=== PATIENT | male | born 1955 | race Caucasian/White ===

== ENCOUNTER → 2024-01-19 10:10 | Outpatient (REF) | payer MEDICARE, OTHER, SELFPAY | LOC: DHVS 10:10 | PROVIDERS: ATTENDING PHYSICIAN Surgery Vascular Surgery; FAMILY PHYSICIAN Nurse Practitioner Family | DX: I65.23 Occlusion and stenosis of bilateral carotid arteries (principal); I77.9 Disorder of arteries and arterioles, unspecified | CPT/HCPCS: 93880; 93922; 93925 ==

== ENCOUNTER 2024-03-08 10:15 | Inpatient (IN) | payer MEDICARE, OTHER, SELFPAY ==
[2024-03-08] VITALS (16 sets, daily range): BP systolic 86–161; BP diastolic 52–91; PULSE 57–66; BMI 23.1
[2024-03-08] MEDS: NSS 189 ML IV (06:44)
--- NOTE | 2024-03-08 08:42 | W.PN.CARDCBS ---
Addendum entered and electronically signed by Hemanth Parikh MD 03/08/24 11:49:
I saw and examined the patient.
The TURRET PUNCH OPERATOR's note was reviewed and I agree with the note.
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
EF of 20% after presenting for acute hypoxic respiratory failure and pulmonary edema at [facility] on 03/01. He was sent to [place] for cardiac catheterization. Cardiac catheterization today confirms multivessel disease, LVEDP was
normal at 12. He is being admitted for CT surgery evaluation. We are asked to follow along. Overall he is feeling well without any complaints of orthopnea, shortness of breath or chest pain. On exam he has a regular rate and rhythm with normal
S1-S2 no murmur rubs gallops were appreciated lungs clear to auscultation bilateral without any wheezes or rhonchi extremities are warm well-perfused including cyanosis or edema. No evidence of jugular venous distention. Alert and oriented x 3.
Overall, he has multivessel coronary disease in the setting of severe cardiomyopathy and recently admitted for heart failure. CT surgery to evaluate. He has multiple medical comorbidities that are quite serious. This would increase the
complications of his surgery. We await CT surgery opinion as to when and where the best option is for this procedure. LVEDP is normal so would not recommend ongoing diuresis at this time. Currently, chest pain-free, will continue hydralazine,
Imdur and carvedilol for his CAD and acute HFrEF that is now compensated. Additional GDMT as able.Given history of chronic type B dissection will need aggressive medical management of his blood pressure. Continue current medications for now with
titration as needed.
Will follow.
Original Note:
Today's Communication / Plan
-
C
asa/plavix today
gentle hydration post for CKD4
check creat post dye load
consult nephrology, CT surgery
Impression / Plan
-
This is the Cardiology Consult summary.
Full consult scanned into report.
PCP: Veronica Sánchez NP
CDY: Micha Shelton MD
68 y/o, admitted to [facility] 03/01 in with hypertensive crisis, acute hypoxemic respiratory failure with acute pulmonary edema. Known history medically managed multivessel CAD, with ANDREW, DORY, CKD3b with worsening Creat/GFR. Echo revealed new severely
reduced LVSF w/EF 28%, mod-severe CLVH, severely dilated LA, mod dil RA, no sig valvular abn. Nephrology consulted to help manage HTN and acute HF as LONNY/ARB, entresto, diuretics and spironolactone all contraindicated with worsening kidney status.
Currently tolerating combo of carvedilol, hydralazine, isosorbide, and minoxidil. Nuclear med perfusion scan completed which revealed multi-vessel CAD. Cath delayed due to renal function. Today, Creatinine is 2.51 (ranging 2.2-3.0) and GFR 25
(ranging 22-31).
He is stabilized with BPs originally 200/100s, now down to 130s/70s, off supplemental oxygen.
Transferred for [facility] today. Ventriculogram will not be performed.
PROBLEM LIST:
Acute hypoxemic respiratory failure
Acute pulmonary edema (without known history of CHF)
Leukocytosis
CKD3b/CKD4
Three-vessel coronary artery stenosis (seen on cardiac cath dated 10/05/2020)
Hypertension (documented as systemic and with hypertensive heart disease)
Carotid artery stenosis (status post carotid thromboendarterectomy 11/13/2020, right), left common carotid artery is completely occluded per duplex 08/22/2022
Infrarenal abdominal aortic aneurysm (3.0cm on MRI 03/04)
Renal artery stenosis with angioplasty
Mixed hyperlipidemia
Retinal vein thrombosis
Family history of CAD
IMPRESSION:
acute on chronic systolic HFrEF 28%
Ischemic cardiomyopathy
uncontrolled hypertension possibly renovascular-improved on Minoxidil
disseminated vascular disease
stress test consistent with multi-vessel disease
significant orthostatic BP fluxes without symptoms
Patent RRA- Left RA not well visualized on Abd MRI
PLAN:
CAD/Cardiomyopathy/Acute on chronic systolic HFrEF 28%
LHC today
Daily plavix 75mg started 03/05- continue with aspirin 81mg/d (got doses of both today)
continue isosorbide 120/d, carvedilol 25/BID, hydralazine 100 TID
will hold off on diuretics for now- had been on torsemide but on hold since 03/06
check BNP in AM, monitor lytes
plan pending cath results
CKD4-
Will give gentle hydration post cath
monitor renal function post dye load
consult nephrology re: CKD4
HTN- Continue BP management with current meds
BP low 90-100s- will hold off on minoxidil for now and monitor
PREADMIT DATA:
Patient noted yesterday that he started to feel poorly with increasing shortness of breath and noted that his blood pressures were elevated. He claims he took his normal morning medications and had no issues however his blood pressure remained
elevated and his breathing got to the point that he was uncomfortable and felt that he was gasping for air. At that point he went to the ED and was noted to have hypertensive urgency.
Patient was admitted with hypertensive crisis associated with worsening creatinine and congestive heart failure. His congestion seemed to improve and he is symptomatically much better today. An echocardiogram however demonstrated left ventricular
enlargement with severe left ventricular dysfunction.
Given his chronic kidney disease will need help from nephrology with adding GDMT.
Will discontinue labetalol and start carvedilol.
Unfortunately spironolactone is contraindicated with his CKD and potassium level of 4.9 in spite of being on diuretics
He is not on an LONNY or an ARB and question would be whether this could be added to his medical regimen or better yet Entresto
He is not on an SGLT2 inhibitor as well and these are all medications that we would want and for treatment of his LV dysfunction and congestive heart failure.
Will reach out to nephrology to help with medication adjustments.
2D ECHO 02/29/24:
Severely reduced LVSF, EF 28.9%, mod-severe CLVH
indeterminate LV diastolic dysfunction
Severely dilated LA, mod dilated RA
no hemodynamically sig valvular abnormalities
mild MR
Left heart catheterization 10/05/2020:
Assessment:
ANGIOGRAPHIC FINDINGS:
Normal LV size, normal wall motion,
Calculated EF: 65%
Coronary Angiography:
Dominance: Co-dominant
Left Main: Normal size, no disease.
Left Anterior Descending: moderate size with 50% proximal and 99% mid with distal vessel filing via left to left collaterals.
Ramus Branch: Large vessel giving off a good size tiffanie-lateral branch with 75% proximal stenosis and a large lateral branch with 65% proximal stenosis after the bifurcation.
Left Circumflex: Normal size co-dominant vessel. OM1 good size with 70% proximal stenosis. The mid and distal circumflex are good size and free of disease supplying 3 small to moderate LPL branches and collaterals to distal RCA.
Right Coronary: Moderate size co-dominant vessel with 60% ostial and 100% mid stenosis after RV marginal branch. The mid RCA gives off a small RV branch and the distal RCA is supplied by collaterals.
Progress Note - Government Program Manager
Subjective
Date of Service: March 08, 2024
Denies cp/palps/dyspnea
feels much better than last week
Objective
Vital Signs and I&O:
Vital Signs
Temp Pulse Resp Pulse Ox
97.0 F 52 20 98
03/08/24 06:26 03/08/24 06:26 03/08/24 06:26 03/08/24 06:26
Vital Signs
Temp Pulse Resp Pulse Ox
97.0 F 52 20 98
03/08/24 06:26 03/08/24 06:26 03/08/24 06:26 03/08/24 06:26
Physical Exam
Physical Exam
AAOx3, MAEE 5/
RRR S1 S2 no murmurs
CTA but decreased bibasilar, non labored
soft abd, + bs
bilat extremities w/palpable distal pulses, no edema
--- NOTE | 2024-03-08 08:55 | ITS.CL.CATH ---
Casting Machine Set Up Operator - Catheterization
Cardiac Catheterization
Procedure Report:
LEFT HEART CATHETERIZATION
Date of Procedure: [03/08/2024]
Procedures performed:
1: Coronary angiography
2: Conscious sedation
Primary Care Physician: [Unknown]
Primary Tube Handler: Donell Shelton
INDICATION: Cardiomyopathy
ACCESS: Risks and benefits of the procedure were explained to the patient. After listening to risks and benefits, the patient agreed to proceed. Right radial artery was prepped and draped in usual sterile fashion. A 6 Kittitian sheath was placed in
the right right radial artery using the Seldinger over the wire technique.
HEMODYNAMIC FINDINGS (mmHg):
LV(s/d,EDP): [97/61 LVEDP of 12]
Ao(s/d,m): [105/52 with a mean of 68]
ANGIOGRAPHIC FINDINGS:
Using a JL 3.5 catheter, the aortic valve was crossed and left ventricle. Pressures were recorded and pullback was performed. Left ventriculography was not performed to conserve IV dye used.
Coronary Angiography: Using a 5 Kittitian JR4 catheter, right coronary artery was engaged. Right coronary artery was imaged in multiple projections.
Dominance: [Likely left dominant system, but difficult to tell because of the occluded right.]
Left Main: Severely stenosed. Short left main coronary artery. Severely calcified. At least 50% ostial stenosis. There is severe pressure dampening upon engagement with a 6 Kittitian diagnostic catheter 5 Kittitian diagnostic catheter and 4 Kittitian
diagnostic catheter. I had difficulty filling the coronary arteries because of the left main stenosis.
Left Anterior Descending: [Large vessel. Severely calcified. 99% stenosis long diffuse disease in the midsegment with diminished resting flow. Very large septal employment clerk branches giving collaterals to the distal right coronary artery. 1 large
diagonal branch with severe ostial stenosis.
Left Circumflex: [Large vessel. Probably dominant. 60 to 70% ostial left circumflex artery stenosis. Large OM1 vessel. 80% proximal OM1 stenosis.
Right Coronary: [Right coronary artery is 100% chronically totally occluded. There is a marginal branch that is patent with severe disease in the proximal and mid segments. ]
Fluoroscopy Time (min): [11.8 minutes]
Radiation Dose (mGy): 650.83 mGy
DAP (Gy.cm2): 56.374.
Closure device: None. A TR band was applied for hemostasis at the right wrist.
Complications: None.
ASSESSMENT:
1: Severe triple-vessel coronary artery disease
2: Normal left ventricular end-diastolic pressure
CONCLUSIONS and RECOMMENDATIONS:
1: [Based on the patient's presentation, severe coronary artery disease, CT surgery consultation was recommended.]
I was present with the patient for the duration of the moderate sedation and supervised staff who monitored the patient for the entire procedure. Details of sedation are entered by the nurse administering the sedation and details of the patient's
monitoring status are entered by a sign monitor role staff member into the [facility] electronic record system. Please see the nursing flow sheets for documentation of the name of the independent trained observer, and intra-service start and
end times.
I administered moderate sedation throughout this [40] minute procedure. An independent trained observer administered medications at my direction, and monitored, along with the monitor role staff member, the patient's level of consciousness and
physiological status throughout
[2024-03-08] MEDS: NSS 1000 IV (10:35)
--- NOTE | 2024-03-08 10:48 | HPS.HSE ---
Family Physician
-
Family Physician: CANDI Davies
Chief Complaint
-
CHF
History of Present Illness
68-year-old male admitted to [facility] February 28 for flash pulmonary edema, shortness of breath. Found to be in hypertensive emergency with acute heart failure and acute kidney injury.
Treated for heart failure and improved. Referred to [facility] today as a transfer for cardiac catheterization and consideration of CABG.
Currently patient feels well, is asymptomatic.
Medical History
Past Medical History
Past Medical History: Reports Other
Additional Past Medical History:
CAD, three-vessel
CKD 3b
Essential hypertension
Orthostatic hypotension
Infrarenal abdominal aortic aneurysm
Renal artery stenosis, treated with angioplasty
Mixed hyperlipidemia
Retinal vein thrombosis
Carotid artery stenosis
Past Surgical History: Reports Other
Additional Past Surgical History:
Right CEA
Tonsillectomy
Social History
Tobacco: Non-smoker
Alcohol: Former
Drug: None
Family History
Family History: CAD
Allergies / Home Medications
Allergies reflects when Allergies were last updated in [employer].
Home Medications with original date entered in [employer]
Allergy/Medication List:
Allergies
Allergy/AdvReac Type Severity Reaction Status Date / Time
atorvastatin [From Lipitor] Allergy MYALGIA Verified 03/08/24 06:41
Home Medications
labetalol 100 mg tablet 100 mg PO BID Blood pressure 11/01/20
ezetimibe 10 mg tablet (Zetia) 10 mg PO DAILY 03/07/24
hydralazine 100 mg tablet 100 mg PO BID 03/07/24
hydralazine 50 mg tablet 50 mg PO DAILY 03/07/24
minoxidil 2.5 mg tablet 5 mg PO DAILY 03/07/24
Review of Systems
-
History Source: Patient
A 12 point ROS was completed and negative except as noted: Yes
Physical Exam
Vital Signs
Vital Signs
Temp Pulse Resp BP Pulse Ox
97.6 F 51 18 86/56 94
03/08/24 09:03 03/08/24 09:18 03/08/24 09:03 03/08/24 09:18 03/08/24 09:03
Physical Exam
General: Well Developed, Well Nourished, No Apparent Distress and Comfortable
HEENT: NormoCephalic, Anicteric and Moist mucous membranes
Respiratory: Clear
Cardiac: S1/S2 and Regular Rhythm
GI: Soft, Non Tender and Non Distended
Genito-urinary: Deferred by me
Musculoskeletal: No Clubbing, No Cyanosis and No Edema
Skin: Warm and Dry
Neuro: AO x 3
Hematologic/Lymphatic: No Lymphadenopathy
Psych: Calm
Impression/Plan
-
Recent acute hypoxic respiratory failure - admitted to [facility] February 28. Diagnosed with hypertensive emergency on admission. Required BiPAP therapy and treatment of CHF.
Three-vessel coronary artery disease -admit to IVU. Cardiac catheterization results noted. CT surgery consulted.
Essential hypertension -relatively hypotensive currently. Patient believes he received all his antihypertensives this morning and [facility] prior to transfer. IV fluids ordered. Hold further antihypertensives until blood pressure
improves. Check orthostatic vital signs.
HUEY on CKD 3B -admitted to [facility] last week with HUEY. Check labs in the morning. Monitor for any contrast-induced nephropathy. IV fluids ordered.
Renal artery stenosis -treated with angioplasty in the past.
Infrarenal abdominal aortic aneurysm
Carotid stenosis -underwent right CEA in the past.
Hyperlipidemia
Full code
--- NOTE | 2024-03-08 11:22 | W.CON.NEPH ---
Consultation
-
Date/Time Consultation Requested: 03/08/24 0841
Date/Time Consultation Performed: 03/08/24 1245
Requesting Provider: Fay Pyle
Performing Provider: Mignon Alexis
Reason for Consultation: HUEY with CKD
Medical History
-
Chief Complaint: SOB
History of Present Illness:
68 y/o, admitted to [facility] 03/01 in with hypertensive crisis, acute hypoxemic respiratory failure with flash pulmonary edema. Known history medically managed multivessel CAD, with ANDREW, DORY, CKD3b with baseline cr 1.7-2 (follows Dr [place]), known ?renal
art stenosis s/p stent noted in HUEY and Echo revealed new severely reduced LVSF w/EF 28%, mod-severe CLVH, severely dilated LA, mod dil RA. He also has resitant HTN for which managed with carvedilol, hydralazine, isosorbide, and minoxidil. GDMT was
limited due to HUEY. He underwent Nuclear med perfusion scan at [facility] which revealed multi-vessel CAD hence Transferred for [facility] today. Cath shows MVD and CT surg consulted. Nephrology consulted to manage HUEY with CKD. Today, Creatinine is 2.51 (ranging
2.2-3.0 at [facility] per records), no nephro records to review. Pt reports undergoing MRA of renal art and there was concern of poor visualization of left renal art- I do not have reports. he offers no CP or sob, abd pain. No n/v. no dysuria.
Past Medical History
CAD, three-vessel
CKD 3b baseline cr 1.7-2-follows Dr washintgon
Essential hypertension
Orthostatic hypotension
Infrarenal abdominal aortic aneurysm
Renal artery stenosis, treated with angioplasty
Mixed hyperlipidemia
Retinal vein thrombosis
Carotid artery stenosis
Past Surgical History: Other (Right CEA Tonsillectomy)
Social History
Tobacco: Non-Smoker
Alcohol: Former
Drug: None
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
Family History
no CKD
Family History: Not Pertinent
Allergies / Home Medications
Allergy/AdvReac Type Severity Reaction Status Date / Time
atorvastatin [From Lipitor] Allergy MYALGIA Verified 03/08/24 06:41
�Medication �Instructions �Recorded �Confirmed �Type
labetalol 100 mg tablet 100 mg PO BID Blood pressure 11/01/20 03/07/24 History
ezetimibe 10 mg tablet (Zetia) 10 mg PO DAILY 03/07/24 03/07/24 History
hydralazine 100 mg tablet 100 mg PO BID 03/07/24 03/08/24 History
hydralazine 50 mg tablet 50 mg PO DAILY 03/07/24 03/07/24 History
minoxidil 2.5 mg tablet 5 mg PO DAILY 03/07/24 03/07/24 History
Review of Systems
-
All complete 12 point ROS have been inquired and found negative other than state din HPI
Physical Exam
Vital Signs
Vital Signs
Temp Pulse Resp BP Pulse Ox
97.6 F 56 18 102/53 94
03/08/24 09:03 03/08/24 11:00 03/08/24 09:03 03/08/24 11:00 03/08/24 09:03
Lab Results
reportedly cr was at 22.5 today at [facility]
Cath:
ASSESSMENT:
1: Severe triple-vessel coronary artery disease
2: Normal left ventricular end-diastolic pressure
Physical Exam
General: Awake, Alert, Oriented, AOx3 and No Distress
HEENT: EOMI, Anicteric, Facial Symmetry, Neck Supple and No JVD
Respiratory: Clear, Normal Excursion and Nonlabored Respirations
Cardiac: S1/S2 and Regular Rate/Rhythm
Breast: Deferred by me
Abdomen: Soft, Nontender and Nondistended
Musculoskeletal: No Cyanosis and No Edema
Skin: No Rash
Neuro: Nonfocal/Grossly Intact
Psych: Mood/afflect pleasant, Insight/judgement good and Appropriate
Data Reviewed
-
Labs: Labs Reviewed by me, Discussed with Nurse and Discussed with Patient
Assessment/Plan
-
IMP:
acute on chronic systolic HFrEF 28%
MVD on cath 03/08
Ischemic cardiomyopathy
uncontrolled hypertension possibly renovascular-improved on Minoxidil
disseminated vascular disease
Recent acute hypoxic respiratory failure
HUEY on CKD 3B -cr 1.7-2, Dr Washington
Renal artery stenosis -treated with angioplasty in the past.
Infrarenal abdominal aortic aneurysm
Carotid stenosis s/p right CEA in the past.
Hyperlipidemia
significant orthostatic BP fluxes without symptoms
Patent RRA- Left RA not well visualized on Abd MRI
PLan:
A/to [facility] flash with pulm edema, low EF, HTN and acute reps failure on 03/05 here for [facility] today
noted MVD on cath 03/08, CT surg consulted
HUEY with CKD-cr reportedly at 2.5 today, baseline cr likely at 1.7-2
monitor labs with preventive IVF
BP are low currently-BP meds with holding parameters
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
vol status seem stable clinically, LVEDP of 12
he also noted to have MRA yesterday-but left RA not visualized well-will need records to review
follow labs daily
d/w pt , he is aware of RODOLFO risk post cath
d/w nursing
--- NOTE | 2024-03-08 13:37 | CONSULT.CT ---
Consultation
-
Performing Provider: Alexis Jain PA-C
Reason for Consultation: Multivessel CAD, CABG Consideration
Patient History
Physicians
Family Physician: Veronica Sánchez NP
Outpatient Final Expense Agent: Donell Shelton MD
Inpatient Final Expense Agent: Ammon Sánchez MD (), Roma Parikh MD
History of Present Illness
The patient is a 68 year old white male with a PMHx significant for CAD, bilateral carotid artery stenosis with prior R CEA by Dr. Alanis and occluded L ICA, DORY with prior angioplasty to right renal artery, HTN, HLD, chronic type B aortic
dissection, infrarenal AAA, orthostatic hypotension, CKD IIIb-IV who presented initially to [facility] with complaints of progressively worsening dyspnea, fatigue, lightheadedness. He states he never had chest pain. He was found to have significant
pulmonary edema and new EF of 20-30%. Also notable was a new HUEY. He was treated medically and recovered from the acute heart failure and renal failure and was subsequently transferred here for [facility]. This revealed multivessel coronary artery disease
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 Given these findings, he was referred for CABG as the definitive revascularization strategy.
Currently, he is resting comfortably and without complaints. He denies a history of CVA/TIA, bleeding/clotting disorders, dysphagia, liver disease, issues with prior anesthesia, chest radiation/procedures, prior arrythmias. He is a lifelong
nonsmoker, social ETOH. 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 He does have prior exposures to asbestos.
Past Medical History
Multivessel CAD
ICMP, LVEF 20-30%
CKD IIIb-IV
Carotid Artery Stenosis, prior R CEA, known occluded L ICA
HTN
HLD
DORY with prior R RA Angioplasty
Chronic Type B Aortic Dissection
Infrarenal AAA
Past Surgical History
R CEA
Tonsillectomy
Social History
Alcohol: Occasional
Drug: None
Tobacco: Non-Smoker
Allergies
Allergy/AdvReac Type Severity Reaction Status Date / Time
atorvastatin [From Lipitor] Allergy MYALGIA Verified 03/08/24 06:41
Home Medications
�Medication �Instructions �Recorded �Confirmed �Type
labetalol 100 mg tablet 100 mg PO BID Blood pressure 11/01/20 03/07/24 History
ezetimibe 10 mg tablet (Zetia) 10 mg PO DAILY 03/07/24 03/07/24 History
hydralazine 100 mg tablet 100 mg PO BID 03/07/24 03/08/24 History
hydralazine 50 mg tablet 50 mg PO DAILY 03/07/24 03/07/24 History
minoxidil 2.5 mg tablet 5 mg PO DAILY 03/07/24 03/07/24 History
Review of Systems
-
History Source: Patient
General: Reports No Symptoms
HEENT: Reports No Symptoms
Respiratory: Reports SOB
Cardiac: Reports Known Vascular Disease
Abdomen/GI: Reports No Symptoms
: Reports No Symptoms
Musculoskeletal: Reports No Symptoms
Skin: Reports No Symptoms
Neurological: Reports No Symptoms
Vascular: Reports No Symptoms
Physical Exam
Vital Signs
Temp 97.6 F 03/08/24 09:03
Temp route: Oral 03/08/24 09:03
Pulse 56 03/08/24 11:00
Rhythm: Sinus bradycardia 03/08/24 11:05
Resp Rate 18 03/08/24 09:03
Blood pressure 102/53 03/08/24 11:00
Blood pressure extremity used: Left upper arm 03/08/24 09:03
Position: Lying 03/08/24 09:03
MAP (cuff-Mio Monitor) 68 03/08/24 11:00
SaO2 94 03/08/24 09:03
Oxygen Mode of Delivery Room air 03/08/24 11:05
Can the patient verbally communicate their pain? Yes 03/08/24 11:05
Actual Weight 63.049 kg 03/08/24 06:25
Body Mass Index (BMI) 23.1 03/08/24 06:25
Diagnostic Studies
[facility] 03/08/2024
Left Main: Severely stenosed. Short left main coronary artery. Severely calcified. At least 50% ostial stenosis. There is severe pressure dampening upon engagement with a 6 British diagnostic catheter 5 British diagnostic catheter and 4 British
diagnostic catheter. I had difficulty filling the coronary arteries because of the left main stenosis.
Left Anterior Descending: [Large vessel. Severely calcified. 99% stenosis long diffuse disease in the midsegment with diminished resting flow. Very large septal food storeroom clerk branches giving collaterals to the distal right coronary artery. 1 large
diagonal branch with severe ostial stenosis.
Left Circumflex: [Large vessel. Probably dominant. 60 to 70% ostial left circumflex artery stenosis. Large OM1 vessel. 80% proximal OM1 stenosis.
Right Coronary: [Right coronary artery is 100% chronically totally occluded. There is a marginal branch that is patent with severe disease in the proximal and mid segments. ]
Exam
General: Well Developed, Well Nourished and No Apparent Distress
HEENT: Normocephalic and Anicteric
Neck: Trachea Midline
Respiratory: Clear
Cardiac: S1/S2 and Regular Rhythm
GI: Soft, Non Tender and Non Distended
Rectal: Deferred by Provider
Skin: Warm and Dry
Neuro: Awake and AO x 3
Psych: Calm
Assessment / Plan
-
1. Multivessel CAD: Given the patient's age and multivessel CAD with with left main component, we will consider CABG as the definitive revascularization strategy. I had a long discussion with the patient about the perioperative expectations
including indications, risks, benefits, post op course and expected restrictions. He is adamant that due to his work, he would be unable to have major surgery & be restricted from work for the next couple of months as he already has some jobs lined
up for Mar/Apr. I explained to him in detail that he has significant coronary artery disease and that CABG is often the most durable solution to this problem. He states that he would only consider it if there were no alternatives. Given this, will
need to have Dr. Turk review the case with IC and come to a consensus on what would be best for him. Hold plavix for now as this requires a 5 day washout in the event that surgery is pursued. Preop risk stratification will be put on hold for
now.
2. HFrEF, LVEF 20-30%: GDMT per cardiology. Will be at increased risk for post op shock & associated complications.
3. Severe carotid artery stenosis, s/p R CEA: known occluded L ICA. There is antegrade vertebral flow bilaterally on recent duplex. Follows with Dr. Alanis.
4. CKD IIIb-IV: at risk for RODOLFO. Nephrology consulted. Follow closely. HF GDMT limited by renal function.
5. Chronic Type B Aortic Dissection: Strict BP control, SBP <130
6. Infrarenal AAA
7. Hx of Renal Artery Stenosis s/p R RA Angioplasty
8. HTN
9. HLD
The case will be discussed in detail with the attending surgeon Dr. Turk. He will provide definitive recommendations regarding surgical candidacy/timing in the form of an addendum.
Data Reviewed
-
EKG: Tracing Personally Visualized and interpreted
Speech/Language Therapist: Image Personally Visualized and interpreted
Labs: Labs Reviewed by me
Old Records: Reviewed
Total Time Spent with Patient (in minutes): 60
[2024-03-08] MEDS: APRESOLINE 100 MG PO ×2 (17:19→22:22)
--- NOTE | 2024-03-08 18:41 | CM ---
spoke to pt in room, he is prev indep, lives with his in a 3 story home with 4 steps to enter. he denies any dme's. plan is for CABG this admission , possibly thursday. cm following and will do preop teaching this week.
[2024-03-08] MEDS: COREG 25 MG PO (19:40)
--- NOTE | 2024-03-08 23:16 | PTCARENOTE ---
AOX3 and pleasant. Tele- SR w/ PVCs. HR 60-70s. Pt has no c/o pain/discomfort at this time. Currently in bed; call soila w/in reach.
[2024-03-09] VITALS (10 sets, daily range): BP systolic 111–157; BP diastolic 67–89; PULSE 56–64; BMI 23.7
[2024-03-09 03:33] LABS: Hematocrit 39.1 % (39.0-52.0); Hemoglobin 13.5 g/dL (13.0-18.0); Mean Corp Hgb Conc. 34.5 g/dL (33.0-37.0); Mean Corpuscular Hgb 28.7 pg (27.0-31.0); Mean Corpuscular Volume 83.2 fL (80.0-94.0); Mean Platelet Volume 11.5 fL (7.4-10.4); Platelet Count 211 10^3/uL (130-400); Red Cell Dist. Width 13.2 % (11.5-14.5); White Blood Cell Count 11.4 10^3/uL (4.8-10.8)
[2024-03-09 03:52] LABS: NT-proBNP 2000 pg/ml
[2024-03-09 03:58] LABS: ALT (SGPT) 24 U/L (0-50); AST (SGOT) 27 U/L (17-59); Albumin 3.8 g/dl (3.5-5.0); Alkaline Phosphatase 98 U/L (38-126); Blood Urea Nitrogen 51 mg/dl (9-20); Calcium 9.3 mg/dl (8.4-10.2); Carbon Dioxide 23 mmol/L (22-30); Chloride 103 mmol/L (98-107); Estimated Creatinine Clearance 28 ml/min; Glucose 93 mg/dl (70-99); HDL Cholesterol 49 mg/dl; LDL Cholesterol, Calculated 89 mg/dl; Potassium 4.7 mmol/L (3.5-5.1); Sodium 140 mmol/L (135-145); Total Bilirubin 0.5 mg/dl (0.2-1.3); Total Cholesterol 169 mg/dl (50-199); Total Protein 6.6 g/dl (6.3-8.2); Triglyceride 158 mg/dl (10-149); Very Low Density Lipoprotein 31 mg/dl (0-30); eGFR 31.83
--- NOTE | 2024-03-09 08:11 | W.PN.HOSP.TC ---
Today's Communication/Plan
-
Await CT surgery consult
Assessment / Plan
Assessment / Plan
Gen-AAOx3, NAD
HEENT-NC, AT, anicteric, clear oral mm
Neck-supple
CV-reg, no M, +S1/S2
Lungs-clear B/L
Abd-soft, NT, ND
Ext-no edema
Musculoskeletal-no cyanosis, clubbing
Skin-warm and dry
Neuro-grossly non-focal
Psych-calm, cooperative
Recent acute hypoxic respiratory failure - admitted to [facility] February 28. Diagnosed with hypertensive emergency on admission. Required BiPAP therapy and treatment of CHF. Oxygenation currently normal on room air, 98%.
Three-vessel coronary artery disease -admit to IVU. Cardiac catheterization results noted. CT surgery consulted. Continue aspirin, beta-blockade.
Essential hypertension -hypotension resolved. Antihypertensives ordered with hold parameters. Not orthostatic.
HUEY on CKD 3B -admitted to [facility] last week with HUEY. Monitor for any contrast-induced nephropathy. IV fluids ordered. Creatinine 2.2, appears to be at baseline. Nephrology following.
Renal artery stenosis -treated with angioplasty in the past.
Infrarenal abdominal aortic aneurysm
Carotid stenosis -underwent right CEA in the past.
Hyperlipidemia
Full code
Anticipated Discharge: > 48 hours
Subjective/Interval History
-
Date of Service: March 09, 2024
Patient seen and examined. No complaints.
Objective Data
-
Labs:
Laboratory Results
03/09/24
03:01
WBC 11.4 H
Hgb 13.5
Hct 39.1
Plt Count 211
Sodium 140
Potassium 4.7
Chloride 103
Carbon Dioxide 23
BUN 51 H
Creatinine 2.2 H
Glucose 93
Calcium 9.3
Total Bilirubin 0.5
AST 27
ALT 24
Alkaline Phosphatase 98
Vital Signs:
Vital Signs
Temp Pulse Resp BP Pulse Ox
98.1 F 66 16 124/81 98
03/09/24 02:53 03/09/24 02:40 03/09/24 02:53 03/09/24 02:40 03/09/24 02:53
I&O
03/08/24 03/09/24 03/10/24
06:59 06:59 06:59
Intake Total 630 / 630
Balance 630 / 630
Review of Systems
-
History Source: Patient
All other systems: Reviewed and negative
[2024-03-09] MEDS: APRESOLINE 100 MG PO (09:50)
[2024-03-09] MEDS: COREG 25 MG PO ×2 (09:50→20:55)
[2024-03-09] MEDS: IMDUR (EXTENDED RELEASE) 120 MG PO (09:51)
[2024-03-09] MEDS: ZETIA 10 MG PO (09:51)
[2024-03-09] MEDS: LOW STRENGTH ASPIRIN 81 MG PO (09:51)
--- NOTE | 2024-03-09 10:43 | PTCARENOTE ---
Received patient this morning oob in the chair. Slept well, denies any chest pain or sob. Waiting to speak with CT surgery. Very concerned about need for surgery, agreeable to the surgery but due to financial considerations would like to wait until
May or feels that he would not be able to afford his bills etc. Encouraged to discuss this with his physician.
--- NOTE | 2024-03-09 10:57 | W.PN.NEPH.PH ---
Today's Communication / Plan
-
observe
follow bmp
Assessment/Plan
-
IMP:
acute on chronic systolic HFrEF 28%
MVD on cath 03/08
Ischemic cardiomyopathy
uncontrolled hypertension possibly renovascular-improved on Minoxidil
disseminated vascular disease
Recent acute hypoxic respiratory failure
HUEY on CKD 3B -cr 1.7-2, Dr Donald
Renal artery stenosis -treated with angioplasty in the past.
Infrarenal abdominal aortic aneurysm
Carotid stenosis s/p right CEA in the past.
Hyperlipidemia
significant orthostatic BP fluxes without symptoms
Patent RRA- Left RA not well visualized on Abd MRI
PLan:
A/to [facility] flash with pulm edema, low EF, HTN and acute reps failure on 03/05 here for [facility] today
noted MVD on cath 03/08, CT surgery consulted : decision pending
HUEY with CKD-cr reportedly at 2.2 today, baseline cr likely at 1.7-2 , urine output not recorded, weights up
Hemodynamically stable on hydralazine and carvedilol
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
volume status seem stable clinically, LVEDP of 12,currently off diuretics
he also noted to have MRA 03/07-but left RA not visualized well-will need records to review
follow labs daily
d/w pt , he is aware of RODOLFO risk post cath
d/w nursing
-
-
Date of Service: March 09, 2024
CC / HPI / ROS
-
Chief Complaint:
HUEY
History of Present Illness:
Creatinine improved to 2.2
Hemodynamically stable
Review of Systems:
No chest pain or shortness of breath
Subjectively nonoliguric
Labs
-
Labs:
WBC 11.4 10^3/uL (4.8-10.8) H 10/02/24 03:01
RBC 4.70 10^6/uL (4.70-6.10) 03/09/24 03:01
Hgb 13.5 g/dL (13.0-18.0) 03/09/24 03:01
Hct 39.1 % (39.0-52.0) 03/09/24 03:01
Plt Count 211 10^3/uL (130-400) 03/09/24 03:01
Sodium 140 mmol/L (135-145) 03/09/24 03:01
Potassium 4.7 mmol/L (3.5-5.1) 03/09/24 03:01
Chloride 103 mmol/L (98-107) 03/09/24 03:01
Carbon Dioxide 23 mmol/L (22-30) 03/09/24 03:01
BUN 51 mg/dl (9-20) H 03/09/24 03:01
Creatinine 2.2 mg/dL (0.7-1.3) H 03/09/24 03:01
eGFR 31.83 03/09/24 03:01
Glucose 93 mg/dl (70-99) 03/09/24 03:01
Calcium 9.3 mg/dl (8.4-10.2) 03/09/24 03:01
Zbd-T-Puitgvnnzfi Pept 2000 pg/ml 03/09/24 03:01
Albumin 3.8 g/dl (3.5-5.0) 03/09/24 03:01
Physical Exam
-
Vital Signs:
Vital Signs
Temp Pulse Resp BP Pulse Ox
97.9 F 62 20 157/87 96
03/09/24 08:25 03/09/24 09:50 03/09/24 08:25 03/09/24 09:50 03/09/24 08:25
Cardiovascular:: Regular rate and rhythm
Respiratory:: Bilateral: CTA
Lung Excursion:: Normal
Abdomen:: Nontender
Bowel Sounds:: Normal
Extremity Edema:: None: Bilateral:
Alanis Catheter: No
--- NOTE | 2024-03-09 12:17 | W.PN.CD ---
Addendum entered and electronically signed by Balta Montes DO 03/09/24 15:57:
I have reviewed the patient's films and discussed the issues with the patient.
There are no percutaneous options for LAD revascularization.
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
He is willing if not eager to undergo CABG, but would like to wait until after Thanksgi so he can finish two larger projects and have enough income to pay rent/utilities until his work picks up again.
We discussed risks and benefits to this strategy, including the fact that we cannot confidently say he will not return with similar symptoms.
He understands all of these factors.
His symptoms are more related to heart failure, likely due to hypertensive emergency/crisis, not acute coronary syndrome.
Based on the patient's understanding of the risks/benefits and his presentation, it is reasonable to make sure that his blood pressure is controlled to avoid recurrent flash pulmonary edema, that he is taking maximally tolerated GDMT, and that he
has plans to return for elective CABG after Thanks. We will monitor response to doxazosin after removal of hydralazine.
Original Note:
Today's Communication / Plan
-
CABG evaluation.
D/C hydralazine.
Start doxazosin 1 mg daily and monitor.
Impression / Plan
-
Impression/Plan: 68 y/o male with known HTN, CKD, ANDREW s/p RCEA (HEAD OF GLOBAL STRATEGIC PARTNERSHIPS of LCA), known CAD being medically managed and [place] type B dissection involving the renal arteries admitted to [facility] 03/01 in with hypertensive crisis, acute hypoxemic respiratory
failure with acute pulmonary edema and a new diagnosis of ischemic cardiomyopathy, transferred for repeat catheterization and subsequent CABG evaluation.
#CAD
-Acute on chronic.
-Coronary angiography re-confirms severe, multivessel disease.
-CABG evaluation.
-Continue aspirin, ezetimibe.
#ICMO
-New diagnosis.
-Not currently in decompensated heart failure.
-GDMT is limited by renal function. He is currently on carvedilol, hydralazine and isosorbide mononitrate.
-He is currently beta blocked, but hydralazine is contraindicated in aortic dissection.
#Hypertension/Hypertensive crisis
-Acute on chronic, now controlled.
-Continue carvedilol.
-Discontinue hydralazine.
-Consider doxazosin or terazosin for BP control, given inability to use ACEI/ARB/ARNi/MRA for renal function and CCB for LVEF 25-30%.
#[place] Type B dissection/AAA
-Chronic.
-Involving the left renal artery.
-AAA = 3.0 cm on MRI from 03/04/2024.
-Imaging/reports currently unavailable.
#CKD3b/DORY
-Stable. GFR = 31.
-Remote renal artery stenosis s/p renal artery stent placement.
-Monitor with medication adjustments.
#HLD
-Chronic, stable.
-Total cholesterol = 169, LDL = 89, HDL = 49, Triglycerides = 158.
-Intolerance of atorvastatin.
-Continue ezetimibe 10 mg daily.
-Rechallenge with statin vs. PCSK9i.
-Goal LDL < 55, triglycerides < 150.
PCP: Veronica Sánchez NP
CDY: Micha Shelton MD
Subjective/Interval History:
No acute events.
Renal function is stable.
DATA:
2D ECHO 02/29/24:
Severely reduced LVSF, EF 28.9%, mod-severe CLVH
indeterminate LV diastolic dysfunction
Severely dilated LA, mod dilated RA
no hemodynamically sig valvular abnormalities
mild MR
Left heart catheterization 10/05/2020:
Assessment:
ANGIOGRAPHIC FINDINGS:
Normal LV size, normal wall motion,
Calculated EF: 65%
Coronary Angiography:
Dominance: Co-dominant
Left Main: Normal size, no disease.
Left Anterior Descending: moderate size with 50% proximal and 99% mid with distal vessel filing via left to left collaterals.
[place] Branch: Large vessel giving off a good size tiffanie-lateral branch with 75% proximal stenosis and a large lateral branch with 65% proximal stenosis after the bifurcation.
Left Circumflex: Normal size co-dominant vessel. OM1 good size with 70% proximal stenosis. The mid and distal circumflex are good size and free of disease supplying 3 small to moderate LPL branches and collaterals to distal RCA.
Right Coronary: Moderate size co-dominant vessel with 60% ostial and 100% mid stenosis after RV marginal branch. The mid RCA gives off a small RV branch and the distal RCA is supplied by collaterals.
Physical Exam
Vital Signs/Labs
Vital Signs
Temp Pulse Resp BP Pulse Ox
37.2 C 62 20 118/67 94
03/09/24 11:19 03/09/24 12:00 03/09/24 11:19 03/09/24 11:21 03/09/24 11:19
03/08/24 03/09/24 03/10/24
11:59 11:59 11:59
Actual Weight 63.049 kg 64.5 kg
03/09/24 03:01
03/09/24 03:01
Triglycerides 158 mg/dl (10-149) H 03/09/24 03:01
LDL Cholesterol, Calc 89 mg/dl 03/09/24 03:01
VLDL Cholesterol, Calc 31 mg/dl (0-30) H 03/09/24 03:01
HDL Cholesterol 49 mg/dl 03/09/24 03:01
03/09/24
03:01
Jjo-I-Gobyfltbsmo Pept 2000
Physical Exam
Constitutional: No acute distress and Comfortable
EENT: Anicteric and Moist mucous membranes
Cardiovascular: Rhythm & rate is regular, Pedal edema is absent, JVD pressure is normal, S1S2 is normal and Murmur/rub/gallop absent
Respiratory: Respiratory effort normal, Lungs clear to auscul., Wheeze Absent, Crackles Absent and Rhonchi Absent
GI: Soft, Distention absent, Flat, Non tender and Normal bowel sounds
Neuro/Psych: AO x 3
Data Reviewed
-
Date of Service: March 09, 2024
Medical Decision Making: Reviewed Test Results, Independent Historian Assessment and Test Interpretation
EKG: Tracing Personally Visualized and interpreted and Report Reviewed by me
Medical Tests (PFT, Pathology etc): Image Personally Visualized and interpreted and Report Reviewed by me
Labs: Labs Reviewed by me
Old Records: Requested and Reviewed
--- NOTE | 2024-03-09 15:26 | CM ---
CM following for DC planning needs.
Awaiting CT Surgery plan. Reviewed initial assessment. Pt. from mobile home alone. He is functionally indep. w/ ADLs, mobility at baseline.
Will follow for DC planning needs.
--- NOTE | 2024-03-09 22:03 | PTCARENOTE ---
Received pt at handoff. AOX3 and pleasant. Tele- SR. HR 50-60s. Pt has no c/o pain/discomfort at this time. Plan of care discussed w/ pt. Verbalizes understanding. Currently in bed; call soila w/in reach.
[2024-03-10] VITALS (26 sets, daily range): BP systolic 105–208; BP diastolic 68–106; PULSE 47–57
[2024-03-10 03:24] LABS: Blood Urea Nitrogen 49 mg/dl (9-20); Calcium 9.5 mg/dl (8.4-10.2); Carbon Dioxide 23 mmol/L (22-30); Chloride 104 mmol/L (98-107); Estimated Creatinine Clearance 29 ml/min; Glucose 88 mg/dl (70-99); Potassium 4.6 mmol/L (3.5-5.1); Sodium 139 mmol/L (135-145); eGFR 33.66
--- NOTE | 2024-03-10 08:30 | W.PN.HOSP.TC ---
Today's Communication/Plan
-
Await CT surgery input
Assessment / Plan
Assessment / Plan
Gen-AAOx3, NAD
HEENT-NC, AT, anicteric, clear oral mm
Neck-supple
CV-reg, no M, +S1/S2
Lungs-clear B/L
Abd-soft, NT, ND
Ext-no edema
Musculoskeletal-no cyanosis, clubbing
Skin-warm and dry
Neuro-grossly non-focal
Psych-calm, cooperative
Recent acute hypoxic respiratory failure - admitted to [facility] February 28. Diagnosed with hypertensive emergency on admission. Required BiPAP therapy and treatment of CHF. Oxygenation currently normal on room air, 98%.
Three-vessel coronary artery disease -admit to IVU. Cardiac catheterization results noted. CT surgery consulted. Continue aspirin, beta-blockade.
Essential hypertension -hypotension resolved. Antihypertensives ordered with hold parameters. Not orthostatic.
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 Unclear if he had angioplasty of the right renal artery, patient does not know anything about this.
HUEY on CKD 3B -admitted to [facility] last week with HUEY. Monitor for any contrast-induced nephropathy. IV fluids ordered. Creatinine 2.1, appears to be at baseline. Nephrology following.
Renal artery stenosis -treated with angioplasty in the past.
Infrarenal abdominal aortic aneurysm
Carotid stenosis -underwent right CEA in the past.
Hyperlipidemia
Full code
Anticipated Discharge: > 48 hours
Subjective/Interval History
-
Date of Service: March 10, 2024
Patient seen and examined. No complaints.
Objective Data
-
Labs:
Laboratory Results
03/10/24
02:24
Sodium 139
Potassium 4.6
Chloride 104
Carbon Dioxide 23
BUN 49 H
Creatinine 2.1 H
Glucose 88
Calcium 9.5
Vital Signs:
Vital Signs
Temp Pulse Resp BP Pulse Ox
97.9 F 55 20 145/87 97
03/10/24 08:11 03/10/24 02:17 03/10/24 08:11 03/10/24 02:17 03/10/24 08:11
I&O
03/09/24 03/10/24 03/11/24
06:59 06:59 06:59
Intake Total 630 / 630 960 / 960
Output Total 450 / 450
Balance 630 / 630 510 / 510
Review of Systems
-
History Source: Patient
All other systems: Reviewed and negative
[2024-03-10] MEDS: CARDURA 1 MG PO (08:52)
[2024-03-10] MEDS: IMDUR (EXTENDED RELEASE) 120 MG PO (08:53)
[2024-03-10] MEDS: LOW STRENGTH ASPIRIN 81 MG PO (08:53)
[2024-03-10] MEDS: ZETIA 10 MG PO (08:53)
[2024-03-10] MEDS: COREG PO (08:53)
--- NOTE | 2024-03-10 09:14 | PTCARENOTE ---
Received patient at shift change. Pt SB on the monitor, HR in the 40s-50s. 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 Knee high SCDs in place. No complaints from pt at this time, call cm within reach.
--- NOTE | 2024-03-10 09:33 | W.PN.UPDATE ---
Update Note
Progress Note Update
Patient seen with Dr. Turk this morning. He continues to be apprehensive about surgery but is now agreeable. He is tentatively scheduled for ThursdayMarch [address] Turk[address] Pre-Operative testing will be initiated. STS score will then be
calculated. Continue to trend BMP daily.
--- NOTE | 2024-03-10 10:26 | W.PN.UPDATE ---
Update Note
Progress Note Update
Pt seen and exmained
Cath and imaging reviewed
Very complicated 68 y/o male recently admitted with CHF symptoms while in hypertensive crisis (sbp >200), without evidence of cp
Has a hx/o known mvcad treated medically (per pts choice)
Cath on this admission reveals ostial left main (by pressure damping) as well as mvcad
Knew finding at this time is severe LV dysfunction with EF <30 (previously normal?)
His comorbidites include CKD (creat 2.1), hx/o cva with RCEA and left carotid totally occluded
By records, pt also has a hx/o of Type B aortic dissection
Intially pt was not interested in surgery - at this time- however he is willing to stay.
Currently he is stable, not hypertensive and not in chf.
I agree cabg to lad/diag/om, and ?pda would be indicated to help in the mangement of his CHF, however his risk is significant given Renal, Cerebral risks.
I have reviewed everything with the patient in detail
All questions were answered
I believe he understands the issues and he wishes to proceed with surgery at this time
Plavix washout
Plan high risk cabg on Thursday03.15.24
--- NOTE | 2024-03-10 10:27 | W.PN.NEPH.PH ---
Today's Communication / Plan
-
Patient has stable
Creatinine at baseline and blood pressure
Assessment/Plan
-
IMP:
acute on chronic systolic HFrEF 28%
MVD on cath 03/08
Ischemic cardiomyopathy
uncontrolled hypertension possibly renovascular-improved on Minoxidil
disseminated vascular disease
Recent acute hypoxic respiratory failure
HUEY on CKD 3B -cr 1.7-2, Dr Donald
Renal artery stenosis -treated with angioplasty in the past.
Infrarenal abdominal aortic aneurysm
Carotid stenosis s/p right CEA in the past.
Hyperlipidemia
significant orthostatic BP fluxes without symptoms
Patent RRA- Left RA not well visualized on Abd MRI
PLan:
A/to [facility] flash with pulm edema, low EF, HTN and acute reps failure on 03/05 here for [facility] today
noted MVD on cath 03/08, CT surgery consulted : decision pending
HUEY with CKD-cr reportedly at 2.1 today, baseline cr likely at 1.7-2 , urine output not recorded, weights up
Hemodynamically stable on hydralazine and carvedilol
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
volume status seem stable clinically, LVEDP of 12,currently off diuretics
he also noted to have MRA 03/07-but left RA not visualized well-will need records to review
follow labs daily
Reviewed CT surgery note he states that he will be taken for bypass surgery on March 15
d/w nursing
-
-
Date of Service: March 10, 2024
CC / HPI / ROS
-
Chief Complaint:
HUEY
History of Present Illness:
Creatinine improved to 2.1
Hemodynamically stable
Review of Systems:
No chest pain or shortness of breath
Subjectively nonoliguric
Labs
-
Labs:
WBC 11.4 10^3/uL (4.8-10.8) H 03/09/24 03:01
RBC 4.70 10^6/uL (4.70-6.10) 03/09/24 03:01
Hgb 13.5 g/dL (13.0-18.0) 03/09/24 03:01
Hct 39.1 % (39.0-52.0) 03/09/24 03:01
Plt Count 211 10^3/uL (130-400) 03/09/24 03:01
Sodium 139 mmol/L (135-145) 03/10/24 02:24
Potassium 4.6 mmol/L (3.5-5.1) 03/10/24 02:24
Chloride 104 mmol/L (98-107) 03/10/24 02:24
Carbon Dioxide 23 mmol/L (22-30) 03/10/24 02:24
BUN 49 mg/dl (9-20) H 03/10/24 02:24
Creatinine 2.1 mg/dL (0.7-1.3) H 03/10/24 02:24
eGFR 33.66 03/10/24 02:24
Glucose 88 mg/dl (70-99) 03/10/24 02:24
Calcium 9.5 mg/dl (8.4-10.2) 03/10/24 02:24
Trz-Y-Cgkmjrtfoqo Pept 2000 pg/ml 03/09/24 03:01
Albumin 3.8 g/dl (3.5-5.0) 03/09/24 03:01
Physical Exam
-
Vital Signs:
Vital Signs
Temp Pulse Resp BP Pulse Ox
97.9 F 50 20 127/78 97
03/10/24 08:11 03/10/24 08:52 03/10/24 08:11 03/10/24 08:52 03/10/24 08:11
Cardiovascular:: Regular rate and rhythm
Respiratory:: Bilateral: CTA
Lung Excursion:: Normal
Abdomen:: Nontender
Bowel Sounds:: Normal
Extremity Edema:: None: Bilateral:
Alanis Catheter: No
--- NOTE | 2024-03-10 14:14 | CM ---
Reviewed chart. Met with Mr. Ware to review discharge plans. He states prior to admission he resides alone in a mobile home with four steps to enter. He states prior to admission he was independent with ambulation and adls. He states he does
not have any DME in the home. He states he has a Roseline will do the shopping and will transport him when needed. He states his neighbor Nahid would be available if he needs anything. He also states Igor could also assist if needed. He states he does
not have a prescription plan and pays out of pocket for his medications. Medical work-up in progress. The discharge plan is to return home with [facility] when medically stable.
--- NOTE | 2024-03-10 14:14 | W.PN.CD ---
Today's Communication / Plan
-
Monitor BP with discontinuation of hydralazine and addition of doxazosin.
BP control is the walden to keeping him out of heart failure and pulmonary edema.
CABG evaluation continues.
Impression / Plan
-
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
failure with acute pulmonary edema and a new diagnosis of ischemic cardiomyopathy, transferred for repeat catheterization and subsequent CABG evaluation.
#CAD
-Acute on chronic.
-Coronary angiography re-confirms severe, multivessel disease.
-Continue aspirin, ezetimibe.
-Tentative plan for CABG on 03/15/2024 (clopidogrel washout).
#ICMO
-New diagnosis.
-Not currently in decompensated heart failure.
-GDMT is limited by renal function. He is currently on carvedilol, hydralazine and isosorbide mononitrate.
-He is currently beta blocked, but hydralazine is contraindicated in aortic dissection.
#Hypertension/Hypertensive crisis
-Acute on chronic, now controlled.
-Continue carvedilol, doxazosin and isosorbide mononitrate.
#Wolfgang Type B dissection/AAA
-Chronic.
-Involving the left renal artery.
-AAA = 3.0 cm on MRI from 03/04/2024.
-Try to get records from [facility].
#CKD3b/DORY
-Stable. GFR = 31.
-Remote renal artery stenosis s/p renal artery stent placement.
-Monitor with medication adjustments.
#HLD
-Chronic, stable.
-Total cholesterol = 169, LDL = 89, HDL = 49, Triglycerides = 158.
-Intolerance of atorvastatin.
-Continue ezetimibe 10 mg daily.
-Rechallenge with statin vs. PCSK9i.
-Goal LDL < 55, triglycerides < 150.
PCP: Veronica Sánchez NP
CDY: Micha Shelton MD
Subjective/Interval History:
Carvedilol held this morning (presumably for bradycardia).
Some hypertension this morning (160's).
Patient was hesitance about surgery yesterday (due to financial constraints), but he is much more interested now.
DATA:
2D ECHO 02/29/24:
Severely reduced LVSF, EF 28.9%, mod-severe CLVH
indeterminate LV diastolic dysfunction
Severely dilated LA, mod dilated RA
no hemodynamically sig valvular abnormalities
mild MR
Left heart catheterization 10/05/2020:
Assessment:
ANGIOGRAPHIC FINDINGS:
Normal LV size, normal wall motion,
Calculated EF: 65%
Coronary Angiography:
Dominance: Co-dominant
Left Main: Normal size, no disease.
Left Anterior Descending: moderate size with 50% proximal and 99% mid with distal vessel filing via left to left collaterals.
Ramus Branch: Large vessel giving off a good size tiffanie-lateral branch with 75% proximal stenosis and a large lateral branch with 65% proximal stenosis after the bifurcation.
Left Circumflex: Normal size co-dominant vessel. OM1 good size with 70% proximal stenosis. The mid and distal circumflex are good size and free of disease supplying 3 small to moderate LPL branches and collaterals to distal RCA.
Right Coronary: Moderate size co-dominant vessel with 60% ostial and 100% mid stenosis after RV marginal branch. The mid RCA gives off a small RV branch and the distal RCA is supplied by collaterals.
Physical Exam
Vital Signs/Labs
Vital Signs
Temp Pulse Resp BP Pulse Ox
37.1 C 52 20 148/89 98
03/10/24 11:20 03/10/24 12:45 03/10/24 11:20 03/10/24 12:45 03/10/24 11:20
03/09/24 03/10/24 03/11/24
11:59 11:59 11:59
Actual Weight 64.5 kg
03/09/24 03:01
03/10/24 02:24
Triglycerides 158 mg/dl (10-149) H 03/09/24 03:01
LDL Cholesterol, Calc 89 mg/dl 03/09/24 03:01
VLDL Cholesterol, Calc 31 mg/dl (0-30) H 03/09/24 03:01
HDL Cholesterol 49 mg/dl 03/09/24 03:01
03/09/24
03:
Yzg-O-Mcyylftswoo Pept 2000
Physical Exam
Constitutional: No acute distress and Comfortable
EENT: Anicteric and Moist mucous membranes
Cardiovascular: Rhythm & rate is regular, Pedal edema is absent, JVD pressure is normal, S1S2 is normal and Murmur/rub/gallop absent
Respiratory: Respiratory effort normal, Lungs clear to auscul., Wheeze Absent, Crackles Absent and Rhonchi Absent
GI: Soft, Distention absent, Flat, Non tender and Normal bowel sounds
Neuro/Psych: AO x 3
Data Reviewed
-
Date of Service: March 10, 2024
Medical Decision Making: Reviewed Test Results, Independent Historian Assessment and Test Interpretation
EKG: Tracing Personally Visualized and interpreted and Report Reviewed by me
Echo: Report Reviewed by me
X-Ray/CT/US/MRI/NUC/PET: Image Personally Visualized and interpreted and Report Reviewed by me
Medical Tests (PFT, Pathology etc): Image Personally Visualized and interpreted and Report Reviewed by me
Labs: Labs Reviewed by me
Old Records: Reviewed
--- NOTE | 2024-03-10 16:14 | W.PN.UPDATE ---
Update Note
Progress Note Update
Procedure Type:�Isolated CABG
PERIOPERATIVE OUTCOME ESTIMATE %
Operative Mortality 8.92%
Morbidity & Mortality 29.7%
Stroke 7.36%
Renal Failure 11.7%
Reoperation 6.33%
Prolonged Ventilation 15.5%
Deep Sternal Wound Infection 0.16%
Long Hospital Stay (>14 days) 17.5%
Short Hospital Stay (<6 days)* 20.7%
*higher values reflect a better outcome
Clinical Summary
Planned Surgery: Isolated CABG, Urgent, First cardiovascular surgery
Demographics: 68 year old, White, male, 64kg, 165cm, BMI: 23.5 kg/m�
Insurance/Payor: Medicare
Lab Values: Creatinine: 2.1 mg/dL, Hematocrit: 39.1%, WBC Count: 11.4 10�/�L, Platelet Count: 367673 cells/�L
Substance Abuse: Never smoker, Alcohol use: 2-7 drinks/week
Risk Factors / Comorbidities: Hypertension, Family Hx of CAD
Vascular RF: Cerebrovascular Disease: Other CVD, Peripheral Artery Disease, Prior Carotid Surgery, LT Carotid Sten. >=80%
Cardiac Status: Acute and chronic heart failure, Ejection Fraction = 20%
Coronary Artery Disease: 3 vessels diseased, Left Main Stenosis >=50%, Proximal LAD Stenosis >=70%, Other
[2024-03-10] MEDS: COREG 25 MG PO (18:49)
--- NOTE | 2024-03-10 19:22 | PTCARENOTE ---
Patients BP 197/99, notified Dr. Montes. Administered 8pm dose of Coreg as instructed. Report given to craft center director.
[2024-03-10] MEDS: APRESOLINE 10 MG IV (21:21)
--- NOTE | 2024-03-10 21:41 | PTCARENOTE ---
Pt BP continues to be elevated. 195/85. HR 55. Asymptomatic. Ephraim JACOME and Luis JOHNSON made aware and orders placed. 10mg IV Hydralazine ordered and administered. On re-evaluation BP 139/82.
[2024-03-11] VITALS (19 sets, daily range): BP systolic 86–208; BP diastolic 63–107; PULSE 50–56
[2024-03-11 03:22] LABS: Hematocrit 38.8 % (39.0-52.0); Hemoglobin 13.3 g/dL (13.0-18.0); Mean Corp Hgb Conc. 34.3 g/dL (33.0-37.0); Mean Corpuscular Hgb 27.8 pg (27.0-31.0); Mean Corpuscular Volume 81.2 fL (80.0-94.0); Mean Platelet Volume 11.5 fL (7.4-10.4); Platelet Count 239 10^3/uL (130-400); Red Blood Cell Count 4.78 10^6/uL (4.70-6.10); White Blood Cell Count 10.3 10^3/uL (4.8-10.8)
[2024-03-11 03:30] LABS: INR 1.06; PT 13.9 Sec (11.4-14.6)
[2024-03-11 03:31] LABS: APTT 31.5 Sec (23.4-35.0)
[2024-03-11 04:21] LABS: ALT (SGPT) 29 U/L (0-50); AST (SGOT) 35 U/L (17-59); Albumin 3.9 g/dl (3.5-5.0); Alkaline Phosphatase 90 U/L (38-126); Blood Urea Nitrogen 45 mg/dl (9-20); Calcium 9.5 mg/dl (8.4-10.2); Carbon Dioxide 21 mmol/L (22-30); Chloride 104 mmol/L (98-107); Direct Bilirubin 0.2 mg/dl (0.0-0.4); Estimated Creatinine Clearance 31 ml/min; Glucose 97 mg/dl (70-99); Potassium 4.7 mmol/L (3.5-5.1); Sodium 139 mmol/L (135-145); Total Bilirubin 0.6 mg/dl (0.2-1.3); Total Protein 6.6 g/dl (6.3-8.2); eGFR 35.68
[2024-03-11] MEDS: APRESOLINE 10 MG IV ×2 (06:36→19:10)
--- NOTE | 2024-03-11 08:26 | PTCARENOTE ---
Received patient at change of shift. SB on the monitor, VSS. 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 Discussed plan of care with pt, pt verbalizes understanding. No complaints from pt at this time, call cm within reach.
[2024-03-11 08:50] LABS: Glycohemoglobin (HgbA1c) 5.7 % (4.0-5.6)
[2024-03-11] MEDS: CARDURA 1 MG PO (09:13)
[2024-03-11] MEDS: ZETIA 10 MG PO (09:14)
[2024-03-11] MEDS: COREG 25 MG PO ×2 (09:14→19:46)
[2024-03-11] MEDS: LOW STRENGTH ASPIRIN 81 MG PO (09:14)
[2024-03-11] MEDS: IMDUR (EXTENDED RELEASE) 120 MG PO (09:14)
--- NOTE | 2024-03-11 12:31 | CM ---
Reviewed chart. Met with Mr. Alas to review discharge plans. Prior to admission he resides alone in a one story mobile home with four steps to enter. Prior to admission he was independent with ambulation and adls. He does not have any DME in
the home. He states he has several friends who he can call to assist him if needed. He does not have a prescription plan and pays out of pocket for his medications. Medical work-up in progress. The discharge plan is to return home with support
from friends and a home visit by the Cardiothoracic Transitional Care Nurse when medically stable.
We reviewed pre-op and post-op routines. Briefly reviewed the shower instructions. Gave him the Cardiothoracic Surgery Educational Booklet. We also reviewed restrictions including sternal precautions and driving restrictions. We discussed a home
visit by the Cardiothoracic Transitional Care Nurse. He is agreeable to a home visit. The plan is for CABG on March
--- NOTE | 2024-03-11 13:23 | W.PN.HOSP.TC ---
Today's Communication/Plan
-
Continue current care
Assessment / Plan
Assessment / Plan
Gen-AAOx3, NAD
HEENT-NC, AT, anicteric, clear oral mm
Neck-supple
CV-reg, no M, +S1/S2
Lungs-clear B/L
Abd-soft, NT, ND
Ext-no edema
Musculoskeletal-no cyanosis, clubbing
Skin-warm and dry
Neuro-grossly non-focal
Psych-calm, cooperative
Recent acute hypoxic respiratory failure - admitted to [facility] February 28. Diagnosed with hypertensive emergency on admission. Required BiPAP therapy and treatment of CHF. Oxygenation currently normal on room air, 98%.
Three-vessel coronary artery disease -admit to IVU. Cardiac catheterization results noted. CT surgery plans on revascularization on Thursday.
Essential hypertension -hypotension resolved. Antihypertensives ordered with hold parameters. Not orthostatic.
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 Unclear if he had angioplasty of the right renal artery, patient does not know anything about this.
Cardiology managing the high blood pressure. Started on doxazosin 1 mg daily. Continue carvedilol and isosorbide mononitrate. Oral hydralazine and minoxidil discontinued.
I favor avoiding intravenous antihypertensives given erratic blood pressure fluctuations associated with them.
HUEY on CKD 3B -admitted to [facility] last week with HUEY. Monitor for any contrast-induced nephropathy. IV fluids ordered. Creatinine 2.0, appears to be at baseline. Nephrology following.
Renal artery stenosis -treated with angioplasty in the past.
Infrarenal abdominal aortic aneurysm
Carotid stenosis -underwent right CEA in the past.
Hyperlipidemia
Full code
Anticipated Discharge: > 48 hours
Subjective/Interval History
-
Date of Service: March 11, 2024
Patient seen and examined. No complaints.
Objective Data
-
Labs:
Laboratory Results
03/11/24
03:11
WBC 10.3
Hgb 13.3
Hct 38.8 L
Plt Count 239
PT 13.9
INR 1.06
APTT 31.5
Sodium 139
Potassium 4.7
Chloride 104
Carbon Dioxide 21 L
BUN 45 H
Creatinine 2.0 H
Glucose 97
Calcium 9.5
Total Bilirubin 0.6
AST 35
ALT 29
Alkaline Phosphatase 90
Vital Signs:
Vital Signs
Temp Pulse Resp BP Pulse Ox
97.8 F 55 18 138/79 97
03/11/24 11:39 03/11/24 09:13 03/11/24 11:39 03/11/24 09:13 03/11/24 11:39
I&O
03/10/24 03/11/24 03/12/24
06:59 06:59 06:59
Intake Total 960 / 960 400 / 400
Output Total 450 / 450 850 / 850
Balance 510 / 510 -450 / -450
Review of Systems
-
History Source: Patient
All other systems: Reviewed and negative
--- NOTE | 2024-03-11 15:20 | W.PN.CD ---
Today's Communication / Plan
-
Continue hydralazine for GDMT and BP control.
CABG evaluation/clopidogrel washout continues.
Impression / Plan
-
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
failure with acute pulmonary edema and a new diagnosis of ischemic cardiomyopathy, transferred for repeat catheterization and subsequent CABG evaluation.
#CAD
-Acute on chronic.
-Coronary angiography re-confirms severe, multivessel disease.
-Continue aspirin, ezetimibe.
-Tentative plan for CABG on 03/15/2024 (clopidogrel washout).
#ICMO
-New diagnosis.
-Not currently in decompensated heart failure.
-GDMT is limited by renal function. He is currently on carvedilol, doxazosin and isosorbide mononitrate.
-In light of clarification of vascular disease, it is reasonable to restart hydralazine for GDMT and for BP control.
#Hypertension/Hypertensive crisis
-Acute on chronic, now controlled.
-Continue carvedilol, doxazosin and isosorbide mononitrate.
-Hydralazine restarted.
#AAA/Focal dissection
-Chronic.
-Records from [facility] reviewed.
-Involving the left renal artery.
-AAA = 3.0 cm on MRI from 03/04/2024 with focal dissection, medically managed.
-Try to get records from [facility].
#CKD3b/DORY
-Stable. GFR = 31.
-Remote renal artery stenosis s/p renal artery stent placement.
-Monitor with medication adjustments.
#HLD
-Chronic, stable.
-Total cholesterol = 169, LDL = 89, HDL = 49, Triglycerides = 158.
-Intolerance of atorvastatin.
-Continue ezetimibe 10 mg daily.
-Rechallenge with statin vs. PCSK9i.
-Goal LDL < 55, triglycerides < 150.
PCP: Veronica Sánchez NP
CDY: Micha Shelton MD
Subjective/Interval History:
We were able to obtain the patient's records from [facility].
Abdominal MRI/MRA shows 3 cm AAA with focal dissection, not a large type B dissection as had previously been believed.
The patient was hypertensive overnight.
Carvedilol hold parameters were adjusted (ok to give for HR > 40) and hydralazine was restarted with good effect.
The patient feels well.
DATA:
2D ECHO 02/29/24:
Severely reduced LVSF, EF 28.9%, mod-severe CLVH
indeterminate LV diastolic dysfunction
Severely dilated LA, mod dilated RA
no hemodynamically sig valvular abnormalities
mild MR
Left heart catheterization 10/05/2020:
Assessment:
ANGIOGRAPHIC FINDINGS:
Normal LV size, normal wall motion,
Calculated EF: 65%
Coronary Angiography:
Dominance: Co-dominant
Left Main: Normal size, no disease.
Left Anterior Descending: moderate size with 50% proximal and 99% mid with distal vessel filing via left to left collaterals.
Ramus Branch: Large vessel giving off a good size tiffanie-lateral branch with 75% proximal stenosis and a large lateral branch with 65% proximal stenosis after the bifurcation.
Left Circumflex: Normal size co-dominant vessel. OM1 good size with 70% proximal stenosis. The mid and distal circumflex are good size and free of disease supplying 3 small to moderate LPL branches and collaterals to distal RCA.
Right Coronary: Moderate size co-dominant vessel with 60% ostial and 100% mid stenosis after RV marginal branch. The mid RCA gives off a small RV branch and the distal RCA is supplied by collaterals.
Physical Exam
Vital Signs/Labs
Vital Signs
Temp Pulse Resp BP Pulse Ox
36.6 C 55 18 138/79 97
03/11/24 11:39 03/11/24 09:13 03/11/24 11:39 03/11/24 09:13 03/11/24 11:39
03/11/24 03:11
03/11/24 03:11
PT 13.9 Sec (11.4-14.6) 03/11/24 03:11
INR 1.06 03/11/24 03:11
APTT 31.5 Sec (23.4-35.0) 03/11/24 03:11
Triglycerides 158 mg/dl (10-149) H 03/09/24 03:01
LDL Cholesterol, Calc 89 mg/dl 03/09/24 03:01
VLDL Cholesterol, Calc 31 mg/dl (0-30) H 03/09/24 03:01
HDL Cholesterol 49 mg/dl 03/09/24 03:01
03/09/24
03:01
Xjc-B-Nbfnuobwcjc Pept 2000
Physical Exam
Constitutional: No acute distress and Comfortable
EENT: Anicteric and Moist mucous membranes
Cardiovascular: Rhythm & rate is regular, Pedal edema is absent, JVD pressure is normal, S1S2 is normal and Murmur/rub/gallop absent
Respiratory: Respiratory effort normal, Lungs clear to auscul., Wheeze Absent, Crackles Absent and Rhonchi Absent
GI: Soft, Distention absent, Flat, Non tender and Normal bowel sounds
Neuro/Psych: AO x 3
Data Reviewed
-
Date of Service: March 11, 2024
Medical Decision Making: Reviewed Test Results, Independent Historian Assessment and Test Interpretation
EKG: Tracing Personally Visualized and interpreted and Report Reviewed by me
Echo: Tracing Personally Visualized and interpreted and Report Reviewed by me
X-Ray/CT/US/MRI/NUC/PET: Image Personally Visualized and interpreted and Report Reviewed by me
Medical Tests (PFT, Pathology etc): Image Personally Visualized and interpreted and Report Reviewed by me
Labs: Labs Reviewed by me
Old Records: Reviewed
--- NOTE | 2024-03-11 17:48 | W.PN.NEPH.PH ---
Today's Communication / Plan
-
follow labs
Assessment/Plan
-
IMP:
acute on chronic systolic HFrEF 28%
MVD on cath 03/08
Ischemic cardiomyopathy
uncontrolled hypertension possibly renovascular-improved on Minoxidil
disseminated vascular disease
Recent acute hypoxic respiratory failure
HUEY on CKD 3B -cr 1.7-2, Dr Donald
Renal artery stenosis -treated with angioplasty in the past.
Infrarenal abdominal aortic aneurysm
Carotid stenosis s/p right CEA in the past.
Hyperlipidemia
significant orthostatic BP fluxes without symptoms
Patent RRA- Left RA not well visualized on Abd MRI
PLan:
A/to [facility] flash with pulm edema, low EF, HTN and acute reps failure on 03/05 here for [facility]
noted MVD on cath 03/08, CT surgery consulted : CABG next week 03/15
HUEY with CKD-cr reportedly at 2.1 today, baseline cr likely at 1.7-2
Hemodynamically stable on hydralazine and carvedilol
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
volume status seem stable clinically, LVEDP of 12,currently off diuretics
he also noted to have MRA 03/07-but left RA not visualized well-will need records to review
follow labs daily
d/w pt
-
-
Date of Service: March 11, 2024
CC / HPI / ROS
-
Chief Complaint:
HUEY
History of Present Illness:
Creatinine improved to 2.
Hemodynamically stable
bicarb 21
Review of Systems:
No chest pain or shortness of breath
Subjectively nonoliguric
Labs
-
Labs:
WBC 10.3 10^3/uL (4.8-10.8) 03/11/24 03:11
RBC 4.78 10^6/uL (4.70-6.10) 03/11/24 03:11
Hgb 13.3 g/dL (13.0-18.0) 03/11/24 03:11
Hct 38.8 % (39.0-52.0) L 03/11/24 03:11
Plt Count 239 10^3/uL (130-400) 03/11/24 03:11
Sodium 139 mmol/L (135-145) 03/11/24 03:11
Potassium 4.7 mmol/L (3.5-5.1) 03/11/24 03:11
Chloride 104 mmol/L (98-107) 03/11/24 03:11
Carbon Dioxide 21 mmol/L (22-30) L 03/11/24 03:11
BUN 45 mg/dl (9-20) H 03/11/24 03:11
Creatinine 2.0 mg/dL (0.7-1.3) H 03/11/24 03:11
eGFR 35.68 03/11/24 03:11
Glucose 97 mg/dl (70-99) 03/11/24 03:11
Calcium 9.5 mg/dl (8.4-10.2) 03/11/24 03:11
Zmt-W-Sqrjqbrprdd Pept 2000 pg/ml 03/09/24 03:01
Albumin 3.9 g/dl (3.5-5.0) 03/11/24 03:11
Physical Exam
-
Vital Signs:
Vital Signs
Temp Pulse Resp BP Pulse Ox
98.2 F 56 16 134/80 97
03/11/24 15:26 03/11/24 15:26 03/11/24 15:26 03/11/24 15:26 03/11/24 15:26
Cardiovascular:: Regular rate and rhythm
Respiratory:: Bilateral: CTA
Lung Excursion:: Normal
Abdomen:: Nontender and Soft
Extremity Edema:: None: Bilateral:
Alanis Catheter: No
--- NOTE | 2024-03-11 20:42 | PTCARENOTE ---
Pt. received at change of shift. Pt. seen and assessed in room. Pt. AOx3 and very pleasant. BP originally taken on right arm SBP 200, retaken on left arm SBP 196. 10mg hydralazine administered via IV. Repeat BP 30 minutes later reading BP 174/95,
coreg 25mg administered. BP to be retaken with 11pm VS. Pt. has no complaints at this time stating he feels 'normal'. Tele reading sinus maggy/NSR in the 50s-60s. Plan of care explained to pt.. Pt. verbalizes understanding. Call cm within reach.
Continuing to monitor at this time.
--- NOTE | 2024-03-11 23:34 | PTCARENOTE ---
Repeat BP after PRN hydralazine and scheduled coreg was 131/72. Pt. has no complaints at this time. Continuing to monitor the pt.
[2024-03-12] VITALS (11 sets, daily range): BP systolic 104–195; BP diastolic 70–112; PULSE 55–59
[2024-03-12] MEDS: ZETIA 10 MG PO (07:35)
[2024-03-12] MEDS: IMDUR (EXTENDED RELEASE) 120 MG PO (07:35)
[2024-03-12] MEDS: LOW STRENGTH ASPIRIN 81 MG PO (07:35)
[2024-03-12] MEDS: COREG 25 MG PO ×2 (07:35→19:54)
[2024-03-12] MEDS: CARDURA 1 MG PO (07:35)
--- NOTE | 2024-03-12 09:24 | W.PN.HOSP.TC ---
Today's Communication/Plan
-
Continue current care
Assessment / Plan
Assessment / Plan
Gen-AAOx3, NAD
HEENT-NC, AT, anicteric, clear oral mm
Neck-supple
CV-reg, no M, +S1/S2
Lungs-clear B/L
Abd-soft, NT, ND
Ext-no edema
Musculoskeletal-no cyanosis, clubbing
Skin-warm and dry
Neuro-grossly non-focal
Psych-calm, cooperative
Recent acute hypoxic respiratory failure - admitted to [facility] February 28. Diagnosed with hypertensive emergency on admission. Required BiPAP therapy and treatment of CHF. Oxygenation currently normal on room air, 98%.
Three-vessel coronary artery disease -admit to IVU. Cardiac catheterization results noted. CT surgery plans on revascularization on Thursday.
Essential hypertension -hypotension resolved. Antihypertensives ordered with hold parameters. Not orthostatic. Pressures now running high. 172/96 this morning.
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 Unclear if he had angioplasty of the right renal artery, patient does not know anything about this.
Cardiology managing the high blood pressure. Started on doxazosin 1 mg daily. Continue carvedilol and isosorbide mononitrate. Oral hydralazine and minoxidil discontinued.
I favor avoiding intravenous antihypertensives given erratic blood pressure fluctuations associated with them. Recommend increasing dose of doxazosin if okay with cardiology. Alternatively can resume oral hydralazine.
HUEY on CKD 3B -admitted to [facility] last week with HUEY. Monitor for any contrast-induced nephropathy. IV fluids ordered. Creatinine 2.0, appears to be at baseline. Nephrology following.
Renal artery stenosis -treated with angioplasty in the past.
Infrarenal abdominal aortic aneurysm
Carotid stenosis -underwent right CEA in the past.
Hyperlipidemia
Full code
Anticipated Discharge: > 48 hours
Subjective/Interval History
-
Date of Service: March 12, 2024
Patient seen and examined. No complaints.
Objective Data
-
Vital Signs:
Vital Signs
Temp Pulse Resp BP Pulse Ox
98.1 F 54 18 172/96 96
03/12/24 07:34 03/12/24 07:35 03/12/24 07:34 03/12/24 07:35 03/12/24 07:34
I&O
03/11/24 03/12/24 03/13/24
06:59 06:59 06:59
Intake Total 400 / 400
Output Total 850 / 850
Balance -450 / -450
Review of Systems
-
History Source: Patient
All other systems: Reviewed and negative
--- NOTE | 2024-03-12 11:23 | W.PN.CD ---
Today's Communication / Plan
-
add hydralazine
CABG planning for next week
Impression / Plan
-
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
failure with acute pulmonary edema and a new diagnosis of ischemic cardiomyopathy, transferred for repeat catheterization and subsequent CABG evaluation.
#CAD
-Coronary angiography re-confirms severe, multivessel disease.
-Continue aspirin, ezetimibe.
-Tentative plan for CABG on 03/15/2024 (clopidogrel washout).
#ICMO, EF 25-30%
-New diagnosis.
-Not currently in decompensated heart failure.
-GDMT is limited by renal function. He is currently on carvedilol, isosorbide mononitrate, hydralazine
#Hypertension/Hypertensive crisis
-Acute on chronic, now controlled.
-Continue carvedilol, doxazosin and isosorbide mononitrate.
-Hydralazine restarted.
#AAA/Focal dissection
-Chronic.
-Records from [facility] reviewed.
-Involving the left renal artery.
-AAA = 3.0 cm on MRI from 03/04/2024 with focal dissection, medically managed.
#CKD3b/DORY
-Stable. GFR = 30-35.
-Remote renal artery stenosis s/p renal artery stent placement.
-Monitor with medication adjustments.
#HLD
-Chronic, stable.
-Total cholesterol = 169, LDL = 89, HDL = 49, Triglycerides = 158.
-Intolerance of atorvastatin.
-Continue ezetimibe 10 mg daily.
-Rechallenge with statin vs. PCSK9i as outpatient
-Goal LDL < 55, triglycerides < 150.
PCP: Veronica Sánchez NP
CDY: Micha Shelton MD
Subjective/Interval History:
no chest pain
DATA:
2D ECHO 02/29/24:
Severely reduced LVSF, EF 28.9%, mod-severe CLVH
indeterminate LV diastolic dysfunction
Severely dilated LA, mod dilated RA
no hemodynamically sig valvular abnormalities
mild MR
Left heart catheterization 10/05/2020:
Assessment:
ANGIOGRAPHIC FINDINGS:
Normal LV size, normal wall motion,
Calculated EF: 65%
Coronary Angiography:
Dominance: Co-dominant
Left Main: Normal size, no disease.
Left Anterior Descending: moderate size with 50% proximal and 99% mid with distal vessel filing via left to left collaterals.
Ramus Branch: Large vessel giving off a good size tiffanie-lateral branch with 75% proximal stenosis and a large lateral branch with 65% proximal stenosis after the bifurcation.
Left Circumflex: Normal size co-dominant vessel. OM1 good size with 70% proximal stenosis. The mid and distal circumflex are good size and free of disease supplying 3 small to moderate LPL branches and collaterals to distal RCA.
Right Coronary: Moderate size co-dominant vessel with 60% ostial and 100% mid stenosis after RV marginal branch. The mid RCA gives off a small RV branch and the distal RCA is supplied by collaterals.
Physical Exam
Vital Signs/Labs
Vital Signs
Temp Pulse Resp BP Pulse Ox
98.2 F 53 18 114/70 96
03/12/24 10:50 03/12/24 10:47 03/12/24 10:50 03/12/24 10:47 03/12/24 10:50
03/11/24 03:11
03/11/24 03:11
PT 13.9 Sec (11.4-14.6) 03/11/24 03:11
INR 1.06 03/11/24 03:11
APTT 31.5 Sec (23.4-35.0) 03/11/24 03:11
Triglycerides 158 mg/dl (10-149) H 03/09/24 03:01
LDL Cholesterol, Calc 89 mg/dl 03/09/24 03:01
VLDL Cholesterol, Calc 31 mg/dl (0-30) H 03/09/24 03:01
HDL Cholesterol 49 mg/dl 03/09/24 03:01
03/09/24
03:01
Beg-Y-Nresnljdtag Pept 1999
Physical Exam
Constitutional: No acute distress and Comfortable
EENT: Moist mucous membranes
Cardiovascular: Rhythm & rate is regular, Pedal edema is absent, JVD pressure is normal and Systolic murmur absent
Respiratory: Respiratory effort normal and Lungs clear to auscul.
Neuro/Psych: AO x 3
Data Reviewed
-
Date of Service: March 12, 2024
EKG: Other (Tele: SR/SB 50s-60s)
--- NOTE | 2024-03-12 12:55 | W.PN.NEPH.PH ---
Today's Communication / Plan
-
follow labs
Assessment/Plan
-
IMP:
acute on chronic systolic HFrEF 28%
MVD on cath 03/08
Ischemic cardiomyopathy
uncontrolled hypertension possibly renovascular-improved on Minoxidil
disseminated vascular disease
Recent acute hypoxic respiratory failure
HUEY on CKD 3B -cr 1.7-2, Dr Donald
Renal artery stenosis -treated with angioplasty in the past.
Infrarenal abdominal aortic aneurysm
Carotid stenosis s/p right CEA in the past.
Hyperlipidemia
significant orthostatic BP fluxes without symptoms
Patent RRA- Left RA not well visualized on Abd MRI
PLan:
A/to [facility] flash with pulm edema, low EF, HTN and acute reps failure on 03/05 here for [facility]
noted MVD on cath 03/08, CT surgery consulted : CABG next week 03/15
HUEY with CKD-cr reportedly at 2.1 on 03/11, baseline cr likely at 1.7-2
Hemodynamically stable on hydralazine, cardura, carvedilol and large dose of Imdur per cards
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
volume status seem stable clinically, LVEDP of 12,remain off diuretics
he also noted to have MRA 03/07-but left RA not visualized well-will need records to review
follow labs daily
d/w pt
-
-
Date of Service: March 12, 2024
CC / HPI / ROS
-
Chief Complaint:
HUEY
History of Present Illness:
Creatinine improved to 2., no labs today
Hemodynamically stable
no fever
Review of Systems:
No chest pain or shortness of breath
Subjectively nonoliguric
mild dizziness late this am after breakfast but resolve dnow
Labs
-
Labs:
WBC 10.3 10^3/uL (4.8-10.8) 03/11/24 03:11
RBC 4.78 10^6/uL (4.70-6.10) 03/11/24 03:11
Hgb 13.3 g/dL (13.0-18.0) 03/11/24 03:11
Hct 38.8 % (39.0-52.0) L 03/11/24 03:11
Plt Count 239 10^3/uL (130-400) 03/11/24 03:11
Sodium 139 mmol/L (135-145) 03/11/24 03:11
Potassium 4.7 mmol/L (3.5-5.1) 03/11/24 03:11
Chloride 104 mmol/L (98-107) 03/11/24 03:11
Carbon Dioxide 21 mmol/L (22-30) L 03/11/24 03:11
BUN 45 mg/dl (9-20) H 03/11/24 03:11
Creatinine 2.0 mg/dL (0.7-1.3) H 03/11/24 03:11
eGFR 35.68 03/11/24 03:11
Glucose 97 mg/dl (70-99) 03/11/24 03:11
Calcium 9.5 mg/dl (8.4-10.2) 03/11/24 03:11
Mtk-D-Gdlmmosvamk Pept 2000 pg/ml 03/09/24 03:01
Albumin 3.9 g/dl (3.5-5.0) 03/11/24 03:11
Physical Exam
-
Vital Signs:
Vital Signs
Temp Pulse Resp BP Pulse Ox
98.2 F 53 18 114/70 96
03/12/24 10:50 03/12/24 10:47 03/12/24 10:50 03/12/24 10:47 03/12/24 10:50
Cardiovascular:: Regular rate and rhythm
Respiratory:: Bilateral: CTA
Lung Excursion:: Normal
Abdomen:: Nontender and Soft
Extremity Edema:: None: Bilateral:
Alanis Catheter: No
--- NOTE | 2024-03-12 14:22 | PTCARENOTE ---
Received patient at shift change. SB on the monitor. Pt ambulating in the hallway with no complaints at this time. Pt educated on plan of care, pt verbalizes understanding. Call cm within reach.
[2024-03-12] MEDS: APRESOLINE 10 MG PO ×2 (17:04→22:32)
--- NOTE | 2024-03-12 19:03 | PTCARENOTE ---
pt continues to be sr on the monitor, hr in the 60s, vss. pt offers no complaints at this time. pt educated on plan of care and pt verbalized understanding. call cm within reach.
[2024-03-13] VITALS (13 sets, daily range): BP systolic 89–192; BP diastolic 55–102; PULSE 51–58
--- NOTE | 2024-03-13 00:35 | PTCARENOTE ---
Pt.'s BP continues to run high, 195/112 at 1946 then 171/101 post 1999 Coreg. Hydralazine PO given at 2232, BP re-checked at 0006 resulting 180/91. Pt. is asymptomatic, sleeping. Hospitalist CANDI Ma notified, advised to wait until 0130,
recheck, and administer PRN hydralazine if SBP 160. Otherwise pt. has no complaints of any CP or SOB, independent and ambulatory in room. Sinus maggy in the 50's.
[2024-03-13] MEDS: APRESOLINE 10 MG IV (01:36)
[2024-03-13 03:06] LABS: Blood Urea Nitrogen 47 mg/dl (9-20); Calcium 9.6 mg/dl (8.4-10.2); Carbon Dioxide 26 mmol/L (22-30); Chloride 104 mmol/L (98-107); Estimated Creatinine Clearance 29 ml/min; Glucose 92 mg/dl (70-99); Potassium 4.6 mmol/L (3.5-5.1); Sodium 141 mmol/L (135-145); eGFR 33.66
[2024-03-13] MEDS: ZETIA 10 MG PO (07:24)
[2024-03-13] MEDS: CARDURA 1 MG PO (07:25)
[2024-03-13] MEDS: COREG 25 MG PO ×2 (07:25→19:20)
[2024-03-13] MEDS: IMDUR (EXTENDED RELEASE) 120 MG PO (07:25)
[2024-03-13] MEDS: APRESOLINE 10 MG PO ×3 (07:25→22:34)
[2024-03-13] MEDS: LOW STRENGTH ASPIRIN 81 MG PO (07:26)
--- NOTE | 2024-03-13 08:45 | W.PN.HOSP.TC ---
Today's Communication/Plan
-
Compression stockings
Assessment / Plan
Assessment / Plan
Gen-AAOx3, NAD
HEENT-NC, AT, anicteric, clear oral mm
Neck-supple
CV-reg, no M, +S1/S2
Lungs-clear B/L
Abd-soft, NT, ND
Ext-no edema
Musculoskeletal-no cyanosis, clubbing
Skin-warm and dry
Neuro-grossly non-focal
Psych-calm, cooperative
Orthostatic hypotension -somewhat symptomatic. Suspect addition of hydralazine as a contributing factor. Coreg and doxazosin can also contribute. Supine blood pressure 127/70, pulse 51 this morning, standing blood pressure 89/58, pulse 58. Will
order compression stockings. Discussed findings with cardiology, Dr. Lo. He will address today.
Recent acute hypoxic respiratory failure - admitted to [facility] February 28. Diagnosed with hypertensive emergency on admission. Required BiPAP therapy and treatment of CHF. Oxygenation currently normal on room air, 98%.
Three-vessel coronary artery disease -admit to IVU. Cardiac catheterization results noted. CT surgery plans on revascularization on Thursday.
Essential hypertension -hypotension resolved. Antihypertensives ordered with hold parameters.
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 Unclear if he had angioplasty of the right renal artery, patient does not know anything about this.
Cardiology managing the high blood pressure.
HUEY on CKD 3B -admitted to [facility] last week with HUEY. Monitor for any contrast-induced nephropathy. IV fluids ordered. Creatinine stable.
Renal artery stenosis -treated with angioplasty in the past.
Infrarenal abdominal aortic aneurysm
Carotid stenosis -underwent right CEA in the past.
Hyperlipidemia
Full code
Anticipated Discharge: > 48 hours
Subjective/Interval History
-
Date of Service: March 13, 2024
Patient seen and examined. Denies lightheadedness or dizziness with standing. Does feel transient visual fuzziness.
Objective Data
-
Labs:
Laboratory Results
03/13/24
02:44
Sodium 141
Potassium 4.6
Chloride 104
Carbon Dioxide 26
BUN 47 H
Creatinine 2.1 H
Glucose 92
Calcium 9.6
Vital Signs:
Vital Signs
Temp Pulse Resp BP Pulse Ox
98.4 F 51 20 145/91 97
03/13/24 08:26 03/13/24 07:25 03/13/24 08:26 03/13/24 07:25 03/13/24 08:26
Review of Systems
-
History Source: Patient
All other systems: Reviewed and negative
--- NOTE | 2024-03-13 11:51 | W.PN.NEPH.PH ---
Addendum entered and electronically signed by Mignon Pabon MD 03/13/24 14:31:
Reviewed MRI reports done on 03/08 t [facility] show no DORY, note; left renal art poorly visualized though with patent proximal art
Original Note:
Today's Communication / Plan
-
follow labs
meds adjustment per cards for orthostatic BPs
Assessment/Plan
-
IMP:
acute on chronic systolic HFrEF 28%
MVD on cath 03/08
Ischemic cardiomyopathy
uncontrolled hypertension possibly renovascular-improved on Minoxidil
disseminated vascular disease
Recent acute hypoxic respiratory failure
HUEY on CKD 3B -cr 1.7-2, Dr Donald
Renal artery stenosis -treated with angioplasty in the past.
Infrarenal abdominal aortic aneurysm
Carotid stenosis s/p right CEA in the past.
Hyperlipidemia
significant orthostatic BP fluxes without symptoms
Patent RRA- Left RA not well visualized on Abd MRI
PLan:
A/to [facility] flash with pulm edema, low EF, HTN and acute reps failure on 03/05 here for [facility]
noted MVD on cath 03/08, CT surgery consulted : CABG next week 03/15
HUEY with CKD-cr stable at 2.1 , baseline cr likely at 1.7-2
Hemodynamically stable on hydralazine, cardura, carvedilol and large dose of Imdur per cards
seem to have positive orthostatic vitals, may need hold on cardura
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
volume status seem stable clinically, LVEDP of 12,remain off diuretics
he also noted to have MRA 03/07-but left RA not visualized well-will need records to review
follow labs daily
d/w pt
-
-
Date of Service: March 13, 2024
CC / HPI / ROS
-
Chief Complaint:
HUEY
History of Present Illness:
Creatinine improved to 2.1
Hemodynamically stable
no fever
orthostatic vitals +ve this am
Review of Systems:
No chest pain or shortness of breath
Subjectively nonoliguric
Labs
-
Labs:
WBC 10.3 10^3/uL (4.8-10.8) 03/11/24 03:11
RBC 4.78 10^6/uL (4.70-6.10) 03/11/24 03:11
Hgb 13.3 g/dL (13.0-18.0) 03/11/24 03:11
Hct 38.8 % (39.0-52.0) L 03/11/24 03:11
Plt Count 239 10^3/uL (130-400) 03/11/24 03:11
Sodium 141 mmol/L (135-145) 03/13/24 02:44
Potassium 4.6 mmol/L (3.5-5.1) 03/13/24 02:44
Chloride 104 mmol/L (98-107) 03/13/24 02:44
Carbon Dioxide 26 mmol/L (22-30) 03/13/24 02:44
BUN 47 mg/dl (9-20) H 03/13/24 02:44
Creatinine 2.1 mg/dL (0.7-1.3) H 03/13/24 02:44
eGFR 33.66 03/13/24 02:44
Glucose 92 mg/dl (70-99) 03/13/24 02:44
Calcium 9.6 mg/dl (8.4-10.2) 03/13/24 02:44
Otz-V-Tvonflhujyt Pept 2000 pg/ml 03/09/24 03:01
Albumin 3.9 g/dl (3.5-5.0) 03/11/24 03:11
Physical Exam
-
Vital Signs:
Vital Signs
Temp Pulse Resp BP Pulse Ox
98.4 F 51 20 145/91 97
03/13/24 08:26 03/13/24 07:25 03/13/24 08:26 03/13/24 07:25 03/13/24 08:26
Cardiovascular:: Regular rate and rhythm
Respiratory:: Bilateral: CTA
Lung Excursion:: Normal
Abdomen:: Nontender and Soft
Extremity Edema:: None: Bilateral:
Alanis Catheter: No
--- NOTE | 2024-03-13 12:14 | W.PN.CD ---
Today's Communication / Plan
-
will start with compression stockings and orthostatic precautions before any med changes
CABG evaluation
Impression / Plan
-
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
failure with acute pulmonary edema and a new diagnosis of ischemic cardiomyopathy, transferred for repeat catheterization and subsequent CABG evaluation.
# Orthostatic hypotension
-sxs are minimal, and BP has been significantly elevated at other times
-will start with compression stockings and orthostatic precautions before any med changes
#CAD
-Coronary angiography re-confirms severe, multivessel disease.
-Continue aspirin, ezetimibe.
-Tentative plan for CABG on 03/15/2024 (clopidogrel washout).
#ICMO, EF 25-30%
-New diagnosis.
-Not currently in decompensated heart failure.
-GDMT is limited by renal function. He is currently on carvedilol, isosorbide mononitrate, hydralazine
#Hypertension/Hypertensive crisis
-Acute on chronic, now controlled.
-Continue carvedilol, doxazosin and isosorbide mononitrate.
-Hydralazine restarted.
#AAA/Focal dissection
-Chronic.
-Records from [facility] reviewed.
-Involving the left renal artery.
-AAA = 3.0 cm on MRI from 03/04/2024 with focal dissection, medically managed.
#CKD3b/DORY
-Stable. GFR = 30-35.
-Remote renal artery stenosis s/p renal artery stent placement.
-Monitor with medication adjustments.
#HLD
-Chronic, stable.
-Total cholesterol = 169, LDL = 89, HDL = 49, Triglycerides = 158.
-Intolerance of atorvastatin.
-Continue ezetimibe 10 mg daily.
-Rechallenge with statin vs. PCSK9i as outpatient
-Goal LDL < 55, triglycerides < 150.
PCP: Veronica Sánchez NP
CDY: Micha Shelton MD
Subjective/Interval History:
no chest pain
DATA:
2D ECHO 02/29/24:
Severely reduced LVSF, EF 28.9%, mod-severe CLVH
indeterminate LV diastolic dysfunction
Severely dilated LA, mod dilated RA
no hemodynamically sig valvular abnormalities
mild MR
Left heart catheterization 10/05/2020:
Assessment:
ANGIOGRAPHIC FINDINGS:
Normal LV size, normal wall motion,
Calculated EF: 65%
Coronary Angiography:
Dominance: Co-dominant
Left Main: Normal size, no disease.
Left Anterior Descending: moderate size with 50% proximal and 99% mid with distal vessel filing via left to left collaterals.
Ramus Branch: Large vessel giving off a good size tiffanie-lateral branch with 75% proximal stenosis and a large lateral branch with 65% proximal stenosis after the bifurcation.
Left Circumflex: Normal size co-dominant vessel. OM1 good size with 70% proximal stenosis. The mid and distal circumflex are good size and free of disease supplying 3 small to moderate LPL branches and collaterals to distal RCA.
Right Coronary: Moderate size co-dominant vessel with 60% ostial and 100% mid stenosis after RV marginal branch. The mid RCA gives off a small RV branch and the distal RCA is supplied by collaterals.
Physical Exam
Vital Signs/Labs
Vital Signs
Temp Pulse Resp BP Pulse Ox
98.4 F 51 20 145/91 97
03/13/24 08:26 03/13/24 07:25 03/13/24 08:26 03/13/24 07:25 03/13/24 08:26
03/11/24 03:11
03/13/24 02:44
PT 13.9 Sec (11.4-14.6) 03/11/24 03:11
INR 1.06 03/11/24 03:11
APTT 31.5 Sec (23.4-35.0) 03/11/24 03:11
Triglycerides 158 mg/dl (10-149) H 03/09/24 03:01
LDL Cholesterol, Calc 89 mg/dl 03/09/24 03:01
VLDL Cholesterol, Calc 31 mg/dl (0-30) H 03/09/24 03:01
HDL Cholesterol 49 mg/dl 03/09/24 03:01
03/09/24
03:01
Oxs-A-Cgobmfnksub Pept 1999
Physical Exam
Constitutional: No acute distress and Comfortable
EENT: Moist mucous membranes
Cardiovascular: Rhythm & rate is regular, Pedal edema is absent, JVD pressure is normal and Systolic murmur absent
Respiratory: Respiratory effort normal and Lungs clear to auscul.
Neuro/Psych: AO x 3
Data Reviewed
-
Date of Service: March 13, 2024
EKG: Other (Tele: SB 50s)
Labs: Labs Reviewed by me
--- NOTE | 2024-03-13 18:10 | PTCARENOTE ---
pt continues to be sb on the monitor, hr in the 50s, vss. pt offers no complaints at this time. pt educated on plan of care and pt verbalized understanding. call cm within reach.
[2024-03-14] VITALS (14 sets, daily range): BP systolic 119–212; BP diastolic 75–102; PULSE 52–59; BMI 23.2
[2024-03-14 05:43] LABS: Blood Urea Nitrogen 49 mg/dl (9-20); Calcium 9.7 mg/dl (8.4-10.2); Carbon Dioxide 24 mmol/L (22-30); Chloride 103 mmol/L (98-107); Estimated Creatinine Clearance 29 ml/min; Glucose 85 mg/dl (70-99); Potassium 4.7 mmol/L (3.5-5.1); Sodium 141 mmol/L (135-145); eGFR 33.66
[2024-03-14] MEDS: ZETIA 10 MG PO (08:20)
[2024-03-14] MEDS: COREG 25 MG PO ×2 (08:20→19:46)
[2024-03-14] MEDS: LOW STRENGTH ASPIRIN 81 MG PO (08:20)
[2024-03-14] MEDS: APRESOLINE 10 MG PO ×3 (08:21→21:33)
[2024-03-14] MEDS: IMDUR (EXTENDED RELEASE) 120 MG PO (08:21)
[2024-03-14] MEDS: CARDURA 1 MG PO (08:21)
--- NOTE | 2024-03-14 08:46 | W.PN.CD ---
Today's Communication / Plan
-
Continue current management.
Tentative plan for surgery tomorrow.
Impression / Plan
-
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
failure with acute pulmonary edema and a new diagnosis of ischemic cardiomyopathy, transferred for repeat catheterization and subsequent CABG evaluation.
#Orthostatic hypotension
-Acute.
-Sxs are minimal, and BP has been significantly elevated at other times.
-Start with compression stockings and orthostatic precautions before any med changes
#CAD
-Coronary angiography re-confirms severe, multivessel disease.
-Continue aspirin, ezetimibe.
-Tentative plan for CABG on 03/15/2024 (clopidogrel washout).
#ICMO, EF 25-30%
-New diagnosis.
-Not currently in decompensated heart failure.
-GDMT is limited by renal function. He is currently on carvedilol, isosorbide mononitrate, hydralazine
#Hypertension/Hypertensive crisis
-Acute on chronic, now controlled.
-Continue carvedilol, doxazosin and isosorbide mononitrate.
-Hydralazine restarted.
#AAA/Focal dissection
-Chronic.
-Records from [facility] reviewed.
-Involving the left renal artery.
-AAA = 3.0 cm on MRI from 03/04/2024 with focal dissection, medically managed.
#CKD3b/DORY
-Stable. GFR = 30-35.
-Remote renal artery stenosis s/p renal artery stent placement.
-Monitor with medication adjustments.
#HLD
-Chronic, stable.
-Total cholesterol = 169, LDL = 89, HDL = 49, Triglycerides = 158.
-Intolerance of atorvastatin.
-Continue ezetimibe 10 mg daily.
-Rechallenge with statin vs. PCSK9i as outpatient
-Goal LDL < 55, triglycerides < 150.
PCP: Veronica Sánchez NP
CDY: Micha Shelton MD
Subjective/Interval History:
No acute events.
No subjective complaints.
DATA:
2D ECHO 02/29/24:
Severely reduced LVSF, EF 28.9%, mod-severe CLVH
indeterminate LV diastolic dysfunction
Severely dilated LA, mod dilated RA
no hemodynamically sig valvular abnormalities
mild MR
Left heart catheterization 10/05/2020:
Assessment:
ANGIOGRAPHIC FINDINGS:
Normal LV size, normal wall motion,
Calculated EF: 65%
Coronary Angiography:
Dominance: Co-dominant
Left Main: Normal size, no disease.
Left Anterior Descending: moderate size with 50% proximal and 99% mid with distal vessel filing via left to left collaterals.
Ramus Branch: Large vessel giving off a good size tiffanie-lateral branch with 75% proximal stenosis and a large lateral branch with 65% proximal stenosis after the bifurcation.
Left Circumflex: Normal size co-dominant vessel. OM1 good size with 70% proximal stenosis. The mid and distal circumflex are good size and free of disease supplying 3 small to moderate LPL branches and collaterals to distal RCA.
Right Coronary: Moderate size co-dominant vessel with 60% ostial and 100% mid stenosis after RV marginal branch. The mid RCA gives off a small RV branch and the distal RCA is supplied by collaterals.
Physical Exam
Vital Signs/Labs
Vital Signs
Temp Pulse Resp BP Pulse Ox
36.5 C 52 18 123/75 97
03/14/24 08:16 03/14/24 08:20 03/14/24 08:16 03/14/24 08:20 03/14/24 08:16
03/12/24 03/13/24 03/14/24
11:59 11:59 11:59
Actual Weight 63.3 kg
03/11/24 03:11
03/14/24 04:38
PT 13.9 Sec (11.4-14.6) 03/11/24 03:11
INR 1.06 03/11/24 03:11
APTT 31.5 Sec (23.4-35.0) 03/11/24 03:11
Triglycerides 158 mg/dl (10-149) H 03/09/24 03:01
LDL Cholesterol, Calc 89 mg/dl 03/09/24 03:01
VLDL Cholesterol, Calc 31 mg/dl (0-30) H 03/09/24 03:01
HDL Cholesterol 49 mg/dl 03/09/24 03:01
03/09/24
03:01
Ftn-I-Hsooarujwuu Pept 2000
Physical Exam
Constitutional: No acute distress and Comfortable
EENT: Anicteric and Moist mucous membranes
Cardiovascular: Rhythm & rate is regular, Pedal edema is absent, JVD pressure is normal, S1S2 is normal and Murmur/rub/gallop absent
Respiratory: Respiratory effort normal, Lungs clear to auscul., Wheeze Absent, Crackles Absent and Rhonchi Absent
GI: Soft, Distention absent, Flat, Non tender and Normal bowel sounds
Neuro/Psych: AO x 3
Data Reviewed
-
Date of Service: March 14, 2024
Medical Decision Making: Reviewed Test Results, Independent Historian Assessment and Test Interpretation
EKG: Tracing Personally Visualized and interpreted and Report Reviewed by me
Echo: Report Reviewed by me
X-Ray/CT/US/MRI/NUC/PET: Image Personally Visualized and interpreted and Report Reviewed by me
Medical Tests (PFT, Pathology etc): Image Personally Visualized and interpreted and Report Reviewed by me
Labs: Labs Reviewed by me
Old Records: Reviewed
--- NOTE | 2024-03-14 09:47 | W.PN.HOSP.TC ---
Today's Communication/Plan
-
For CABG tomorrow
Assessment / Plan
Assessment / Plan
Orthostatic hypotension -somewhat symptomatic. Suspect addition of hydralazine as a contributing factor. Coreg and doxazosin can also contribute. Supine blood pressure 127/70, pulse 51 this morning, standing blood pressure 89/58, pulse 58.
Resolved, continue compression stockings.
Recent acute hypoxic respiratory failure - admitted to [facility] February 28. Diagnosed with hypertensive emergency on admission. Required BiPAP therapy and treatment of CHF. Oxygenation currently normal on room air, 98%.
Three-vessel coronary artery disease - Cardiac catheterization results noted. CT surgery plans on revascularization on Thursday.
Essential hypertension -hypotension resolved. Antihypertensives ordered with hold parameters.
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 Unclear if he had angioplasty of the right renal artery, patient does not know anything about this.
Cardiology managing the high blood pressure.
HUEY on CKD 3B -admitted to [facility] last week with HUEY. Monitor for any contrast-induced nephropathy. IV fluids ordered. Creatinine stable. Nephrology following.
Renal artery stenosis -treated with angioplasty in the past.
Infrarenal abdominal aortic aneurysm
Carotid stenosis -underwent right CEA in the past.
Hyperlipidemia
Full code
Total time spent to see the patient on the floor, examine the patient, review data and lab results, discuss treatment plan with patient, nursing staff around 35 minutes.
Physical Exam
General: No acute distress
HEENT: Normocephalic, Atraumatic, EOMI, MMM
Respiratory: Clear to Auscultation bilaterally
Cardiac: Normal S1/S2, Regular Rate and Rhythm
GI: Soft, Nontender, Nondistended, Normal Bowel Sounds
Extremities: No Clubbing, Cyanosis, or Edema
Neuro: Nonfocal/Grossly Intact
Psych: Calm, Cooperative
Derm: No Visible lesions
Subjective/Interval History
-
Date of Service: March 14, 2024
Patient denies chest pain, shortness of breath. No headache, no nausea, no vomiting. No fever.
He had some lightheaded yesterday, that has since resolved.
Objective Data
-
Labs:
Laboratory Results
03/14/24
04:38
Sodium 141
Potassium 4.7
Chloride 103
Carbon Dioxide 24
BUN 49 H
Creatinine 2.1 H
Glucose 85
Calcium 9.7
Vital Signs:
Vital Signs
Temp Pulse Resp BP Pulse Ox
97.7 F 52 18 123/75 97
03/14/24 08:16 03/14/24 08:20 03/14/24 08:16 03/14/24 08:20 03/14/24 08:16
I&O
03/13/24 03/14/24 03/15/24
06:59 06:59 06:59
Intake Total 480 / 480
Balance 480 / 480
--- NOTE | 2024-03-14 09:57 | W.PN.NEPH.PH ---
Today's Communication / Plan
-
CABG
Assessment/Plan
-
IMP:
acute on chronic systolic HFrEF 28%
MVD on cath 03/08
Ischemic cardiomyopathy
uncontrolled hypertension possibly renovascular-improved on Minoxidil
disseminated vascular disease
Recent acute hypoxic respiratory failure
HUEY on CKD 3B -cr 1.7-2, Dr Donald
Renal artery stenosis -treated with angioplasty in the past.
Infrarenal abdominal aortic aneurysm
Carotid stenosis s/p right CEA in the past.
Hyperlipidemia
significant orthostatic BP fluxes without symptoms
Patent RRA- Left RA not well visualized on Abd MRI
Plan:
follow BMP
for possible CABG tomorrow
-
-
Date of Service: March 14, 2024
CC / HPI / ROS
-
Chief Complaint:
HUEY
History of Present Illness:
Creatinine stable at 2.2
Hemodynamically stable
no fevers
Review of Systems:
No chest pain or shortness of breath
Subjectively nonoliguric
Labs
-
Labs:
WBC 10.3 10^3/uL (4.8-10.8) 03/11/24 03:11
RBC 4.78 10^6/uL (4.70-6.10) 03/11/24 03:11
Hgb 13.3 g/dL (13.0-18.0) 03/11/24 03:11
Hct 38.8 % (39.0-52.0) L 03/11/24 03:11
Plt Count 239 10^3/uL (130-400) 03/11/24 03:11
Sodium 141 mmol/L (135-145) 03/14/24 04:38
Potassium 4.7 mmol/L (3.5-5.1) 03/14/24 04:38
Chloride 103 mmol/L (98-107) 03/14/24 04:38
Carbon Dioxide 24 mmol/L (22-30) 03/14/24 04:38
BUN 49 mg/dl (9-20) H 03/14/24 04:38
Creatinine 2.1 mg/dL (0.7-1.3) H 03/14/24 04:38
eGFR 33.66 03/14/24 04:38
Glucose 85 mg/dl (70-99) 03/14/24 04:38
Calcium 9.7 mg/dl (8.4-10.2) 03/14/24 04:38
Ipr-C-Qemzycwwczo Pept 2000 pg/ml 03/09/24 03:01
Albumin 3.9 g/dl (3.5-5.0) 03/11/24 03:11
Physical Exam
-
Vital Signs:
Vital Signs
Temp Pulse Resp BP Pulse Ox
97.7 F 52 18 123/75 97
03/14/24 08:16 03/14/24 08:20 03/14/24 08:16 03/14/24 08:20 03/14/24 08:16
Cardiovascular:: Regular rate and rhythm
Respiratory:: Bilateral: CTA
Lung Excursion:: Normal
Abdomen:: Nontender and Soft
Bowel Sounds:: Normal
Extremity Edema:: None: Bilateral:
--- NOTE | 2024-03-14 11:07 | CM ---
Reviewed chart. Met with Mr. Alas to review discharge plans. He states he is still on the schedule for surgery for tomorrow. Prior to admission he resides alone in a mobile home with four steps to enter. Prior to admission he was independent
with ambulation and adls. He does not have any DME in the home. He does not have a prescription and pays out of pocket. We reviewed [facility]. and he is aware of [facility]. [facility] He has friends who he call call to
assist in his are at home if needed. Medical work-up in progress. The discharge plan is to return home with the Cardiothoracic Transitional Care Nurse when medically stable.
--- NOTE | 2024-03-14 11:48 | PTCARENOTE ---
Pt AOx3, no complaints of pain or discomfort. Independent OOB. SR on tele monitor. NPO at AL for CVOR. Call cm within reach.
--- NOTE | 2024-03-14 12:16 | W.PN.UPDATE ---
Update Note
Progress Note Update
pt seen and examined
Reviewed again the recommendation for high risk cabg
STS risk of mortality @9%
Pt understands and wishes to proceed
Plan cabg in am
--- NOTE | 2024-03-14 12:35 | PTCARENOTE ---
pt transferred to CVICU. Report given to Dudley COLES.
--- NOTE | 2024-03-14 13:00 | PTCARENOTE ---
Patient arrived from IVU at 1230 - report given by Rosa COLES. AAOx3, follows commands and responds spontaneously to RN; SB on monitor with HR into 40's at times; VSS; DP and radial pulses present; Lungs clear; SpO2 96% on RA; Normoactive BS;
Urinating in bathroom; Skin CDI; PIV x2; Patient denies any pain at this time; See nursing documentation for further details.
--- NOTE | 2024-03-14 16:00 | PTCARENOTE ---
VSS; Patient has no complaints of pain; Ambulating in room independently.
--- NOTE | 2024-03-14 20:00 | PTCARENOTE ---
Patient prepped and clipped for surgery; CHG shower taken; Gown and linens changed.
--- NOTE | 2024-03-14 21:44 | PTCARENOTE ---
BP elevated - 212/100 manually; Patient denies chest pain, SOB, dizziness, or lightheadedness; Evening PO Carvedilol and PO Hydralazine given; CVPA Ed B. notified and aware - will recheck BP at 2200 and reassess after evening BP meds.
[2024-03-14] MEDS: APRESOLINE 10 MG IV (22:29)
[2024-03-15] VITALS (12 sets, daily range): BP systolic 99–188; BP diastolic 62–94; BMI 23.0
--- NOTE | 2024-03-15 00:27 | PTCARENOTE ---
Assumed pt care. Walking rounds completed with previous RN. Pt resting in bed at time of assessment. AAO x 4, denies pain/discomfort. Pt 96% on RA while lying, anterior/lateral BS clear/equal, denies SOB. SB on monitor with HR in 50's, denies CP,
heart tones normal, no edema noted, pulses palpable B/L. Pt up ad sriram. BS audible, BM yesterday, NPO. Voiding clear/yellow in urinal without issue. Skin intact. PIV x 2 present & patent. VS obtained.
--- NOTE | 2024-03-15 04:34 | PTCARENOTE ---
Pt asleep throughout night. VS obtained. Labs drawn & sent. Pt NPO. No other changes to previous assessment.
[2024-03-15 04:39] LABS: Hemoglobin 14.4 g/dL (13.0-18.0); Mean Corp Hgb Conc. 34.3 g/dL (33.0-37.0); Mean Corpuscular Hgb 28.6 pg (27.0-31.0); Mean Corpuscular Volume 83.3 fL (80.0-94.0); Mean Platelet Volume 11.7 fL (7.4-10.4); Platelet Count 230 10^3/uL (130-400); Red Blood Cell Count 5.04 10^6/uL (4.70-6.10); Red Cell Dist. Width 12.9 % (11.5-14.5); White Blood Cell Count 10.2 10^3/uL (4.8-10.8)
[2024-03-15 04:54] LABS: Blood Urea Nitrogen 50 mg/dl (9-20); Calcium 9.6 mg/dl (8.4-10.2); Carbon Dioxide 23 mmol/L (22-30); Chloride 106 mmol/L (98-107); Estimated Creatinine Clearance 32 ml/min; Glucose 93 mg/dl (70-99); Potassium 4.4 mmol/L (3.5-5.1); Sodium 141 mmol/L (135-145); eGFR 37.95
--- NOTE | 2024-03-15 05:45 | W.PN.UPDATE ---
Update Note
Progress Note Update
CT Surgery Update Note:
Pt's preop dose of BB was contraindicated d/t HR 51 bpm and was not given this AM
[2024-03-15] MEDS: BACTROBAN 2% OINTMENT 1 APPLIC NASAL ×2 (05:49→21:12)
[2024-03-15] MEDS: PROTONIX 40 MG PO (05:49)
[2024-03-15] MEDS: MAGNESIUM OXIDE 500 MG PO (05:49)
--- NOTE | 2024-03-15 06:00 | PTCARENOTE ---
Pt chest & B/L legs re-clipped. CHG cloth bath performed. Linens changed. Pre-op medications given as ordered - Metoprolol held for bradycardia (HR 50's) per CTS PA. Pt voided. Weight obtained on standing scale.
[2024-03-15 07:21] LABS: ACT+ - POC 107 Seconds (82-134)
--- NOTE | 2024-03-15 07:22 | W.CVOR.SURPR ---
CVOR Surgeon Immed Pre Op
-
I have examined this patient prior to performance of the scheduled procedure.
The patient's condition is unchanged from the time of the dictated/written History and
Physical and the patient is able to undergo the scheduled procedure.
[2024-03-15 07:45] LABS: Urine Albumin Negative (Neg - Trace); Urine Bilirubin Negative (Negative); Urine Character Clear (Clear); Urine Color Yellow; Urine Glucose Negative (Negative); Urine Ketone Negative (Negative); Urine Leukocyte Negative (Negative); Urine Nitrite Negative (Negative); Urine Occult Blood Negative (Negative); Urine Specific Gravity 1.015 (<1.030); Urine Urobilinogen Negative (Neg - 1+)
[2024-03-15 09:39] LABS: ACT+ - POC 586 Seconds (82-134)
[2024-03-15 10:12] LABS: B.E. - POC -0.8 mmol/L; Glucose - POC 97 mg/dl (70-99); HCO3 - POC 26 mmol/L (21-29); Hematocrit - POC 42 % PCV (42-52); Hemodilution- POC Yes; Hemoglobin Calculated - POC 14.2; Ionized Calcium - POC 1.27 mmol/L (1.12-1.27); O2 Saturation %Calculated-POC 97.7 % (92-96); PCO2 - POC 48 mmHg (35-45); PO2 - POC 106 mmHg (80-100); POC Comment PRE; Potassium - POC 4.4 mmol/L (3.6-5.0); Sodium - POC 140 mmol/L (135-145); pH - POC 7.34 (7.35-7.45)
[2024-03-15 10:29] LABS: ACT+ - POC 790 Seconds (82-134)
[2024-03-15 10:43] LABS: B.E. - POC 3.2 mmol/L; Glucose - POC 148 mg/dl (70-99); HCO3 - POC 28 mmol/L (21-29); Hematocrit - POC 37 % PCV (42-52); Hemodilution- POC Yes; Hemoglobin Calculated - POC 12.6; Ionized Calcium - POC 1.09 mmol/L (1.12-1.27); O2 Saturation %Calculated-POC 99.9 % (92-96); PCO2 - POC 40 mmHg (35-45); PO2 - POC 335 mmHg (80-100); POC Comment CPB; Potassium - POC 5.2 mmol/L (3.6-5.0); Sodium - POC 138 mmol/L (135-145); pH - POC 7.44 (7.35-7.45)
[2024-03-15 10:56] LABS: ACT+ - POC 615 Seconds (82-134)
[2024-03-15 11:20] LABS: B.E. - POC 0.8 mmol/L; Glucose - POC 162 mg/dl (70-99); HCO3 - POC 26 mmol/L (21-29); Hematocrit - POC 39 % PCV (42-52); Hemodilution- POC Yes; Hemoglobin Calculated - POC 13.3; Ionized Calcium - POC 1.14 mmol/L (1.12-1.27); PCO2 - POC 40 mmHg (35-45); PO2 - POC 373 mmHg (80-100); POC Comment CPB; Potassium - POC 6.1 mmol/L (3.6-5.0); Sodium - POC 138 mmol/L (135-145); pH - POC 7.41 (7.35-7.45)
[2024-03-15 11:30] LABS: ACT+ - POC 526 Seconds (82-134)
[2024-03-15] MEDS: CARDURA PO (11:33)
[2024-03-15] MEDS: COREG PO (11:33)
[2024-03-15] MEDS: APRESOLINE PO (11:33)
[2024-03-15] MEDS: ZETIA PO (11:34)
[2024-03-15] MEDS: IMDUR (EXTENDED RELEASE) PO (11:34)
[2024-03-15] MEDS: LOW STRENGTH ASPIRIN PO (11:34)
[2024-03-15 11:42] LABS: B.E. - POC -0.5 mmol/L; Glucose - POC 127 mg/dl (70-99); HCO3 - POC 25 mmol/L (21-29); Hematocrit - POC 37 % PCV (42-52); Hemodilution- POC Yes; Hemoglobin Calculated - POC 12.7; Ionized Calcium - POC 1.17 mmol/L (1.12-1.27); O2 Saturation %Calculated-POC 99.9 % (92-96); PCO2 - POC 43 mmHg (35-45); PO2 - POC 259 mmHg (80-100); POC Comment CPB; Potassium - POC 4.6 mmol/L (3.6-5.0); Sodium - POC 142 mmol/L (135-145); pH - POC 7.37 (7.35-7.45)
[2024-03-15 11:51] LABS: ACT+ - POC 470 Seconds (82-134)
[2024-03-15 11:58] LABS: B.E. - POC -0.1 mmol/L; Glucose - POC 89 mg/dl (70-99); HCO3 - POC 25 mmol/L (21-29); Hematocrit - POC 38 % PCV (42-52); Hemodilution- POC Yes; Hemoglobin Calculated - POC 12.9; Ionized Calcium - POC 1.18 mmol/L (1.12-1.27); PCO2 - POC 39 mmHg (35-45); PO2 - POC 444 mmHg (80-100); POC Comment STAYED WARM; Potassium - POC 4.7 mmol/L (3.6-5.0); Sodium - POC 142 mmol/L (135-145); pH - POC 7.41 (7.35-7.45)
[2024-03-15 12:04] LABS: ACT+ - POC 98 Seconds (82-134)
--- NOTE | 2024-03-15 12:39 | W.PN.CT.SURG ---
CT Surgery Operative Note
-
Pre-op Diagnosis: CHF
left main cad
LV dysfunction
Post-op Diagnosis: Same
Procedure: Cabg x 4
Juan- lad
Татьяна- diag/ramus
[id number]
On pump no clamp
REVH
LAAL #40 clip
RSF
Primary Surgeon: Rosalee
Assisting Surgeons: MD [facility] PGY2
Murt, PA - vein, chest
Specimen: None
Cultures: None
Complications / Blood Loss: None
Findings: Sriram with moderate LV dysfunction, sever LV hypertrophy
TAYA free of clot, no residual pouch or flow post clip
Good conduit
Poor lad target, poor diag target, no graftable pda
Large ramus intramocardial,
Fair om target
[2024-03-15 12:43] LABS: B.E. - POC -4.3 mmol/L; Glucose - POC 69 mg/dl (70-99); HCO3 - POC 21 mmol/L (21-29); Hematocrit - POC 35 % PCV (42-52); Hemodilution- POC Yes; Hemoglobin Calculated - POC 11.7; Ionized Calcium - POC 1.44 mmol/L (1.12-1.27); O2 Saturation %Calculated-POC 92.1 % (92-96); PCO2 - POC 37 mmHg (35-45); PO2 - POC 66 mmHg (80-100); POC Comment POST; Potassium - POC 3.9 mmol/L (3.6-5.0); Sodium - POC 143 mmol/L (135-145); pH - POC 7.36 (7.35-7.45)
[2024-03-15 13:08] LABS: Glucose - Point of Care 91 mg/dl (70-99)
[2024-03-15 13:19] LABS: B.E. -3.2 mmol/L; Hematocrit 34.9 % (39.0-52.0); Ionized Calcium 1.27 mMOL/L (1.15-1.33); O2 Saturation % 99.7 % (94-98); PCO2 39 mmHg (35-48); PO2 108 mmHg (83-108); Platelet Count 182 10^3/uL (130-400); Potassium 4.2 mMOL/L (3.5-5.1); Sodium 137 mMOL/L (136-145); pH 7.36 (7.35-7.45)
[2024-03-15 13:24] LABS: INR 1.38; PT 16.8 Sec (11.4-14.6)
[2024-03-15 13:25] LABS: APTT 30.7 Sec (23.4-35.0)
--- NOTE | 2024-03-15 13:30 | CM ---
pt in OR today, cm to follow
[2024-03-15 13:32] LABS: Blood Urea Nitrogen 47 mg/dl (9-20); Estimated Creatinine Clearance 32 ml/min; Glucose 97 mg/dl (70-99); Magnesium 2.2 mg/dl (1.6-2.3)
[2024-03-15 13:35] LABS: Mixed Venous O2 Saturation 71.1 %
--- NOTE | 2024-03-15 14:00 | PTCARENOTE ---
received pt from CVOR. Pt unresponsive sedated with precedex gtt. Pt NSR HR 70s, ABP labile initially on levo pt currently on Cardene, PAP 28/15, CVP 8, CO 2.86 CI 1.69, all lines zeroed and flushed, pedal pulses w/ doppler, V wire. pt intubated Et
tube 8.0/24 on vent SIMV 14/500/5-5/60% pox 97% CTx3 draining red blood, no air leak/tidaling/ crepitus present on upper chest and around sternal incision CTPA notified, hypoactive bs, balbuena draining clear yellow urine, sternal incision w/ aquacell
c/d/i, r groin puncture w/ dressing w/ small amount of drainage, no hematoma, r leg wrapped w/ LONNY wrap c/d/i, CT dressing c/d/i, RIJ cordis w/ SWAN 45, left rad sin intact, PIV R wrist intact, s/p labs and EKG obtained. Precedex and insulin
infusing
[2024-03-15 14:10] LABS: Glucose - Point of Care 119 mg/dl (70-99)
--- NOTE | 2024-03-15 14:48 | CON.INTV ---
Consultation
Consultation Request
Date/Time Consultation Requested: 03/15/2024
Date/Time Consultation Performed: 03/15/2024
Requesting Provider: Dr. Turk
Performing Provider: Dr. Miles Alvarez
Reason for Consultation: Status post coronary artery bypass
Medical History
-
History of Present Illness:
68-year-old man transferred from [facility] after developing flash pulmonary edema, shortness of breath. Found to be in hypertensive emergency and acute heart failure with acute kidney injury. Transferred to the [facility] for
further evaluation. Cardiac catheterization showed three-vessel coronary artery disease.
CT surgery evaluated the patient and he was deemed candidate for revascularization.
Coronary artery bypass underwent on 03/15/2024. Patient intubated, mechanical ventilation.
Record reviewed.
Past Medical History
Past Medical History: Other (See assessment and plan)
Social History
Tobacco: Non-smoker
Alcohol: Former
Drug: None
Family History
Family History: Unable to Obtain
Allergies / Home Medications
Allergies
Allergy/AdvReac Type Severity Reaction Status Date / Time
atorvastatin [From Lipitor] Allergy MYALGIA Verified 03/08/24 06:41
Home Medications
�Medication �Instructions �Recorded �Confirmed �Last Taken �Type
labetalol 100 mg tablet 100 mg PO BID Blood pressure 11/01/20 03/07/24 11/13/20 04:15 History
ezetimibe 10 mg tablet (Zetia) 10 mg PO DAILY High Cholesterol 03/07/24 03/07/24 03/07/24 05:30 History
hydralazine 100 mg tablet 100 mg PO BID Blood Pressure 03/07/24 03/08/24 03/07/24 05:30 History
hydralazine 50 mg tablet 50 mg PO DAILY Blood Pressure 03/07/24 03/07/24 Unknown History
minoxidil 2.5 mg tablet 5 mg PO DAILY Blood Pressure 03/07/24 03/07/24 03/07/24 05:30 History
Review of Systems
-
Unable to Obtain full review of systems at this time due to: Acuity and Patient Intubation
Vitals / Labs / Diagnostic Testing
Vital Signs
Temp Pulse Resp BP Pulse Ox
97.6 F 74 0 152/94 97
03/15/24 14:00 03/15/24 14:10 03/15/24 14:10 03/15/24 04:24 03/15/24 14:10
Lab Data
03/15/24 13:06
Laboratory Results
03/15/24
13:06
PT 16.8 H
INR 1.38
APTT 30.7
pH 7.36
pCO2 39
pO2 108
HCO3 22.0
O2 Delivery Level
Diagnostic Testing:
Physical Exam
-
HEENT: Normocephalic and Other (ET tube in place without secretion)
Cardiovascular: S1/S2
Respiratory: Non-Labored Respirations
GI: Soft and Non Distended
Neurology: Other (Sedated, mechanical ventilation)
Skin: Warm
General: Comfortable
Assessment
-
Status post coronary artery bypass 03/15/2024 Dr. Turk
Three-vessel coronary artery disease
Ischemic cardiomyopathy-ejection fraction 20-30%. Postoperative mechanical ventilation
Postoperative mechanical ventilation
Postoperative anemia
Conditions present prior admission:
Coronary artery jqcoglf-khgaq-opqozw
Chronic kidney disease stage IIIb
Hypertension
History of orthostatic hypotension
Infrarenal abdominal aortic aneurysm
Renal artery stenosis s/p angioplasty
Mixed hyperlipidemia
Retinal vein thrombosis
Carotid artery stenosis-severe. Status postright carotic endarterectomy.
Assessment and plan:
He is doing well postop-currently on mechanical ventilation and appears comfortable.
ABG reviewed: Adequate oxygenation and ventilation
Decrease FiO2 as tolerated.
Continue SIMV mode with no change
Spontaneous breathing trial per protocol once sedation wears off.
Anemia noted-no evidence of acute bleeding
Follow H&H serially
Hemodynamics -on low-dose Levophed. Wean off as able.
creatinine around baseline 1.9, follow closely
Alanis in place, Alanis urinary output
Follow volume status
Continue cardiac management
Eventual diuresis
Chest tube with no excessive drainage-no air leak. Small right apical pneumothorax
Chest x-ray reviewed: With no pneumothorax or fluid collections.
Remain nothing by mouth
Head of the bed elevation
Glycemic control per protocol
DVT prophylaxis when safe from the surgical perspective.
Critical care statement: A total of 31 minutes of critical care time was provided for this patient today. This includes management of unstable vital signs, evaluation of the patient at bedside, reviewing the patient's pertinent medical records
including ventilator settings, arterial blood gases, radiographs, microbiology, laboratory evaluations and discussion with primary team, critical care nursing, and respiratory therapy.
--- NOTE | 2024-03-15 14:59 | W.PN.NEPH.PH ---
Today's Communication / Plan
-
follow BMP
Assessment/Plan
-
IMP:
acute on chronic systolic HFrEF 28%
MVD on cath 03/08
Ischemic cardiomyopathy
uncontrolled hypertension possibly renovascular-improved on Minoxidil
disseminated vascular disease
Recent acute hypoxic respiratory failure
HUEY on CKD 3B -cr 1.7-2, Dr Donald
Renal artery stenosis -treated with angioplasty in the past.
Infrarenal abdominal aortic aneurysm
Carotid stenosis s/p right CEA in the past.
Hyperlipidemia
significant orthostatic BP fluxes without symptoms
Patent RRA- Left RA not well visualized on Abd MRI
Plan:
follow BMP
-
-
Date of Service: March 15, 2024
CC / HPI / ROS
-
Chief Complaint:
HUEY
History of Present Illness:
Creatinine stable at 1.9
Hemodynamically stable
no fevers
s/p CABG 03/15
Review of Systems:
intubated, sedated
Labs
-
Labs:
WBC 10.2 10^3/uL (4.8-10.8) 03/15/24 04:29
RBC 5.04 10^6/uL (4.70-6.10) 03/15/24 04:29
Sodium 141 mmol/L (135-145) 03/15/24 04:29
Potassium 4.4 mmol/L (3.5-5.1) 03/15/24 04:29
Chloride 106 mmol/L (98-107) 03/15/24 04:29
Carbon Dioxide 23 mmol/L (22-30) 03/15/24 04:29
BUN 47 mg/dl (9-20) H 03/15/24 13:06
Creatinine 1.9 mg/dL (0.7-1.3) H 03/15/24 13:06
eGFR 37.95 03/15/24 04:29
Glucose 97 mg/dl (70-99) 03/15/24 13:06
Calcium 9.6 mg/dl (8.4-10.2) 03/15/24 04:29
Wxw-Y-Uvacmeslfwf Pept 2000 pg/ml 03/09/24 03:01
Albumin 3.9 g/dl (3.5-5.0) 03/11/24 03:11
Physical Exam
-
Vital Signs:
Vital Signs
Temp Pulse Resp BP Pulse Ox
97.6 F 74 0 152/94 97
03/15/24 14:00 03/15/24 14:10 03/15/24 14:10 03/15/24 04:24 03/15/24 14:10
Cardiovascular:: Regular rate and rhythm
Respiratory:: Bilateral: CTA
Lung Excursion:: Normal
Abdomen:: Nontender and Soft
Bowel Sounds:: Normal
Extremity Edema:: None: Bilateral:
[2024-03-15 15:03] LABS: Glucose - Point of Care 123 mg/dl (70-99)
[2024-03-15] MEDS: NEURONTIN PO (15:36)
[2024-03-15] MEDS: NSS 500 IV (15:36)
[2024-03-15] MEDS: ANCEF 10 IV ×2 (15:36)
[2024-03-15] MEDS: PACERONE PO (15:36)
[2024-03-15] MEDS: TYLENOL PO (15:36)
[2024-03-15 16:02] LABS: Glucose - Point of Care 126 mg/dl (70-99)
[2024-03-15 16:51] LABS: Glucose - Point of Care 119 mg/dl (70-99)
[2024-03-15 17:00] LABS: B.E. -5.1 mmol/L; HCO3 21.2 mmol/L (21-28); Ionized Calcium 1.29 mMOL/L (1.15-1.33); O2 Saturation % 98.9 % (94-98); PCO2 43 mmHg (35-48); PO2 91 mmHg (83-108); Potassium 4.9 mMOL/L (3.5-5.1)
[2024-03-15 17:03] LABS: Hematocrit 35.7 % (39.0-52.0); Hemoglobin 12.1 g/dL (13.0-18.0); Platelet Count 203 10^3/uL (130-400)
--- NOTE | 2024-03-15 17:08 | PTCARENOTE ---
pt placed on CPAP @1615 ABG obtained, results reviewed with CTPA Juan Jose, pt able to follow commands however remains drowsy at this time, ABG outside of extubation parameters, contacted RT to put back on previous vent settings
[2024-03-15 17:27] LABS: Mixed Venous O2 Saturation 51.9 %
[2024-03-15] MEDS: SODIUM BICARBONATE 50 MEQ IV ×2 (17:29→17:34)
[2024-03-15 18:06] LABS: Glucose - Point of Care 91 mg/dl (70-99)
[2024-03-15] MEDS: ALBUMIN 5% 250 IV (18:13)
[2024-03-15] MEDS: LR 250 IV (18:19)
--- NOTE | 2024-03-15 18:32 | PTCARENOTE ---
pt CI 1.61 MVO2 obtained, reviewed w/ CTPA 250 Lr 250 Albumin ordered.
[2024-03-15 18:40] LABS: B.E. 1.1 mmol/L; HCO3 26.6 mmol/L (21-28); O2 Saturation % 99.1 % (94-98); PCO2 45 mmHg (35-48); PO2 97 mmHg (83-108); pH 7.38 (7.35-7.45)
[2024-03-15] MEDS: OFIRMEV 100 IV (18:43)
--- NOTE | 2024-03-15 19:05 | PTCARENOTE ---
pt placed on CPAP, ABG obtained, RT notified pt extubated @ 1905 to 6L NC pox 99% with no incident, pt able to state name & , pt able to follow commands, call cm within reach, pt complaining of pain 0.25 Dilaudid given
[2024-03-15] MEDS: DILAUDID 0.25 MG IV (19:18)
[2024-03-15] MEDS: LOW STRENGTH ASPIRIN 81 MG PO (19:18)
[2024-03-15 20:03] LABS: Glucose - Point of Care 92 mg/dl (70-99)
--- NOTE | 2024-03-15 20:45 | PTCARENOTE ---
Acosta sanders/angelina'tommy per order
[2024-03-15] MEDS: NEURONTIN 100 MG PO (21:08)
[2024-03-15] MEDS: ANCEF 5 IV (21:08)
[2024-03-15] MEDS: SENOKOT-S 1 TABLET PO (21:09)
[2024-03-15] MEDS: PACERONE 200 MG PO (21:09)
[2024-03-15] MEDS: TYLENOL 1000 MG PO (22:04)
[2024-03-15 22:09] LABS: Glucose - Point of Care 100 mg/dl (70-99)
--- NOTE | 2024-03-15 23:00 | PTCARENOTE ---
assumed care of patient @ 2300. received pt laying in bed, AOx3. no c/o pain or nausea. NSR on tele, BP 150s-160s systolically arterially, per CTPA to go off cuff pressures which are 140s. V wires set to 40,3,1.5. Lungs clear, diminished on 4L
satting high 90s, taking shallow breaths. IS encouraged. 3 chest tubes R L pleural and Med to wall suction no air leak or tidaling, mild crepitus noted in upper chest. tolerating sips and chips, belly soft, hypoactive. balbuena present draining clear
yellow urine. All surgical sites CDI WDL. R IJ cordis, L radial a line and PIV all patent. On insulin per protocol. pt resting comfortably with call cm within reach .
[2024-03-16] VITALS (25 sets, daily range): BP systolic 92–159; BP diastolic 49–90; PULSE 60; O2SAT 91–92
[2024-03-16 00:08] LABS: Glucose - Point of Care 87 mg/dl (70-99)
[2024-03-16] MEDS: ROXICODONE 5 MG PO ×4 (00:12→16:07)
[2024-03-16] MEDS: DILAUDID 0.25 MG IV ×2 (01:04→12:36)
[2024-03-16 02:04] LABS: Glucose - Point of Care 94 mg/dl (70-99)
--- NOTE | 2024-03-16 03:36 | W.PN.CT ---
Today's Communication / Plan
-
Plan:
-No major issues overnight. Hemodynamically and neurologically intact
-Successfully extubated on 03/15/24 @ 1905
-Off all drips but insulin per protocol
-Last CI 2.24, u/o since OR 925 mL
-D/C'd swan last night @ 2015
-D/C'd a-line this AM @ 0430
-Consider keeping balbuena another day given HUEY, 2.6
-Will transfer to [facility] phase once off insulin gtt
-Monitor chest tube drainage: med 150/405, R/L pleural 290/450; D/C med and transition pleurals to bulb suction
-Insulate temporary V-wire
-Maintain cordis
-Cont. current meds (ASA, will add Plavix, Zetia, BB; Amiodarone on hold d/t bradycardia, Cardura currently on hold)
-Wean off of O2 as tolerated
-Encourage use of IS
-OOB into chair/Ambulate
Assessment / Plan
-
Assessment:
-S/P On pump no clamp Cabg x 4 (Juan- lad, Татьяна- diag/ramus, Ao-svg-[id number])/REVH/ LAAL #40 clip/RSF, by Dr. Turk, 03/15/24, pod#1
-Severe 3v CAD/severe LM stenosis
-Acute on chronic systolic CHF
-ICM (EF 29%, has improved to 40%)
-HTN/uncontrolled (improved on Minoxidil)
-HLD
-Prediabetes (Hgb A1C 5.7)
-Preop bradycardia, 47 bpm
-CKD stage 3b
-Renal artery stenosis S/p Angioplasty
-Infrarenal AAA/Type B dissection
-B/L carotid artery stenosis S/P R CEA; LICA occluded
-Hx of orthostatic hypotension
-Acute postop blood loss/Anemia (stable without blood transfusion)
-Acute postop atelectasis
-Acute postop hypovolemia with subsequent hypervolemia
-Acute postop HUEY on CKD stage 3b
Discussed patient care with: Cardiology, Nursing, Respiratory Therapy, Pharmacy and Care Team
Subjective
Procedure
On pump no clamp Cabg x 4 (Juan- lad, Татьяна- diag/ramus, Ao-svg-[id number])/REVH/ LAAL #40 clip/RSF, by Dr. Turk, 03/15/24
-
Date of Service: March 16, 2024
Pt c/o incisional pain, otherwise feels well
Objective Data
-
PT 16.8 Sec (11.4-14.6) H 03/15/24 13:06
INR 1.38 03/15/24 13:06
APTT 30.7 Sec (23.4-35.0) 03/15/24 13:06
Vital Signs
Vital Signs
Temp Pulse Resp BP Pulse Ox
98.8 F 59 16 128/68 99
03/15/24 23:00 03/16/24 02:20 03/16/24 02:20 03/16/24 02:00 03/16/24 02:20
CT Intake/Output/Weight
03/15/24 03/15/24 03/16/24
06:59 18:59 06:59
Intake Total 628.7 / 1112.2 483.5 / 1112.2
Output Total 400 / 400 885 / 1580 695 / 1580
Balance -400 / -220 -256.3 / -467.8 -211.5 / -467.8
SaO2: 99 (2L)
Physical Exam
-
General: Awake, Oriented and AOx3
Cardiovascular: Regular rate & rhythm, No Murmurs, No Rub and No Gallop
Respiratory: Decreased Breath Sounds (at bases, otherwise clear )
Sternum: Stable
Incision: Clean, Dry, Intact and Dressing Intact
Extremities: No Edema
Data Reviewed
-
Lab Results: Results Reviewed
Medications: Active Meds Reviewed
Chest X-Ray: Report Reviewed and Image Reviewed
ECG: Report Reviewed and Image Reviewed
[2024-03-16 04:28] LABS: Glucose - Point of Care 87 mg/dl (70-99)
[2024-03-16] MEDS: ANCEF 5 IV ×2 (04:42→12:28)
[2024-03-16 04:54] LABS: Hematocrit 30.4 % (39.0-52.0); Hemoglobin 10.1 g/dL (13.0-18.0); Mean Corp Hgb Conc. 33.2 g/dL (33.0-37.0); Mean Corpuscular Hgb 28.9 pg (27.0-31.0); Mean Corpuscular Volume 86.9 fL (80.0-94.0); Mean Platelet Volume 12.6 fL (7.4-10.4); Platelet Count 153 10^3/uL (130-400); Red Cell Dist. Width 13.3 % (11.5-14.5); White Blood Cell Count 18.3 10^3/uL (4.8-10.8)
[2024-03-16 05:18] LABS: Blood Urea Nitrogen 56 mg/dl (9-20); Calcium 9.2 mg/dl (8.4-10.2); Carbon Dioxide 26 mmol/L (22-30); Chloride 106 mmol/L (98-107); Estimated Creatinine Clearance 24 ml/min; Glucose 82 mg/dl (70-99); Magnesium 2.3 mg/dl (1.6-2.3); Potassium 4.9 mmol/L (3.5-5.1); Sodium 144 mmol/L (135-145); eGFR 26.05
--- NOTE | 2024-03-16 06:00 | PTCARENOTE ---
A line removed, pt stood to scale and then to chair. slow gait. 5 of keith given for pain. call cm within reach .
[2024-03-16 06:14] LABS: Glucose - Point of Care 83 mg/dl (70-99)
[2024-03-16] MEDS: TYLENOL 1000 MG PO ×3 (06:54→22:36)
[2024-03-16] MEDS: LOPRESSOR 12.5 MG PO ×2 (07:57→20:01)
[2024-03-16] MEDS: PROTONIX 40 MG PO (07:57)
[2024-03-16] MEDS: NEURONTIN 100 MG PO ×3 (07:57→22:36)
[2024-03-16] MEDS: ZETIA 10 MG PO (07:57)
[2024-03-16] MEDS: PLAVIX 75 MG PO (07:57)
[2024-03-16] MEDS: SENOKOT-S 1 TABLET PO ×2 (07:57→20:01)
[2024-03-16] MEDS: LOW STRENGTH ASPIRIN 81 MG PO (07:57)
[2024-03-16] MEDS: MAGNESIUM OXIDE 500 MG PO ×2 (07:57→20:01)
[2024-03-16] MEDS: LIDOCAINE 4% PATCH 1 PATCH TOPICAL (07:58)
[2024-03-16] MEDS: BACTROBAN 2% OINTMENT 1 APPLIC NASAL ×2 (07:58→20:02)
--- NOTE | 2024-03-16 07:58 | W.PN.ANS.POP ---
Anesthesia Post Operative
- Anesthesia Post Op Note
Vital Signs Stable-See Nursing Note: Yes
Airway Patent: Yes
Adequate Pain Control: Yes
Change in Mental Status: No
Current Postoperative Nausea & Vomiting: No
Anesthesia Complications: No
General Anesthetic Recall: No
Unplanned Admission: No
Post Op Hydration Adequate: Yes
[2024-03-16 08:10] LABS: Glucose - Point of Care 85 mg/dl (70-99)
--- NOTE | 2024-03-16 08:17 | W.PN.CD ---
Today's Communication / Plan
-
Resume GDMT as tolerated
Impression / Plan
-
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
failure with acute pulmonary edema and a new diagnosis of ischemic cardiomyopathy, transferred for repeat catheterization and subsequent CABG evaluation now status post CABG 03/15.
#CAD status post CABG 03/15
-Cabg x 4 (Juan- lad, Татьяна- diag/ramus, Ao-svg-om1)/REVH/ LAAL #40 clip/RSF
-Continue aspirin, ezetimibe.
-Routine post operative care per primary surgical team.
-Pain/chest tube management per CT surgery.
-Had ST elevations in anterior leads yesterday prompting repeat echocardiogram which was stable from prior
-ECG somewhat improved today. Suspect he may have an evolving aneurysm.
# HUEY
-Likely due to intraoperative decreased perfusion
-Continue to trend, hold nephrotoxic meds
-Hold diuresis
#ICMO, EF 25-30%
-New diagnosis.
-Not currently in decompensated heart failure.
-GDMT is limited by renal function. He is currently on carvedilol, isosorbide mononitrate, hydralazine. Resume as tolerated.
#Hypertension/Hypertensive crisis
-Acute on chronic, now controlled.
-Resume home medications as tolerated
#AAA/Focal dissection
-Chronic.
-Records from [facility] reviewed.
-Involving the left renal artery.
-AAA = 3.0 cm on MRI from 03/04/2024 with focal dissection, medically managed.
#CKD3b/DORY
-Stable. GFR = 30-35.
-Remote renal artery stenosis s/p renal artery stent placement.
-Monitor with medication adjustments.
#HLD
-Chronic, stable.
-Total cholesterol = 169, LDL = 89, HDL = 49, Triglycerides = 158.
-Intolerance of atorvastatin.
-Continue ezetimibe 10 mg daily.
-Rechallenge with statin vs. PCSK9i as outpatient
-Goal LDL < 55, triglycerides < 150.
PCP: Veronica Sánchez NP
CDY: Micha Shelton MD
Subjective/Interval History:
Patient feels well this morning. He was extubated yesterday evening and is off all drips. He is complaining of some pleuritic chest pain and shortness of breath, but otherwise feels well. Denies swelling. On review of telemetry he had some
triplets overnight and 13 beats of AIVR.
DATA:
2D ECHO 02/29/24:
Severely reduced LVSF, EF 28.9%, mod-severe CLVH
indeterminate LV diastolic dysfunction
Severely dilated LA, mod dilated RA
no hemodynamically sig valvular abnormalities
mild MR
Left heart catheterization 10/05/2020:
Assessment:
ANGIOGRAPHIC FINDINGS:
Normal LV size, normal wall motion,
Calculated EF: 65%
Coronary Angiography:
Dominance: Co-dominant
Left Main: Normal size, no disease.
Left Anterior Descending: moderate size with 50% proximal and 99% mid with distal vessel filing via left to left collaterals.
Ramus Branch: Large vessel giving off a good size tiffanie-lateral branch with 75% proximal stenosis and a large lateral branch with 65% proximal stenosis after the bifurcation.
Left Circumflex: Normal size co-dominant vessel. OM1 good size with 70% proximal stenosis. The mid and distal circumflex are good size and free of disease supplying 3 small to moderate LPL branches and collaterals to distal RCA.
Right Coronary: Moderate size co-dominant vessel with 60% ostial and 100% mid stenosis after RV marginal branch. The mid RCA gives off a small RV branch and the distal RCA is supplied by collaterals.
Physical Exam
Vital Signs/Labs
Vital Signs
Temp Pulse Resp BP Pulse Ox
98.5 F 59 16 147/77 92
03/16/24 08:00 03/16/24 08:00 03/16/24 08:00 03/16/24 07:00 03/16/24 08:00
03/15/24 03/16/24 03/17/24
06:59 06:59 06:59
Actual Weight 62.7 kg
03/16/24 04:21
03/16/24 04:21
PT 16.8 Sec (11.4-14.6) H 03/15/24 13:06
INR 1.38 03/15/24 13:06
APTT 30.7 Sec (23.4-35.0) 03/15/24 13:06
Magnesium 2.3 mg/dl (1.6-2.3) 03/16/24 04:21
Triglycerides 158 mg/dl (10-149) H 03/09/24 03:01
LDL Cholesterol, Calc 89 mg/dl 03/09/24 03:01
VLDL Cholesterol, Calc 31 mg/dl (0-30) H 03/09/24 03:01
HDL Cholesterol 49 mg/dl 03/09/24 03:01
03/09/24
03:01
Lar-E-Wskudxepbcu Pept 2000
Physical Exam
Constitutional: No acute distress and Comfortable
Cardiovascular: Rhythm & rate is regular, Pedal edema is absent, JVD pressure is normal and Murmur/rub/gallop absent
Respiratory: Respiratory effort normal and Lungs clear to auscul.
Data Reviewed
-
Date of Service: March 16, 2024
Medical Decision Making: Reviewed Test Results
EKG: Tracing Personally Visualized and interpreted
Echo: Tracing Personally Visualized and interpreted
X-Ray/CT/US/MRI/NUC/PET: Image Personally Visualized and interpreted
Labs: Labs Reviewed by me
Total Time Spent with Patient (in minutes): 35
--- NOTE | 2024-03-16 08:30 | PTCARENOTE ---
Assumed care of patient at 0700. Pt is awake, alert, and oriented. Pt with minimal complaints of sternal pain. Audible rub on auscultation. Pt remains SB/SR with HR 50's-60's. BP 111/67 MAP 80. Epicardial V wire in place, set to VVI 40/3/5. Pulse
oximetry 92% on room air. Pt achieving 750 with IS, continued use encouraged. Chest tubes x3 in place, mediastinal and left/right pleural chest tubes. No sign of air leak, crepitus noted in upper chest greater on left than right, drainage
serosanguineous. Pt tolerating clear liquid diet and PO medications. Alanis catheter in place, draining yellow urine. Midsternal incision with post-op dressing in place. Right groin puncture intact, right leg with LONNY wrap overlay in place. Right IJ
cordis intact with KVO. Pt remains on insulin gtt per glycemic protocol. Pt currently sitting OOB in chair.
[2024-03-16] MEDS: FLEXERIL 5 MG PO ×2 (09:04→20:01)
[2024-03-16] MEDS: LASIX 20 MG IV (09:04)
[2024-03-16 10:10] LABS: Glucose - Point of Care 123 mg/dl (70-99)
--- NOTE | 2024-03-16 10:54 | PTCARENOTE ---
Pt with left sided gas pain after drinking diet maria t latisha, pain has subsided at this time. Pt assisted back to bed, mediastinal chest tube d/c'd per order, left and right chest tubes placed to bulb per order. Epicardial V wire insulated. Alanis
catheter d/c'd at 0930, DTV by 1530. 20mg IV Lasix administered.
[2024-03-16 12:01] LABS: Glucose - Point of Care 133 mg/dl (70-99)
[2024-03-16] MEDS: ZOFRAN 4 MG IV (12:40)
[2024-03-16] MEDS: NSS IV (12:41)
--- NOTE | 2024-03-16 13:37 | W.PN.NEPH.PH ---
Today's Communication / Plan
-
follow lab s
Assessment/Plan
-
IMP:
acute on chronic systolic HFrEF 28%
MVD on cath 03/08
S/P On pump no clamp Cabg x 4 (Juan- lad, Татьяна- diag/ramus, Ao-svg-om1)/REVH/ LAAL #40 clip/RSF, by Dr. Turk, 03/15/24
Ischemic cardiomyopathy
uncontrolled hypertension possibly renovascular-improved on Minoxidil
disseminated vascular disease
Recent acute hypoxic respiratory failure
HUEY on CKD 3B -cr 1.7-2, Dr Donald
Renal artery stenosis -treated with angioplasty in the past.
Infrarenal abdominal aortic aneurysm
Carotid stenosis s/p right CEA in the past.
Hyperlipidemia
significant orthostatic BP fluxes without symptoms
Patent RRA- Left RA not well visualized on Abd MRI
Plan:
HUEY-cr up post CABG POD 1, EF better at 40%
mostly hemodynamic related
BPs are soft but improving now, holding antiHTN meds
non oliguric , off balbuena this am, follow bladder scan
holding diuresis
follow BMP and daily wts
d/w nursing and pt
-
-
Date of Service: March 16, 2024
CC / HPI / ROS
-
Chief Complaint:
HUEY
History of Present Illness:
Creatinine up at 2.6
Hemodynamically stable now , not on pressors
s/p CABG 03/15
Review of Systems:
feels well, pain at surgical site
no abd pain.
tolerating po
no nv/
Labs
-
Labs:
WBC 18.3 10^3/uL (4.8-10.8) H 03/16/24 04:21
RBC 3.50 10^6/uL (4.70-6.10) L 03/16/24 04:21
Hgb 10.1 g/dL (13.0-18.0) L 03/16/24 04:21
Hct 30.4 % (39.0-52.0) L 03/16/24 04:21
Plt Count 153 10^3/uL (130-400) D 03/16/24 04:21
eGFR 26.05 03/16/24 04:21
Hhh-I-Imujoxutgoj Pept 2000 pg/ml 03/09/24 03:01
Albumin 3.9 g/dl (3.5-5.0) 03/11/24 03:11
Physical Exam
-
Vital Signs:
Vital Signs
Temp Pulse Resp BP Pulse Ox
98.3 F 59 16 130/67 92
03/16/24 12:00 03/16/24 13:25 03/16/24 13:00 03/16/24 13:00 03/16/24 12:00
Cardiovascular:: Regular rate and rhythm
Lung Excursion:: Normal (decreased)
Abdomen:: Nontender and Soft
Extremity Edema:: None: Bilateral:
Balbuena Catheter: No
--- NOTE | 2024-03-16 13:42 | W.PN.INTV ---
Today's Communication / Plan
Recommendations
Continue postoperative care
Follow chest tube output
Follow H&H
Follow renal function
Eventual diuresis
Sign of
Assessment
-
Status post coronary artery bypass 03/15/2024 Dr. Turk
Three-vessel coronary artery disease
Ischemic cardiomyopathy-ejection fraction 20-30%. Postoperative mechanical ventilation
Postoperative mechanical ventilation
Postoperative anemia
Conditions present prior admission:
Coronary artery oryglbc-dvaoa-spljdh
Chronic kidney disease stage IIIb
Hypertension
History of orthostatic hypotension
Infrarenal abdominal aortic aneurysm
Renal artery stenosis s/p angioplasty
Mixed hyperlipidemia
Retinal vein thrombosis
Carotid artery stenosis-severe. Status postright carotic endarterectomy.
Assessment and plan:
Postoperative day 1
Extubated, on low rate supplemental oxygen
Relatively clear lung exam
Incentive spirometry encouraged
Increase activity as able
Analgesia will continue
Increase activity as tolerated per protocol
Anemia noted-no evidence of acute bleeding
Follow H&H serially
Hemodynamics -off vasopressors.
Creatinine worsening. Follow urinary output.
Alanis in place
Follow volume status
Continue cardiac management
Eventual diuresis
Chest tube with no excessive drainage-no air leak.
Chest x-ray reviewed 03/16/2024: With no pneumothorax or fluid collections. Left basilar atelectasis. No pneumothorax.
Advance diet as tolerated
Head of the bed elevation
Glycemic control per protocol
DVT prophylaxis when safe from the surgical perspective.
Patient has been transition to telemetry.
Critical care team will sign off
Subjective Dataa
Subjective Data
Date of Service:
Date of Service: March 16, 2024
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
Subjective:
No overnight events
Extubated 03/15/2024
Denies shortness of breath at rest
Denies any cough or phlegm production
Pain is controlled
Review of Systems
Cardiopulmonary: Dyspnea (None at rest)
GI: Abdominal Pain (n), Nausea (n) and Vomiting (n)
Neuro: Headache (n)
Objective Data
Data Reviewed
Vital Signs / I&O / Oxygen:
Vital Signs
Temp Pulse Resp BP Pulse Ox
98.3 F 59 16 130/67 92
03/16/24 12:00 03/16/24 13:25 03/16/24 13:00 03/16/24 13:00 03/16/24 12:00
Intake and Output
03/15/24 03/16/24 03/17/24
06:59 06:59 06:59
Intake Total 180 / 180 1143.1 / 1153.4 76.3 / 76.3
Output Total 400 / 400 1780 / 1860 325 / 325
Balance -220 / -220 -636.9 / -706.6 -248.7 / -248.7
SaO2 [CPAP] 94
SaO2 [SIMV] 95
SaO2 92
Nasal Cannula flow liters per 2
minute
Physical Exam
General: Comfortable
HEENT: Normocephalic
Cardiovascular: S1-S2
Respiratory: Non-Labored Respirations and Chest Tube (No air leak or excessive drainage)
GI: Soft and Non Distended
Neurology: Awake and Alert
Skin: Warm
Labs/Micro/Reports
Lab Data
03/16/24 04:21
Laboratory Results
03/15/24 03/15/24
16:48 18:29
pH 7.30 L 7.38
pCO2 43 45
pO2 91 97
HCO3 21.2 26.6
O2 Delivery Level
[2024-03-16 13:49] LABS: Blood Urea Nitrogen 66 mg/dl (9-20); Calcium 9.2 mg/dl (8.4-10.2); Carbon Dioxide 26 mmol/L (22-30); Chloride 103 mmol/L (98-107); Estimated Creatinine Clearance 21 ml/min; Glucose 108 mg/dl (70-99); Potassium 5.1 mmol/L (3.5-5.1); Sodium 141 mmol/L (135-145); eGFR 21.94
[2024-03-16 13:58] LABS: Glucose - Point of Care 100 mg/dl (70-99)
--- NOTE | 2024-03-16 16:45 | PTCARENOTE ---
Pt with complaints of pain. Anxious, requiring frequent reassurance. No void at this time, bladder scanned for 295.
--- NOTE | 2024-03-16 21:00 | PTCARENOTE ---
Assumed care of pt from braydon RN. Pt AAOx3. WEI. Pt slightly anxious about pain levels and his recovery process. Pt SR on the tele monitor. HR 60s. Temporary epicardial v-wire insulated. BP stable. Bilateral radial pulses palpable. Bilateral DP
pulses present via Doppler. No edema noted. Pt POX 87-89% on RA. Pt on 2 L NC and POX 95%. Lung sounds diminished at the base. Pt independently working on his IS. Deep breathing encouraged. R/L pleural CT to bulb. Output appropriate. CT dressing
CDI. Abdomen soft/nontender. +BS. Pt due to void. Bladder scanned for 368 mL. Pt attempted to void in urinal and was unable at this time. All surgical sites stable. Right IJ cordis and left PIVx1 CDI. Pt assisted out of the chair and into bed. See
worklist for full nursing assessment and interventions. Call cm within reach of pt.
[2024-03-17] VITALS (12 sets, daily range): BP systolic 88–160; BP diastolic 58–91; PULSE 62; O2SAT 70–94
--- NOTE | 2024-03-17 00:08 | PTCARENOTE ---
No acute changes in assessment. Pt remains SR on the tele monitor. HR 60s. BP slightly elevated. Pt on 2 L NC. POX 96%. R/L pleural CT to bulb intact and output appropriate. Pt has attempted to void multiple times with minimal output. See worklist
for bladder scans. All surgical sites stable. Call cm within reach.
--- NOTE | 2024-03-17 01:45 | PTCARENOTE ---
Pt bladder scanned for 494 ml. Pt assisted OOB to attempt to void. Pt able to void 160 ml. Post void residual 350 mL. Pt denies bladder discomfort or pain. Call cm within reach.
--- NOTE | 2024-03-17 02:52 | W.PN.CT ---
Today's Communication / Plan
-
No major issues overnight �
Monitor chest tube drainage:� R/L pleural Bulb =�35 MED 50/49=679
UO =435
Insulate temporary V-wire�
Maintain cordis�
Cont. current meds (ASA, Plavix, Zetia, BB; Amiodarone on hold d/t bradycardia�
Cardura currently on hold)�
Wean off of O2 as tolerated�
Encourage use of IS�
OOB into chair/Ambulate�
Monitor Creatinine 1.9, 2.6, 3.0, 3.2
Assessment / Plan
-
Assessment:
-S/P On pump no clamp Cabg x 4 (Juan- lad, Татьяна- diag/ramus, Ao-svg-om1)/REVH/ LAAL #40 clip/RSF, by Dr. Turk, 03/15/24, pod#2
-Severe 3v CAD/severe LM stenosis
-Acute on chronic systolic CHF
-ICM (EF 29%, has improved to 40%)
-HTN/uncontrolled (improved on Minoxidil)
-HLD
-Prediabetes (Hgb A1C 5.7)
-Preop bradycardia, 47 bpm
-CKD stage 3b
-Renal artery stenosis S/p Angioplasty
-Infrarenal AAA/Type B dissection
-B/L carotid artery stenosis S/P R CEA; LICA occluded
-Hx of orthostatic hypotension
-Acute postop blood loss/Anemia (stable without blood transfusion)
-Acute postop atelectasis
-Acute postop hypovolemia with subsequent hypervolemia
-Acute postop HUEY on CKD stage 3b
Subjective
Procedure
On pump no clamp Cabg x 4 (Juan- lad, Татьяна- diag/ramus, Ao-svg-om1)/REVH/ LAAL #40 clip/RSF, by Dr. Turk, 03/15/24
-
Date of Service: March 17, 2024
Objective Data
-
PT 16.8 Sec (11.4-14.6) H 03/15/24 13:06
INR 1.38 03/15/24 13:06
APTT 30.7 Sec (23.4-35.0) 03/15/24 13:06
Vital Signs
Vital Signs
Temp Pulse Resp BP Pulse Ox
97.8 F 61 16 160/91 96
03/17/24 00:03 03/17/24 00:03 03/17/24 00:03 03/17/24 00:03 03/17/24 00:03
CT Intake/Output/Weight
03/16/24 03/16/24 03/17/24
06:59 18:59 06:59
Intake Total 514.4 / 1153.4 126.3 / 176.3 50 / 176.3
Output Total 895 / 1860 325 / 640 315 / 640
Balance -380.6 / -706.6 -198.7 / -463.7 -265 / -463.7
SaO2: 96
Physical Exam
-
General: Awake
Cardiovascular: Regular rate & rhythm
Respiratory: Clear and Equal
Sternum: Stable
Incision: Clean, Dry and Intact
Extremities: Edema +1
--- NOTE | 2024-03-17 03:33 | PTCARENOTE ---
Pt reassessed. Pt sinus rhythm to sinus maggy on the tele monitor. HR 50-60s. Temporary epicardial V-wire insulated. BP 150/81. Remains on 2 L NC. POX 98%. R/L pleural CT to bulb intact and draining appropriately. All surgical sites stable. Labs
drawn and sent. Call cm within reach.
[2024-03-17 03:43] LABS: Hematocrit 26.4 % (39.0-52.0); Hemoglobin 8.8 g/dL (13.0-18.0); Mean Corp Hgb Conc. 33.3 g/dL (33.0-37.0); Mean Corpuscular Volume 87.1 fL (80.0-94.0); Mean Platelet Volume 12.3 fL (7.4-10.4); Platelet Count 137 10^3/uL (130-400); Red Blood Cell Count 3.03 10^6/uL (4.70-6.10); Red Cell Dist. Width 13.5 % (11.5-14.5); White Blood Cell Count 18.7 10^3/uL (4.8-10.8)
[2024-03-17 04:15] LABS: Blood Urea Nitrogen 76 mg/dl (9-20); Calcium 8.7 mg/dl (8.4-10.2); Carbon Dioxide 25 mmol/L (22-30); Chloride 94 mmol/L (98-107); Estimated Creatinine Clearance 19 ml/min; Glucose 160 mg/dl (70-99); Magnesium 2.4 mg/dl (1.6-2.3); Potassium 4.9 mmol/L (3.5-5.1); Sodium 132 mmol/L (135-145)
[2024-03-17] MEDS: TYLENOL 1000 MG PO ×3 (06:17→22:39)
[2024-03-17] MEDS: ROXICODONE 5 MG PO ×3 (07:54→19:49)
[2024-03-17] MEDS: FLEXERIL 5 MG PO ×2 (07:54→19:49)
--- NOTE | 2024-03-17 08:45 | PTCARENOTE ---
Assumed care of patient at 0700. Pt is awake, alert, and oriented. Pt with complaints of left sided sternal pain after eating breakfast. PRN Roxicodone and Flexeril administered. Pt remains SB/SR with HR 50's-60's. BP 130/69 MAP 87. Epicardial V
wire in place, insulated. Pulse oximetry 93% on room air. Left and right pleural chest tubes in place to bulb, drainage serosanguineous. Pt tolerating PO diet. Voiding in urinal without issue this morning. Midsternal incision with post-op dressing
in place. 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 Right groin puncture with dressing in place. Right IJ cordis in place with KVO. Pt OOB in chair at this time.
[2024-03-17] MEDS: LOPRESSOR PO (09:19)
[2024-03-17] MEDS: LASIX 40 MG IV (09:26)
[2024-03-17] MEDS: LIDOCAINE 4% PATCH 1 PATCH TOPICAL (09:26)
[2024-03-17] MEDS: PLAVIX 75 MG PO (09:27)
[2024-03-17] MEDS: SENOKOT-S 1 TABLET PO ×2 (09:27→19:49)
[2024-03-17] MEDS: NEURONTIN 100 MG PO ×3 (09:27→22:43)
[2024-03-17] MEDS: LOW STRENGTH ASPIRIN 81 MG PO (09:27)
[2024-03-17] MEDS: COREG 6.25 MG PO ×2 (09:27→19:49)
[2024-03-17] MEDS: MAGNESIUM OXIDE 500 MG PO ×2 (09:27→19:49)
[2024-03-17] MEDS: ZETIA 10 MG PO (09:27)
[2024-03-17] MEDS: PROTONIX 40 MG PO (09:27)
[2024-03-17] MEDS: BACTROBAN 2% OINTMENT 1 APPLIC NASAL ×2 (09:28→19:54)
--- NOTE | 2024-03-17 10:00 | W.PN.CD ---
Today's Communication / Plan
-
consider switching metop to coreg 6.25 mg bid
watch kidney function
Impression / Plan
-
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
failure with acute pulmonary edema and a new diagnosis of ischemic cardiomyopathy, transferred for repeat catheterization and subsequent CABG evaluation now status post CABG 03/15.
#CAD status post CABG 03/15
-Cabg x 4 (Juan- lad, Татьяна- diag/ramus, Ao-svg-om1)/REVH/ LAAL #40 clip/RSF
-Continue aspirin, ezetimibe.
-Routine post operative care per primary surgical team.
-Pain/chest tube management per CT surgery.
-Had ST elevations in anterior leads yesterday prompting repeat echocardiogram which was stable from prior
-ECG somewhat improved today. Suspect he may have an evolving aneurysm.
# HUEY 3.2 03/17
-Likely due to intraoperative decreased perfusion
-Continue to trend, hold nephrotoxic meds
-Hold diuresis
#ICMO, EF 25-30%
-New diagnosis.
-Not currently in decompensated heart failure.
-GDMT is limited by renal function.
- Previously on carvedilol, isosorbide mononitrate, hydralazine.
- on Metoprolol discussed switching to coreg
#Hypertension/Hypertensive crisis
-Acute on chronic, now controlled.
-Resume home medications as tolerated
#AAA/Focal dissection
-Chronic.
-Records from [facility] reviewed.
-Involving the left renal artery.
-AAA = 3.0 cm on MRI from 03/04/2024 with focal dissection, medically managed.
#CKD3b/DORY
-Stable. GFR = 30-35.
-Remote renal artery stenosis s/p renal artery stent placement.
-Monitor with medication adjustments.
#HLD
-Chronic, stable.
-Total cholesterol = 169, LDL = 89, HDL = 49, Triglycerides = 158.
-Intolerance of atorvastatin.
-Continue ezetimibe 10 mg daily.
-Rechallenge with statin vs. PCSK9i as outpatient
-Goal LDL < 55, triglycerides < 150.
PCP: Veronica Sánchez NP
CDY: Micha Shelton MD
Physical Exam
Vital Signs/Labs
Vital Signs
Temp Pulse Resp BP Pulse Ox
98.4 F 58 16 130/69 93
03/17/24 08:00 03/17/24 09:40 03/17/24 08:00 03/17/24 08:00 03/17/24 08:30
03/17/24 03:27
03/17/24 03:27
PT 16.8 Sec (11.4-14.6) H 03/15/24 13:06
INR 1.38 03/15/24 13:06
APTT 30.7 Sec (23.4-35.0) 03/15/24 13:06
Magnesium 2.4 mg/dl (1.6-2.3) H 03/17/24 03:27
Triglycerides 158 mg/dl (10-149) H 03/09/24 03:01
LDL Cholesterol, Calc 89 mg/dl 03/09/24 03:01
VLDL Cholesterol, Calc 31 mg/dl (0-30) H 03/09/24 03:01
HDL Cholesterol 49 mg/dl 03/09/24 03:01
03/09/24
03:01
Mdv-H-Kcyrhthilfm Pept 2000
Physical Exam
Constitutional: No acute distress and Comfortable
Cardiovascular: Rhythm & rate is regular and Pedal edema is absent
Respiratory: Respiratory effort normal and Lungs clear to auscul.
GI: Soft
Neuro/Psych: AO x 3
Data Reviewed
-
Date of Service: March 17, 2024
EKG: Tracing Personally Visualized and interpreted (sr)
Echo: Tracing Personally Visualized and interpreted and Report Reviewed by me
Labs: Labs Reviewed by me
--- NOTE | 2024-03-17 13:10 | PTCARENOTE ---
Pt ambulating without issue. Pt remains SR/SB with HR 50's-60's. BP 111/68 MAP 80. Pulse oximetry 93% on room air. No complaints of pain at this time. Pt voiding without issue.
--- NOTE | 2024-03-17 13:38 | W.PN.NEPH.PH ---
Today's Communication / Plan
-
follow labs and bladder scan
Assessment/Plan
-
IMP:
acute on chronic systolic HFrEF 28%-after CABG 40%
MVD on cath 03/08
S/P On pump no clamp Cabg x 4 (Juan- lad, Татьяна- diag/ramus, Ao-svg-om1)/REVH/ LAAL #40 clip/RSF, by Dr. Turk, 03/15/24
Ischemic cardiomyopathy
uncontrolled hypertension possibly renovascular-improved on Minoxidil
disseminated vascular disease
Recent acute hypoxic respiratory failure
HUEY on CKD 3B -cr 1.7-2, Dr Donald
Renal artery stenosis -treated with angioplasty in the past.
Infrarenal abdominal aortic aneurysm
Carotid stenosis s/p right CEA in the past.
Hyperlipidemia
significant orthostatic BP fluxes without symptoms
Patent RRA- Left RA not well visualized on Abd MRI
Plan:
HUEY-cr up still at 3.2, post CABG POD 2,
mostly hemodynamic related ATN
BPs are stable on coreg
non oliguric , follow bladder scan PVR 390cc
low threshold for balbuena
wt increasing s/p lasix today
monitor hyponatremia
follow BMP and daily wts
-
-
Date of Service: March 17, 2024
CC / HPI / ROS
-
Chief Complaint:
HUEY
History of Present Illness:
Creatinine up at 3.2
Hemodynamically stable , sodium low 132
PVR 390cc, off balbuena 03/16
s/p CABG 03/15
Review of Systems:
feels well,able to breath deeper
no abd pain.
tolerating po
no nv/
Labs
-
Labs:
WBC 18.7 10^3/uL (4.8-10.8) H 10/10/24 03:27
RBC 3.03 10^6/uL (4.70-6.10) L 03/17/24 03:27
Hgb 8.8 g/dL (13.0-18.0) L 03/17/24 03:27
Hct 26.4 % (39.0-52.0) L 03/17/24 03:27
Plt Count 137 10^3/uL (130-400) 03/17/24 03:27
Sodium 132 mmol/L (135-145) L D 03/17/24 03:27
Potassium 4.9 mmol/L (3.5-5.1) 03/17/24 03:27
Chloride 94 mmol/L (98-107) L 03/17/24 03:27
Carbon Dioxide 25 mmol/L (22-30) 03/17/24 03:27
BUN 76 mg/dl (9-20) H 03/17/24 03:27
Creatinine 3.2 mg/dL (0.7-1.3) H 03/17/24 03:27
eGFR 20.30 03/17/24 03:27
Glucose 160 mg/dl (70-99) H 03/17/24 03:27
Calcium 8.7 mg/dl (8.4-10.2) 03/17/24 03:27
Fhs-Y-Zxjuwasxnlq Pept 2000 pg/ml 03/09/24 03:01
Albumin 3.9 g/dl (3.5-5.0) 03/11/24 03:11
Physical Exam
-
Vital Signs:
Vital Signs
Temp Pulse Resp BP Pulse Ox
98.5 F 58 18 111/68 93
03/17/24 13:09 03/17/24 13:09 03/17/24 13:09 03/17/24 13:00 03/17/24 13:09
Cardiovascular:: Regular rate and rhythm
Respiratory:: Bilateral: Rales (left base)
Lung Excursion:: Normal
Abdomen:: Nontender and Soft
Extremity Edema:: None: Bilateral:
Balbuena Catheter: No
[2024-03-17] MEDS: NSS 500 IV (15:07)
--- NOTE | 2024-03-17 15:26 | CM ---
CM following for DC planning needs.
Met w/ patient at bedside. He reports that he is feeling well.
We discussed DC plans. He plans to go home with [facility] Transitional [facility] RN. He resides alone but he reports that he has a friend that is going to assist him with grocery shopping, etc. He does have questions regarding appropriate foods for heart
failure. I did TT Heart Failure Coordinator requesting a visit, if possible.
He does not feel that he will need inpatient rehab. I have observed him ambulating ad sriram around the arzate without issue.
At this time, antic. home w/ [facility] RN.
CM to follow.
--- NOTE | 2024-03-17 16:00 | PTCARENOTE ---
Pt with complaints of pain, PRN Roxicodone administered per order. Pt remains SB with HR 50's. BP 118/66 MAP 81. Pulse oximetry 93% on room air. Pt ambulating without issue with RN assistance around unit.
--- NOTE | 2024-03-17 19:00 | PTCARENOTE ---
report received from previous RN, walking rounds done. pt in chair, AAOx4. pt c/o sternal incision pain. PRN meds given as ordered. VSS. SR/SB 50s-60s. POX 94% on room air. CT x2 intact to bulb suction, drainage WNL. RIJ cordis intact w KVO
infusing. all surgical sites stable. see worklist for full assessment, VS, and interventions. pt resting comfortably.
[2024-03-18] VITALS (11 sets, daily range): BP systolic 103–145; BP diastolic 56–88; PULSE 63; O2SAT 93–94; BMI 24.4
--- NOTE | 2024-03-18 01:32 | W.PN.CT ---
Today's Communication / Plan
-
No major issues overnight��
Monitor chest tube drainage:� R/L pleural Bulb =�L =40/10=50; 250/60 = 310
Insulate temporary V-wire�
40 mg of lasix given, UOP 1400/750 =2150
Consider DC cordis�
Cont. current meds (ASA, Plavix, Zetia, BB; Amiodarone, Cardura)�
Wean off of O2 as tolerated�
Encourage use of IS�
OOB into chair/Ambulate�
Monitor Creatinine 1.9, 2.6, 3.0, 3.2, 2.5
Assessment / Plan
-
Assessment:
-S/P On pump no clamp Cabg x 4 (Juan- lad, Татьяна- diag/ramus, Ao-svg-om1)/REVH/ LAAL #40 clip/RSF, by Dr. Turk, 03/15/24, pod#3
-Severe 3v CAD/severe LM stenosis
-Acute on chronic systolic CHF
-ICM (EF 29%, has improved to 40%)
-HTN/uncontrolled (improved on Minoxidil)
-HLD
-Prediabetes (Hgb A1C 5.7)
-Preop bradycardia, 47 bpm
-CKD stage 3b
-Renal artery stenosis S/p Angioplasty
-Infrarenal AAA/Type B dissection
-B/L carotid artery stenosis S/P R CEA; LICA occluded
-Hx of orthostatic hypotension
-Acute postop blood loss/Anemia (stable without blood transfusion)
-Acute postop atelectasis
-Acute postop hypovolemia with subsequent hypervolemia
-Acute postop HUEY on CKD stage 3b
Subjective
Procedure
On pump no clamp Cabg x 4 (Juan- lad, Татьяна- diag/ramus, Ao-svg-om1)/REVH/ LAAL #40 clip/RSF, by Dr. Turk, 03/15/24
-
Date of Service: March 18, 2024
Objective Data
-
PT 16.8 Sec (11.4-14.6) H 03/15/24 13:06
INR 1.38 03/15/24 13:06
APTT 30.7 Sec (23.4-35.0) 03/15/24 13:06
Vital Signs
Vital Signs
Temp Pulse Resp BP Pulse Ox
98.3 F 68 17 154/79 94
03/17/24 19:53 03/17/24 23:00 03/17/24 19:53 03/17/24 19:53 03/17/24 20:00
CT Intake/Output/Weight
03/17/24 03/17/24 03/18/24
06:59 18:59 06:59
Intake Total 85 / 246.3 145 / 195 50 / 195
Output Total 740 / 1065 1690 / 2510 820 / 2510
Balance -655 / -818.7 -1545 / -2315 -770 / -2315
SaO2: 94
Physical Exam
-
General: Awake
Cardiovascular: Regular rate & rhythm
Respiratory: Clear and Equal
Sternum: Stable
Incision: Clean, Dry and Intact
Extremities: Edema +1
--- NOTE | 2024-03-18 05:40 | PTCARENOTE ---
no acute changes in assessment overnight, pt VSS. SR w PVCs 60s. pt hypoxic this morning on room air POX 88%. placed on 2LNC, POX now 92%. IS encouraged. minimal CT output overnight. RIJ cordis maintained. all surgical sites stable. AM labs drawn
and sent. pt sleeping between care.
[2024-03-18] MEDS: TYLENOL 1000 MG PO ×3 (05:42→21:43)
[2024-03-18 06:00] LABS: Hematocrit 26.5 % (39.0-52.0); Mean Corpuscular Hgb 28.8 pg (27.0-31.0); Mean Corpuscular Volume 84.7 fL (80.0-94.0); Mean Platelet Volume 12.4 fL (7.4-10.4); Platelet Count 136 10^3/uL (130-400); Red Blood Cell Count 3.13 10^6/uL (4.70-6.10); Red Cell Dist. Width 13.3 % (11.5-14.5)
[2024-03-18 06:31] LABS: Blood Urea Nitrogen 71 mg/dl (9-20); Calcium 8.4 mg/dl (8.4-10.2); Carbon Dioxide 29 mmol/L (22-30); Chloride 96 mmol/L (98-107); Estimated Creatinine Clearance 25 ml/min; Glucose 113 mg/dl (70-99); Magnesium 2.2 mg/dl (1.6-2.3); Potassium 4.2 mmol/L (3.5-5.1); Sodium 136 mmol/L (135-145)
[2024-03-18] MEDS: LOPRESSOR 2.5 MG IV (08:11)
[2024-03-18] MEDS: DILAUDID 0.5 MG IV (08:19)
[2024-03-18] MEDS: FLEXERIL 5 MG PO (08:25)
[2024-03-18] MEDS: LOW STRENGTH ASPIRIN 81 MG PO (08:26)
[2024-03-18] MEDS: ZETIA 10 MG PO (08:26)
[2024-03-18] MEDS: MAGNESIUM OXIDE 500 MG PO ×2 (08:26→20:41)
[2024-03-18] MEDS: NEURONTIN 100 MG PO ×3 (08:26→21:44)
[2024-03-18] MEDS: PLAVIX 75 MG PO (08:26)
[2024-03-18] MEDS: PROTONIX 40 MG PO (08:26)
[2024-03-18] MEDS: SENOKOT-S 1 TABLET PO ×2 (08:26→20:41)
[2024-03-18] MEDS: LIDOCAINE 4% PATCH 1 PATCH TOPICAL (08:26)
[2024-03-18] MEDS: BACTROBAN 2% OINTMENT 1 APPLIC NASAL ×2 (08:27→20:40)
[2024-03-18] MEDS: CORDARONE 103 MG IV (08:27)
[2024-03-18] MEDS: CORDARONE 518 MG IV (08:39)
--- NOTE | 2024-03-18 09:06 | PTCARENOTE ---
Assumed pt care. Walking rounds completed with previous RN. Pt Resting in bed at time of assessment. AAO x 4, reports 7-8/10 sternal/L chest discomfort. PRN Dilaudid & Flexeril given for pain. Pt went into ZENIA with RVR - HR 140's on telemetry. Pt
converted to NSR/SB after ~ 30 mins s/p 2.5 mg IV Lopressor & Amiodarone bolus x 1. Pt transitioned to Amiodarone gtt per protocol. Epicardial v-wire placed to back-up 40/10 while pt in ZENIA. Pt on 2L NC, POX 94%, IS & CDB encouraged, breath sounds
diminished in B/L bases. Pt assisted OOB to chair, weight obtained on standing scale. Reports indigestion after breakfast, positioned upright. BS audible, voiding in urinal/bathroom. Pt ambulating to bathroom and tolerating activity. Procedural
sites intact. RIJ Cordis maintained with KVO. PIV x 1 present & patent. See MAR.
[2024-03-18] MEDS: LASIX 40 MG IV (09:15)
[2024-03-18] MEDS: COREG 6.25 MG PO (09:15)
--- NOTE | 2024-03-18 10:08 | W.PN.NEPH.PH ---
Today's Communication / Plan
-
follow BMP
Assessment/Plan
-
IMP:
acute on chronic systolic HFrEF 28%-after CABG 40%
MVD on cath 03/08
S/P On pump no clamp Cabg x 4 (Juan- lad, Татьяна- diag/ramus, Ao-svg-om1)/REVH/ LAAL #40 clip/RSF, by Dr. Turk, 03/15/24
Ischemic cardiomyopathy
uncontrolled hypertension possibly renovascular-improved on Minoxidil
disseminated vascular disease
Recent acute hypoxic respiratory failure
HUEY on CKD 3B -cr 1.7-2, Dr Donald
Renal artery stenosis -treated with angioplasty in the past.
Infrarenal abdominal aortic aneurysm
Carotid stenosis s/p right CEA in the past.
Hyperlipidemia
significant orthostatic BP fluxes without symptoms
Patent RRA- Left RA not well visualized on Abd MRI
Plan:
follow BMP
on OP meds
-
-
Date of Service: March 18, 2024
CC / HPI / ROS
-
Chief Complaint:
HUEY
History of Present Illness:
HUEY/Cr down to 2.5
Hemodynamically stable
PVR 390cc, off balbuena 03/16
s/p CABG 03/15
Review of Systems:
feels well
no CP
some pain at tube sites
no abd pain.
tolerating po
Labs
-
Labs:
WBC 15.0 10^3/uL (4.8-10.8) H 03/18/24 05:30
RBC 3.13 10^6/uL (4.70-6.10) L 03/18/24 05:30
Hgb 9.0 g/dL (13.0-18.0) L 03/18/24 05:30
Hct 26.5 % (39.0-52.0) L 03/18/24 05:30
Plt Count 136 10^3/uL (130-400) 03/18/24 05:30
Sodium 136 mmol/L (135-145) 03/18/24 05:30
Potassium 4.2 mmol/L (3.5-5.1) 03/18/24 05:30
Chloride 96 mmol/L (98-107) L 03/18/24 05:30
Carbon Dioxide 29 mmol/L (22-30) 03/18/24 05:30
BUN 71 mg/dl (9-20) H 03/18/24 05:30
Creatinine 2.5 mg/dL (0.7-1.3) H 03/18/24 05:30
eGFR 27.30 03/18/24 05:30
Glucose 113 mg/dl (70-99) H 03/18/24 05:30
Calcium 8.4 mg/dl (8.4-10.2) 03/18/24 05:30
Lot-L-Xojqngwrpyd Pept 2000 pg/ml 03/09/24 03:01
Albumin 3.9 g/dl (3.5-5.0) 03/11/24 03:11
Physical Exam
-
Vital Signs:
Vital Signs
Temp Pulse Resp BP Pulse Ox
97.7 F 120 20 129/88 94
03/18/24 08:00 03/18/24 08:06 03/18/24 08:00 03/18/24 08:17 03/18/24 08:00
Cardiovascular:: Regular rate and rhythm
Respiratory:: Bilateral: Coarse
Lung Excursion:: Normal
Abdomen:: Nontender and Soft
Bowel Sounds:: Normal
Extremity Edema:: None: Bilateral:
[2024-03-18] MEDS: NSS IV (10:10)
--- NOTE | 2024-03-18 10:41 | PTCARENOTE ---
Pt assisted into bed. RIJ re-dressed. L Pleural CT removed as ordered without issue. Occlusive dressing applied to site. R pleural maintained to bulb & redressed. Pt assisted OOB to chair without issue. Remain SB in 50's on monitor, amiodarone gtt
con't.
[2024-03-18] MEDS: APRESOLINE 25 MG PO ×2 (10:42→20:40)
--- NOTE | 2024-03-18 11:58 | CM ---
Reviewed chart. Met with Mr Alas to review discharge plans. He states he is feeling well and maybe able to go home soon. HE states they are going to ambulate later today. Prior to admission he resides alone in a one story mobile home with
one step to enter. Prior to admission he was independent with ambulation and adls. He does not have any DME in the home. He states his friend Roseline will provide transportation home. She will also assist him with shopping etc. We reviewed a home
visit by the Cardiothoracic Transitional Care Nurse. He is agreeable to a home visit. He does not have a prescription plan and uses [facility]. He is aware of the Good RX coupon. Medical work-up in progress. The discharge plan is to
return home with his friends support and a home visit by the Cardiothoracic Transitional Care Nurse when medically stable.
--- NOTE | 2024-03-18 12:50 | PTCARENOTE ---
pt received from previous RN, agree w/ previous assessment. pt OOB in chair for lunch. 97% POX on RA. amiodarone gtt running as ordered.
--- NOTE | 2024-03-18 13:23 | W.PN.CD ---
Today's Communication / Plan
-
Cont carvedilol, consider restarting Imdur and Hydralazine
Cont amio gtt for AF
OOB ambulate as able
Impression / Plan
-
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
failure with acute pulmonary edema and a new diagnosis of ischemic cardiomyopathy, transferred for repeat catheterization and subsequent CABG evaluation now status post CABG 03/15.
#CAD status post CABG 03/15
-Cabg x 4 (Juan- lad, Татьяна- diag/ramus, Ao-svg-om1)/REVH/ LAAL #40 clip/RSF
-Continue aspirin, ezetimibe.
-Routine post operative care per primary surgical team.
-Pain/chest tube management per CT surgery.
-Had ST elevations in anterior leads yesterday prompting repeat echocardiogram which was stable from prior
-ECG somewhat improved today. Suspect he may have an evolving aneurysm.
# AF RVR
- resolved with lopressor and amio
- cont amio gtt re-evaluate tomorrow
- cont beta luis
# HUEY improved 2.5 today
-Likely due to intraoperative decreased perfusion
-Continue to trend, hold nephrotoxic meds
-Hold diuresis
#ICMO, EF 25-30%
-New diagnosis.
-Not currently in decompensated heart failure.
-GDMT is limited by renal function.
- Previously on carvedilol, isosorbide mononitrate, hydralazine.
- cont coreg
- consider restarting IMDUR and Hydralazine
#Hypertension/Hypertensive crisis
-Acute on chronic, now controlled.
-Resume home medications as tolerated
#AAA/Focal dissection
-Chronic.
-Records from [facility] reviewed.
-Involving the left renal artery.
-AAA = 3.0 cm on MRI from 03/04/2024 with focal dissection, medically managed.
#CKD3b/DORY
-Stable. GFR = 30-35.
-Remote renal artery stenosis s/p renal artery stent placement.
-Monitor with medication adjustments.
#HLD
-Chronic, stable.
-Total cholesterol = 169, LDL = 89, HDL = 49, Triglycerides = 158.
-Intolerance of atorvastatin.
-Continue ezetimibe 10 mg daily.
-Rechallenge with statin vs. PCSK9i as outpatient
-Goal LDL < 55, triglycerides < 150.
Subjective:
Feels well hopeful to leave tomorrow
PCP: Veronica áSnchez NP
CDY: Micha Shelton MD
Physical Exam
Vital Signs/Labs
Vital Signs
Temp Pulse Resp BP Pulse Ox
97.5 F 50 16 113/66 97
03/18/24 12:43 03/18/24 12:31 03/18/24 12:43 03/18/24 12:31 03/18/24 12:43
03/17/24 03/18/24 03/19/24
06:59 06:59 06:59
Actual Weight 146 lb 9.718 oz
03/18/24 05:30
03/18/24 05:30
PT 16.8 Sec (11.4-14.6) H 03/15/24 13:06
INR 1.38 03/15/24 13:06
APTT 30.7 Sec (23.4-35.0) 03/15/24 13:06
Magnesium 2.2 mg/dl (1.6-2.3) 03/18/24 05:30
Triglycerides 158 mg/dl (10-149) H 03/09/24 03:01
LDL Cholesterol, Calc 89 mg/dl 03/09/24 03:01
VLDL Cholesterol, Calc 31 mg/dl (0-30) H 03/09/24 03:01
HDL Cholesterol 49 mg/dl 03/09/24 03:01
03/09/24
03:01
Tbd-K-Zqfnyrgahdk Pept 2000
Physical Exam
Constitutional: No acute distress and Comfortable
EENT: Anicteric
Cardiovascular: Rhythm & rate is regular and Pedal edema is absent
Respiratory: Respiratory effort normal and Lungs clear to auscul.
GI: Soft
Neuro/Psych: AO x 3
Data Reviewed
-
Date of Service: March 18, 2024
EKG: Tracing Personally Visualized and interpreted (sr)
Echo: Report Reviewed by me
Labs: Labs Reviewed by me
--- NOTE | 2024-03-18 16:01 | PTCARENOTE ---
pt VSS, no changes in assessment. R pleural CT dressing changed. IS encouraged. OOB in chair. voiding in urinal. amiodarone gtt running as ordered.
[2024-03-18] MEDS: COREG PO (20:40)
--- NOTE | 2024-03-18 21:00 | PTCARENOTE ---
Report received from SANKET Silver. Walking rounds done. Pt in bed, awake,alert, oriented x 4. Speech clear. Moves all extremities equally. Room air sat 96-98% while awake. BBS present. Diminished bilaterally. CDB and IS encouraged. IS peak 1250 mls.
Audible heart tones. Pt in SB, rate 50's. Amiodarone gtt at 0.5 mg/min per protocol. Coreg held at 2000 per PA order. BP 145/74. Hydralazine 25 mg po given as scheduled. V wire attached to temp PM, back up rate 40, mA 10. R pleural CT to bulb
suction with SSG drainage. For pulse and wound assessments, see flowsheets. Belly soft, nontender. Normoactive bs x 4. Reports passing flatus. No BM post op yet. Voids clear, yellow urine in urinal. Pt given CHG bath, face washed, new gown provided.
Ongoing plan of care. 1L/NC applied at bedtime as pt sats 91% when lying flat on room air when attempting to go to sleep. Sats increased to 96%.
[2024-03-19] VITALS (14 sets, daily range): BP systolic 130–183; BP diastolic 67–81; PULSE 54; O2SAT 93–99; BMI 24.1
--- NOTE | 2024-03-19 00:57 | PTCARENOTE ---
Repeat BP 150/70. Pt sleeping. Hydralazine 25 mg po was given at 2039. Ed, PA notified of BP. Ongoing monitoring of BP.
[2024-03-19] MEDS: TYLENOL 1000 MG PO ×3 (04:48→22:39)
[2024-03-19 04:54] LABS: Hematocrit 25.8 % (39.0-52.0); Hemoglobin 8.8 g/dL (13.0-18.0); Mean Corp Hgb Conc. 34.1 g/dL (33.0-37.0); Mean Corpuscular Hgb 28.2 pg (27.0-31.0); Mean Corpuscular Volume 82.7 fL (80.0-94.0); Mean Platelet Volume 12.3 fL (7.4-10.4); Platelet Count 161 10^3/uL (130-400); Red Blood Cell Count 3.12 10^6/uL (4.70-6.10); Red Cell Dist. Width 13.3 % (11.5-14.5)
--- NOTE | 2024-03-19 04:57 | PTCARENOTE ---
Labs drawn and sent. Pt with c/o mild DELGADO to L side of head. No neuro deficits. Scheduled Tylenol given early. Ongoing plan of care of pain assessment. Pt remains in SB. Amiodarone gtt infusing at 0.5 mg/min through cordis. Last BP 155 systolic.
--- NOTE | 2024-03-19 05:31 | W.PN.CT ---
Today's Communication / Plan
-
-No major issues overnight. Hemodynamically and neurologically intact
-Currently on Amiodarone gtt for postop PAF x ~1hr. Now in sinus maggy @ 53 bpm (baseline). Will d/c amiodarone gtt today per protocol
-Known hypertensive pt, on several antihypertensives
-Pt should benefit from BP on higher side (SB >/= 120 and </= 150) given hx of carotid artery disease, postop HUEY to help with perfusion
-Postop HUEY on CKD 3b, resolved, Nephrology following. Appears to be back to to baseline creatinine of 2.1 today. U/O in 24hrs: 3625 mL
-Cont. diuresis and replete electrolytes
-Cont. current meds (ASA, Plavix, Zetia, BB; Amiodarone)�
-Encourage use of IS
-F/U 2-view cxr tomorrow
-Maintain cordis another day
-Maintain temporary PW, will cut before d/C home
-OOB into chair/Ambulate
-Home likely tomorrow
Assessment / Plan
-
Assessment:
-S/P On pump no clamp Cabg x 4 (Juan- lad, Татьяна- diag/ramus, Ao-svg-om1)/REVH/ LAAL #40 clip/RSF, by Dr. Turk, 03/15/24, pod#4
-Severe 3v CAD/severe LM stenosis
-Acute on chronic systolic CHF
-ICM (EF 29%, has improved to 40%)
-HTN/uncontrolled (improved on Minoxidil)
-HLD
-Prediabetes (Hgb A1C 5.7)
-Preop bradycardia, 47 bpm
-CKD stage 3b
-Renal artery stenosis S/p Angioplasty
-Infrarenal AAA/Type B dissection
-B/L carotid artery stenosis S/P R CEA; LICA occluded
-Hx of orthostatic hypotension
-Acute postop blood loss/Anemia (stable without blood transfusion)
-Acute postop atelectasis
-Acute postop hypovolemia with subsequent hypervolemia
-Acute postop HUEY on CKD stage 3b
-Acute postop brief (~1hr) a-fib with RVR
Discussed patient care with: Cardiology, Nursing, Respiratory Therapy, Pharmacy and Care Team
Subjective
Procedure
On pump no clamp Cabg x 4 (Juan- lad, Татьяна- diag/ramus, Ao-svg-om1)/REVH/ LAAL #40 clip/RSF, by Dr. Turk, 03/15/24
-
Date of Service: March 19, 2024
Pt c/o mild incisional pain, otherwise feel well
Objective Data
-
Lab Results
03/19/24 04:45
PT 16.8 Sec (11.4-14.6) H 03/15/24 13:06
INR 1.38 03/15/24 13:06
APTT 30.7 Sec (23.4-35.0) 03/15/24 13:06
Vital Signs
Vital Signs
Temp Pulse Resp BP Pulse Ox
98.3 F 52 16 155/73 98
03/19/24 04:00 03/19/24 04:00 03/19/24 04:00 03/19/24 04:00 03/19/24 04:00
CT Intake/Output/Weight
03/18/24 03/18/24 03/19/24
06:59 18:59 06:59
Intake Total 360 / 505 796.5 / 1079.9 283.4 / 1079.9
Output Total 1625 / 3315 1430 / 3290 1860 / 3290
Balance -1265 / -2810 -633.5 / -2210.1 -1576.6 / -2210.1
SaO2: 98 (1L)
Physical Exam
-
General: Awake, Oriented and AOx3
Cardiovascular: Regular rate & rhythm, No Murmurs, No Rub and No Gallop
Respiratory: Decreased Breath Sounds (at bases, otherwise clear)
Sternum: Stable
Incision: Clean, Dry, Intact and Dressing Intact
Extremities: Other (+trace edema)
Data Reviewed
-
Lab Results: Results Reviewed
Medications: Active Meds Reviewed
Chest X-Ray: Report Reviewed and Image Reviewed
ECG: Report Reviewed and Image Reviewed
[2024-03-19 05:40] LABS: Blood Urea Nitrogen 62 mg/dl (9-20); Calcium 8.6 mg/dl (8.4-10.2); Carbon Dioxide 33 mmol/L (22-30); Chloride 96 mmol/L (98-107); Estimated Creatinine Clearance 29 ml/min; Glucose 124 mg/dl (70-99); Magnesium 2.3 mg/dl (1.6-2.3); Potassium 4.3 mmol/L (3.5-5.1); Sodium 137 mmol/L (135-145); eGFR 33.45
--- NOTE | 2024-03-19 06:39 | PTCARENOTE ---
Pt got up to recliner chair independently. Pt then weighed on standing scale. Pt helpede back to chair. Pt now on room air. Sat 99%. Heart rhythm is in SB, 50's. Amio gtt at 0.5 mg/min.
--- NOTE | 2024-03-19 08:00 | PTCARENOTE ---
pt received from previous RN, oriented, OOB in chair. SB on the monitor, HR 50s. V wire in place, VVI 40/10. SBP 130s. palpable pulses, no edema. pt on RA, 97-98% POX, lungs clear, diminished in bases. IS encouraged. CT x1 to bulb. pt abdomen s/n,
denies n/v. diet tolerated well. voids. sternal incision SHIRIN, approximated. chest tube site c/d/i. RIJ cordis maintained. PIV. amiodarone gtt running per protocol. see worklist for VS, I&O, and assessment.
[2024-03-19] MEDS: COREG PO (08:17)
--- NOTE | 2024-03-19 09:16 | W.PN.NEPH.PH ---
Today's Communication / Plan
-
follow BMP
Assessment/Plan
-
IMP:
acute on chronic systolic HFrEF 28%-after CABG 40%
MVD on cath 03/08
S/P On pump no clamp Cabg x 4 (Juan- lad, Татьяна- diag/ramus, Ao-svg-om1)/REVH/ LAAL #40 clip/RSF, by Dr. Turk, 03/15/24
Ischemic cardiomyopathy
uncontrolled hypertension possibly renovascular-improved on Minoxidil
disseminated vascular disease
Recent acute hypoxic respiratory failure
HUEY on CKD 3B -cr 1.7-2, Dr Donald
Renal artery stenosis -treated with angioplasty in the past.
Infrarenal abdominal aortic aneurysm
Carotid stenosis s/p right CEA in the past.
Hyperlipidemia
significant orthostatic BP fluxes without symptoms
Patent RRA- Left RA not well visualized on Abd MRI
Plan:
follow BMP
on OP meds
dc planning
-
-
Date of Service: March 19, 2024
CC / HPI / ROS
-
Chief Complaint:
HUEY
History of Present Illness:
HUEY/Cr down to 2.1
Hemodynamically stable
urinating fine
s/p CABG 03/15
Review of Systems:
feels well
no CP
Labs
-
Labs:
WBC 12.0 10^3/uL (4.8-10.8) H 03/19/24 04:45
RBC 3.12 10^6/uL (4.70-6.10) L 03/19/24 04:45
Hgb 8.8 g/dL (13.0-18.0) L 03/19/24 04:45
Hct 25.8 % (39.0-52.0) L 03/19/24 04:45
Plt Count 161 10^3/uL (130-400) 03/19/24 04:45
Sodium 137 mmol/L (135-145) 03/19/24 04:45
Potassium 4.3 mmol/L (3.5-5.1) 03/19/24 04:45
Chloride 96 mmol/L (98-107) L 03/19/24 04:45
Carbon Dioxide 33 mmol/L (22-30) H 03/19/24 04:45
BUN 62 mg/dl (9-20) H 03/19/24 04:45
Creatinine 2.1 mg/dL (0.7-1.3) H 03/19/24 04:45
eGFR 33.45 03/19/24 04:45
Glucose 124 mg/dl (70-99) H 03/19/24 04:45
Calcium 8.6 mg/dl (8.4-10.2) 03/19/24 04:45
Klp-Q-Wveefzxizvl Pept 2000 pg/ml 03/09/24 03:01
Albumin 3.9 g/dl (3.5-5.0) 03/11/24 03:11
Physical Exam
-
Vital Signs:
Vital Signs
Temp Pulse Resp BP Pulse Ox
97.5 F 52 16 130/71 98
03/19/24 08:00 03/19/24 08:35 03/19/24 08:00 03/19/24 08:35 03/19/24 08:35
Cardiovascular:: Regular rate and rhythm
Respiratory:: Bilateral: Coarse
Lung Excursion:: Normal
Abdomen:: Nontender and Soft
Bowel Sounds:: Normal
Extremity Edema:: None: Bilateral:
[2024-03-19] MEDS: MAGNESIUM OXIDE 500 MG PO ×2 (09:19→20:20)
[2024-03-19] MEDS: ZETIA 10 MG PO (09:19)
[2024-03-19] MEDS: NEURONTIN 100 MG PO ×3 (09:19→22:39)
[2024-03-19] MEDS: PLAVIX 75 MG PO (09:19)
[2024-03-19] MEDS: SENOKOT-S 1 TABLET PO ×2 (09:19→20:20)
[2024-03-19] MEDS: PROTONIX 40 MG PO (09:19)
[2024-03-19] MEDS: LIDOCAINE 4% PATCH 1 PATCH TOPICAL (09:19)
[2024-03-19] MEDS: LOW STRENGTH ASPIRIN 81 MG PO (09:19)
[2024-03-19] MEDS: BACTROBAN 2% OINTMENT 1 APPLIC NASAL (09:20)
[2024-03-19] MEDS: APRESOLINE PO (09:32)
[2024-03-19] MEDS: LASIX 20 MG IV (10:48)
[2024-03-19] MEDS: KCL 20 MEQ PO (10:48)
--- NOTE | 2024-03-19 11:13 | W.PN.CD ---
Today's Communication / Plan
-
Remains in sinus rhythm/sinus bradycardia continue to monitor heart rates and monitor for recurrent A-fib
Beta-luis on hold due to heart rates
Patient still receiving amiodarone
Impression / Plan
-
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
failure with acute pulmonary edema and a new diagnosis of ischemic cardiomyopathy, transferred for repeat catheterization and subsequent CABG evaluation now status post CABG 03/15.
#CAD status post CABG 03/15
-Cabg x 4 (Juan- lad, Татьяна- diag/ramus, Ao-svg-om1)/REVH/ LAAL #40 clip/RSF
-Continue aspirin, ezetimibe.
-Routine post operative care per primary surgical team.
-Pain/chest tube management per CT surgery.
-Had ST elevations in anterior leads yesterday prompting repeat echocardiogram which was stable from prior
-ECG somewhat improved today. Suspect he may have an evolving aneurysm.
# AF RVR
-Remains in sinus overnight. Sinus bradycardia with heart rates in the 50s limit use of both beta-luis and amiodarone
-Will transition from IV to oral amiodarone and hold beta-luis currently
-Monitor for recurrence of A-fib
-Monitor heart rates
# HUEY improved 2.1today
-Likely due to intraoperative decreased perfusion
-Continue to trend, hold nephrotoxic meds
-Hold diuresis
#ICMO, EF 25-30%
-New diagnosis.
-Not currently in decompensated heart failure.
-GDMT is limited by renal function.
- Previously on carvedilol, isosorbide mononitrate, hydralazine.
- cont coreg
- consider restarting IMDUR and Hydralazine
#Hypertension/Hypertensive crisis
-Acute on chronic, now controlled.
-Resume home medications as tolerated
#AAA/Focal dissection
-Chronic.
-Records from [facility] reviewed.
-Involving the left renal artery.
-AAA = 3.0 cm on MRI from 03/04/2024 with focal dissection, medically managed.
#CKD3b/DORY
-Stable. GFR = 30-35.
-Remote renal artery stenosis s/p renal artery stent placement.
-Monitor with medication adjustments.
#HLD
-Chronic, stable.
-Total cholesterol = 169, LDL = 89, HDL = 49, Triglycerides = 158.
-Intolerance of atorvastatin.
-Continue ezetimibe 10 mg daily.
-Rechallenge with statin vs. PCSK9i as outpatient
-Goal LDL < 55, triglycerides < 150.
Subjective:
Comfortable in chair remains in sinus
PCP: Veronica Sánchez NP
CDY: Micha Shelton MD
Physical Exam
Vital Signs/Labs
Vital Signs
Temp Pulse Resp BP Pulse Ox
97.8 F 53 16 152/75 97
03/19/24 11:08 03/19/24 11:01 03/19/24 11:08 03/19/24 11:01 03/19/24 11:08
03/18/24 03/19/24 03/20/24
06:59 06:59 06:59
Actual Weight 65.8 kg
03/19/24 04:45
03/19/24 04:45
PT 16.8 Sec (11.4-14.6) H 03/15/24 13:06
INR 1.38 03/15/24 13:06
APTT 30.7 Sec (23.4-35.0) 03/15/24 13:06
Magnesium 2.3 mg/dl (1.6-2.3) 03/19/24 04:45
Triglycerides 158 mg/dl (10-149) H 03/09/24 03:01
LDL Cholesterol, Calc 89 mg/dl 03/09/24 03:01
VLDL Cholesterol, Calc 31 mg/dl (0-30) H 03/09/24 03:01
HDL Cholesterol 49 mg/dl 03/09/24 03:01
03/09/24
03:01
Wol-N-Cmfbfidmcps Pept 1999
Physical Exam
Constitutional: No acute distress
Cardiovascular: Rhythm & rate is regular
Respiratory: Respiratory effort normal
GI: Soft
Neuro/Psych: Alert
Data Reviewed
-
Date of Service: March 19, 2024
Medical Decision Making: Reviewed Test Results
Medical Tests (PFT, Pathology etc): Report Reviewed by me
Labs: Labs Reviewed by me
--- NOTE | 2024-03-19 12:00 | PTCARENOTE ---
pt VSS, pt ambulated in hallway w/ CR, completed stairs. pt placed to bed, R pleural bulb CT dc'd as ordered, dressing c/d/i. oral hygiene performed. amiodarone gtt completed.
[2024-03-19] MEDS: NSS 500 IV (15:53)
[2024-03-19] MEDS: APRESOLINE 25 MG PO ×2 (15:57→22:39)
[2024-03-19] MEDS: PACERONE 200 MG PO (15:57)
--- NOTE | 2024-03-19 16:20 | PTCARENOTE ---
pt VSS, no changes in assessment. pt ambulated in hallway w/ stand by assist. PA aware of BP, scheduled hydralazine given.
[2024-03-19] MEDS: COREG 3.125 MG PO (20:20)
--- NOTE | 2024-03-19 20:49 | PTCARENOTE ---
Assumed care of pt from dayshift RN. Walking rounds completed. Pt AAOx3. Pt is sinus maggy to sinus rhythm on the tele monitor. HR 50-60s. Temporary epicardial v-wire intact and set to VVI 40/10. BP slightly elevated. Last BP 149/73. Palpable pulses
throughout. No edema noted. Pt on RA. POX 98%. Pt independently practicing their IS. Lung sounds diminished at the base. CT dressing CDI. Abdomen soft/nontender. +BS. Pt voiding. +BM. All surgical sites stable. Right IJ cordis and left PIVx1 CDI. Pt
walked the arzate w/ stand by assist. No c/o pain at this time. See worklist for full nursing assessment and interventions. Call cm within reach.
[2024-03-20] VITALS (8 sets, daily range): BP systolic 148–157; BP diastolic 65–77; BMI 24.0
[2024-03-20] MEDS: ANESTHETIC LOZENGE 1 LOZENGE PO ×3 (00:27→11:35)
--- NOTE | 2024-03-20 00:30 | PTCARENOTE ---
No acute changes in assessment. Pt remains sinus maggy to sinus rhythm on the tele monitor. HR 50-60s. BP 151/71. Pt remains on RA. POX 96%. Pt was complaining of his throat being sore - Lozenge ordered. All surgical sites stable. Call cm within
reach.
--- NOTE | 2024-03-20 00:45 | W.PN.CT ---
Today's Communication / Plan
-
Plan:
-No major issues overnight. Hemodynamically and neurologically intact
-No recurrent a-fib, since the 1hr on POD#3. Resumed Coreg @ 3.125 mg BID, Amiodarone on hold given bradycardia
-Postop HUEY on CKD 3b, resolved, Nephrology following. Creatinine 2.0 today, lives @ 1.9-2.2. U/O in 24hrs: 1725 mL
-Cont. diuresis and replete electrolytes
-Off note pt's LVEF improved from 29% preop to 40% postop. Cont. GDMT as tolerated, probable addition of Entresto now that creatinine is at baseline
-Cont. current meds (ASA, Plavix, Zetia, BB; Amiodarone)�
-Encourage use of IS
-F/U 2-view cxr
-D/C cordis
-D/C temporary PW (cut)
-OOB into chair/Ambulate
-Home today
Assessment / Plan
-
Assessment:
-S/P On pump no clamp Cabg x 4 (Juan- lad, Татьяна- diag/ramus, Ao-svg-om1)/REVH/ LAAL #40 clip/RSF, by Dr. Turk, 03/15/24, pod#5
-Severe 3v CAD/severe LM stenosis
-Acute on chronic systolic CHF
-ICM (EF 29%, has improved to 40%)
-HTN/uncontrolled (improved on Minoxidil)
-HLD
-Prediabetes (Hgb A1C 5.7)
-Preop bradycardia, 47 bpm
-CKD stage 3b
-Renal artery stenosis S/p Angioplasty
-Infrarenal AAA/Type B dissection
-B/L carotid artery stenosis S/P R CEA; LICA occluded
-Hx of orthostatic hypotension
-Acute postop blood loss/Anemia (stable without blood transfusion)
-Acute postop atelectasis
-Acute postop hypovolemia with subsequent hypervolemia
-Acute postop HUEY on CKD stage 3b
-Acute postop brief (~1hr) a-fib with RVR
Discussed patient care with: Cardiology, Nursing, Respiratory Therapy, Pharmacy and Care Team
Subjective
Procedure
On pump no clamp Cabg x 4 (Juan- lad, Татьяна- diag/ramus, Ao-svg-om1)/REVH/ LAAL #40 clip/RSF, by Dr. Turk, 03/15/24
-
Date of Service: March 20, 2024
Pt c/o mild incisional pain, otherwise feels well. Yesterday was his birthday, wants to go home
Objective Data
-
PT 16.8 Sec (11.4-14.6) H 03/15/24 13:06
INR 1.38 03/15/24 13:06
APTT 30.7 Sec (23.4-35.0) 03/15/24 13:06
Vital Signs
Vital Signs
Temp Pulse Resp BP Pulse Ox
98.1 F 59 16 154/67 96
03/20/24 00:15 03/20/24 00:17 03/20/24 00:15 03/20/24 00:17 03/20/24 00:15
CT Intake/Output/Weight
03/19/24 03/19/24 03/20/24
06:59 18:59 06:59
Intake Total 310.1 / 1106.6 150.0 / 180.0 30 / 180.0
Output Total 2285 / 3715 640 / 890 250 / 890
Balance -1974.9 / -2608.4 -490.0 / -710.0 -220 / -710.0
SaO2: 96 (RA)
Physical Exam
-
General: Awake, Oriented and AOx3
Cardiovascular: Regular rate & rhythm, No Murmurs, No Rub and No Gallop
Respiratory: Decreased Breath Sounds
Sternum: Stable
Incision: Clean, Dry, Intact and Dressing Intact
Extremities: No Edema
Data Reviewed
-
Lab Results: Results Reviewed
Medications: Active Meds Reviewed
Chest X-Ray: Report Reviewed and Image Reviewed
ECG: Report Reviewed and Image Reviewed
--- NOTE | 2024-03-20 04:18 | PTCARENOTE ---
No change in assessment. Pt sinus maggy to sinus rhythm on the the tele monitor. HR 50-60s. BP 153/75. Pt remains on RA. POX 96%. Pt up ad sriram to void in the bathroom. All surgical sites stable. Pt states pain is controlled at this time. Call cm
within reach.
[2024-03-20 04:23] LABS: Hematocrit 25.1 % (39.0-52.0); Hemoglobin 8.5 g/dL (13.0-18.0); Mean Corp Hgb Conc. 33.9 g/dL (33.0-37.0); Mean Corpuscular Hgb 28.1 pg (27.0-31.0); Mean Corpuscular Volume 82.8 fL (80.0-94.0); Mean Platelet Volume 11.7 fL (7.4-10.4); Platelet Count 187 10^3/uL (130-400); Red Blood Cell Count 3.03 10^6/uL (4.70-6.10); Red Cell Dist. Width 13.3 % (11.5-14.5); White Blood Cell Count 10.8 10^3/uL (4.8-10.8)
[2024-03-20 05:12] LABS: Blood Urea Nitrogen 56 mg/dl (9-20); Calcium 8.3 mg/dl (8.4-10.2); Carbon Dioxide 31 mmol/L (22-30); Chloride 98 mmol/L (98-107); Estimated Creatinine Clearance 30 ml/min; Glucose 101 mg/dl (70-99); Magnesium 2.3 mg/dl (1.6-2.3); Potassium 4.6 mmol/L (3.5-5.1); Sodium 139 mmol/L (135-145); eGFR 35.46
[2024-03-20] MEDS: TYLENOL 1000 MG PO ×2 (06:35→14:07)
[2024-03-20] MEDS: LASIX IV (07:39)
--- NOTE | 2024-03-20 08:30 | PTCARENOTE ---
Assumed care of patient. Walking rounds completed with previous RN. Pt assessed while he was sitting in the chair. Pt A&Ox4. Pt denies pain, shortness of breath, and nausea. WEI with equal strength throughout. Independent in the room and arzate. SB on
tele with rates in the 50s. BP 157/65. Heart tones audible. Bilateral radial and DP pulses palpable. No edema noted. Epicardial v-wire to back up, no pacing spikes noted. POX 100% on RA. Lungs clear throughout. IS encouraged-1500mL achieved.
Occasional dry nonproductive cough noted. Abdomen soft, nontender. +BS. Pt voiding srikanth urine in the toilet. Sternal incision covered with Aquacel-CDI. Old chest tube site dressing CDI. Right groin puncture site SHIRIN. Right SVG harvest incision
approximated and SHIRIN. Right IJ cordis intact. Left forearm PIV intact. See MAR for medication administration. See worklist for complete nursing assessment. Plan of care reviewed and patient in agreement.
[2024-03-20] MEDS: LIDOCAINE 4% PATCH 1 PATCH TOPICAL (08:38)
[2024-03-20] MEDS: MAGNESIUM OXIDE 500 MG PO (08:38)
[2024-03-20] MEDS: ZETIA 10 MG PO (08:38)
[2024-03-20] MEDS: PLAVIX 75 MG PO (08:38)
[2024-03-20] MEDS: PROTONIX 40 MG PO (08:38)
[2024-03-20] MEDS: ALDACTONE 12.5 MG PO (08:38)
[2024-03-20] MEDS: NEURONTIN 100 MG PO (08:38)
[2024-03-20] MEDS: LOW STRENGTH ASPIRIN 81 MG PO (08:38)
[2024-03-20] MEDS: COREG 3.125 MG PO (08:38)
[2024-03-20] MEDS: FLUSH (NSS) 1 FLUSH IV (08:38)
[2024-03-20] MEDS: SENOKOT-S PO (08:39)
[2024-03-20] MEDS: APRESOLINE 25 MG PO (08:39)
[2024-03-20] MEDS: NSS IV (08:50)
--- NOTE | 2024-03-20 09:41 | W.PN.NEPH.PH ---
Today's Communication / Plan
-
dc
Assessment/Plan
-
IMP:
acute on chronic systolic HFrEF 28%-after CABG 40%
MVD on cath 03/08
S/P On pump no clamp Cabg x 4 (Juan- lad, Татьяна- diag/ramus, Ao-svg-om1)/REVH/ LAAL #40 clip/RSF, by Dr. Turk, 03/15/24
Ischemic cardiomyopathy
uncontrolled hypertension possibly renovascular-improved on Minoxidil
disseminated vascular disease
Recent acute hypoxic respiratory failure
HUEY on CKD 3B -cr 1.7-2, Dr Donald
Renal artery stenosis -treated with angioplasty in the past.
Infrarenal abdominal aortic aneurysm
Carotid stenosis s/p right CEA in the past.
Hyperlipidemia
significant orthostatic BP fluxes without symptoms
Patent RRA- Left RA not well visualized on Abd MRI
Plan:
follow BMP
on OP meds
for dc today
-
-
Date of Service: March 20, 2024
CC / HPI / ROS
-
Chief Complaint:
HUEY
History of Present Illness:
HUEY/Cr down to 2.0
Hemodynamically stable
urinating fine
s/p CABG 03/15
Review of Systems:
feels well
no CP
Labs
-
Labs:
WBC 10.8 10^3/uL (4.8-10.8) 03/20/24 03:59
RBC 3.03 10^6/uL (4.70-6.10) L 03/20/24 03:59
Hgb 8.5 g/dL (13.0-18.0) L 03/20/24 03:59
Hct 25.1 % (39.0-52.0) L 03/20/24 03:59
Plt Count 187 10^3/uL (130-400) 03/20/24 03:59
Sodium 139 mmol/L (135-145) 03/20/24 03:59
Potassium 4.6 mmol/L (3.5-5.1) 03/20/24 03:59
Chloride 98 mmol/L (98-107) 03/20/24 03:59
Carbon Dioxide 31 mmol/L (22-30) H 03/20/24 03:59
BUN 56 mg/dl (9-20) H 03/20/24 03:59
Creatinine 2.0 mg/dL (0.7-1.3) H 03/20/24 03:59
eGFR 35.46 03/20/24 03:59
Glucose 101 mg/dl (70-99) H 03/20/24 03:59
Calcium 8.3 mg/dl (8.4-10.2) L 03/20/24 03:59
Thb-E-Wwommshrwbg Pept 2000 pg/ml 03/09/24 03:01
Albumin 3.9 g/dl (3.5-5.0) 03/11/24 03:11
Physical Exam
-
Vital Signs:
Vital Signs
Temp Pulse Resp BP Pulse Ox
97.7 F 57 18 157/65 100
03/20/24 08:00 03/20/24 09:00 03/20/24 08:00 03/20/24 08:34 03/20/24 08:30
Cardiovascular:: Regular rate and rhythm
Respiratory:: Bilateral: Coarse
Lung Excursion:: Normal
Abdomen:: Nontender and Soft
Bowel Sounds:: Normal
Extremity Edema:: None: Bilateral:
[2024-03-20] MEDS: DIOVAN 40 MG PO (10:34)
--- NOTE | 2024-03-20 10:50 | W.PN.CD ---
Today's Communication / Plan
-
Rhythm stable and patient in sinus rhythm patient currently on low-dose Coreg
Continue hydralazine 25 mg 3 times daily can be titrated as needed as outpatient. Note patient was on hydralazine prior to admission
Can add Imdur 30 mg once a day starting tomorrow
Renal function continues to improve would not use ARB, LONNY inhibitor or Entresto
Would not restart minoxidil (which he was on prior to admission )with cardiomyopathy/HFrEF
Impression / Plan
-
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
failure with acute pulmonary edema and a new diagnosis of ischemic cardiomyopathy, transferred for repeat catheterization and subsequent CABG evaluation now status post CABG 03/15.
#CAD status post CABG 03/15
-Cabg x 4 (Juan- lad, Татьяна- diag/ramus, Ao-svg-om1)/REVH/ LAAL #40 clip/RSF
-Continue aspirin, ezetimibe.
-Routine post operative care per primary surgical team.
# Postop anemia. Continue to monitor
# AF RVR
-Brief episode. Remains in sinus greater than 24 hours sinus bradycardia with heart rates in the 50s limit use of both beta-luis and amiodarone
-Patient completed IV amiodarone. Did receive additional beta-luis. IV Amio now stopped. Can continue with beta-luis.
# HUEY improved 2.0today
-Likely due to intraoperative decreased perfusion
-Continue to trend, hold nephrotoxic meds
-Hold diuresis
#ICMO, EF 25-30%
-New diagnosis.
-Not currently in decompensated heart failure.
-GDMT is limited by renal function.
- Previously on carvedilol, isosorbide mononitrate, hydralazine.
- cont coreg
-Currently on hydralazine at 25 mg 3 times daily. Can be titrated as an outpatient
-With heart failure would not resume minoxidil
-Can add Imdur 30 mg a day starting tomorrow
#Hypertension/Hypertensive crisis
-Acute on chronic, now controlled.
-Resume home medications as tolerated
#AAA/Focal dissection
-Chronic.
-Records from [facility] reviewed.
-Involving the left renal artery.
-AAA = 3.0 cm on MRI from 03/04/2024 with focal dissection, medically managed.
#CKD3b/DORY
-Stable. GFR = 30-35.
-Remote renal artery stenosis s/p renal artery stent placement.
-Monitor with medication adjustments.
#HLD
-Chronic, stable.
-Total cholesterol = 169, LDL = 89, HDL = 49, Triglycerides = 158.
-Intolerance of atorvastatin.
-Continue ezetimibe 10 mg daily.
-Rechallenge with statin vs. PCSK9i as outpatient
-Goal LDL < 55, triglycerides < 150.
Subjective:
Comfortable in chair remains in sinus
PCP: Veronica Sánchez NP
CDY: Micha Shelton MD
Physical Exam
Vital Signs/Labs
Vital Signs
Temp Pulse Resp BP Pulse Ox
97.7 F 57 18 157/65 100
03/20/24 08:00 03/20/24 09:00 03/20/24 08:00 03/20/24 08:34 03/20/24 08:30
03/19/24 03/20/24 03/21/24
06:59 06:59 06:59
Actual Weight 65.8 kg 65.3 kg
03/20/24 03:59
03/20/24 03:59
PT 16.8 Sec (11.4-14.6) H 03/15/24 13:06
INR 1.38 10/08/24 13:06
APTT 30.7 Sec (23.4-35.0) 03/15/24 13:06
Magnesium 2.3 mg/dl (1.6-2.3) 03/20/24 03:59
Triglycerides 158 mg/dl (10-149) H 03/09/24 03:01
LDL Cholesterol, Calc 89 mg/dl 03/09/24 03:01
VLDL Cholesterol, Calc 31 mg/dl (0-30) H 03/09/24 03:01
HDL Cholesterol 49 mg/dl 03/09/24 03:01
03/09/24
03:01
Wys-W-Pushfxudcdl Pept 1999
Physical Exam
Constitutional: No acute distress
Cardiovascular: Rhythm & rate is regular
Respiratory: Wheeze Absent and Rhonchi Absent
GI: Soft and Non tender
Neuro/Psych: Alert
Data Reviewed
-
Date of Service: March 20, 2024
Medical Decision Making: Reviewed Test Results
Medical Tests (PFT, Pathology etc): Report Reviewed by me
Labs: Labs Reviewed by me
--- NOTE | 2024-03-20 10:59 | PTCARENOTE ---
Pt assisted into bed. Epicardial v-wire cut by ct pa. Right IJ cordis d/c, dressing applied. VSS. No acute changes from previous assessment.
[2024-03-20 14:39] LABS: Blood Urea Nitrogen 48 mg/dl (9-20); Calcium 8.7 mg/dl (8.4-10.2); Carbon Dioxide 33 mmol/L (22-30); Chloride 95 mmol/L (98-107); Estimated Creatinine Clearance 30 ml/min; Glucose 125 mg/dl (70-99); Potassium 4.8 mmol/L (3.5-5.1); Sodium 136 mmol/L (135-145); eGFR 35.46
--- NOTE | 2024-03-20 15:05 | W.DCSUMMARY ---
Discharge Summary
Discharge Data
Date of Admission: 03/08/24
Date of Discharge: 03/20/24
-
Pending Results: Yes
Additional Pending Results:
Patient will have a basic metabolic panel drawn tomorrow morning
Hospital Course
Patient was a transfer from outside hospital for acute heart failure. The diagnosis of low ejection fraction was new for the patient and therefore he underwent ischemic workup which was positive for multivessel coronary artery disease. Given the
patient's young age, multivessel coronary disease he was considered for bypass surgery and deemed a candidate. He underwent coronary bypass grafting by Dr. Turk on March 15, 2024. Please refer to his separately dictated operative report for
complete details. Postoperatively the patient progressed well. He was transferred to the intensive care unit on low-dose Levophed. He was extubated per protocol on postop day 0. Levophed was weaned off by the morning of postop day #1.
Postoperative day #1: Mediastinal chest tubes were discontinued. Pleural chest tubes were transitioned to bulbs. The patient was given intravenous Lasix. Creatinine did increase to 3 and nephrology was involved prior to surgery. His urine output
remained stable.
Postoperative day #2: Creatinine peaked. Intravenous Lasix was again given. Patient was weaned to room air. Patient began ambulating with cardiac rehab and continued to do well.
Postoperative day #3: Creatinine is now trending down. Left pleural chest tube was removed. Patient was again given IV Lasix. Patient converted to atrial fibrillation for approximately 1 hour. Amiodarone bolus and drip was started.
Postoperative day #4: Following conversion the patient remained bradycardic in the low 50s. Beta-blockers were held. Oral amiodarone was continued.
Postoperative day #5: Oral amiodarone was held. Coreg was given and tolerated. Given the patient's low ejection fraction cardiology was consulted regarding guideline directed therapy. Given that the patient's renal function had returned to
baseline it was decided to give the patient low-dose valsartan 40 mg and low-dose spironolactone 12.5 mg. The patient received a single dose of these medications. Following that discussion cardiology reached out and decided to discontinue these
medications for the time being and allow the patient to recover fully from surgery prior to rechallenging his kidneys. We decided to obtain a another basic metabolic panel this afternoon which shows identical renal function. We will plan another
set of labs to be drawn by home health nursing tomorrow. We will discharge him on hydralazine and Imdur combination. He will continue with Coreg. We will hold amiodarone despite his brief postoperative atrial fibrillation given his bradycardia.
He will not be discharged on anticoagulation as he only had 1 brief episode of atrial fibrillation. He will continue dual antiplatelet therapy for 1 year. Guideline directed therapy can be optimized outpatient as the patient continues to recover
from surgery. I discussed his discharge instructions with him in detail and answered his questions to his satisfaction. He is a patient of Dr. Donell Shelton and he will reach out to his office for an appointment.
This discharge summary was dictated using voice recognition software. As a result please excuse any grammatical or phonetic errors.
Discharge Plan
-
Patient Disposition: Home (Routine Discharge)
Discharge Diagnosis/Procedures: Status post pump assisted coronary artery bypass grafting x 4 (left internal mammary artery-left anterior descending, right internal mammary artery-bag/ramus, saphenous vein graft-obtuse marginal 1)/right lower
extremity endoscopic vein harvest/left atrial appendage ligation #40 clip, by Dr. Turk, 03/15/24
-Severe three-vessel coronary disease/severe left main stenosis
-Acute on chronic systolic congestive heart failure
-Ischemic cardiomyopathy (ejection fraction 29%, has improved to 40%)
-Hypertension/uncontrolled (improved on Minoxidil)
-Hyperlipidemia
-Prediabetes (hemoglobin A1C 5.7)
-Preoperative bradycardia, 47 beats per minute
-Chronic kidney disease stage 3b
-Renal artery stenosis status post angioplasty
-Infrarenal abdominal aortic aneurysm/[place] type B dissection
-Bilateral carotid artery stenosis status post right carotid endarterectomy; left internal carotid artery occluded
-History of orthostatic hypotension
-Acute postoperative blood loss/Anemia (stable without blood transfusion)
-Acute postoperative atelectasis
-Acute postoperative hypovolemia with subsequent hypervolemia
-Acute postoperative acute kidney injury on chronic kidney disease stage 3b
-Acute postoperative brief (~1 hour) atrial fibrillation with rapid ventricular response
Diet: Low Cholesterol and Low Sodium
Activity: No strenuous activity
Driving Restrictions: Not until seen by your Dr
Blood Work: Please have the home health nurses draw a BMP tomorrow morning with results called to the CT surgery team
Specialty Instructions: Weigh Daily- Call MD for wt gain/loss 3 lbs overnight/5 lbs in 1 week
Activity Restrictions/Additional Instructions:
Please call to make appointments for Phase II Cardiac Rehab
[facility]
[address] [place] [address]
[phone] [employer]
ACTIVITY:
-No strenuous activity: no heavy lifting, pushing, pulling anything over 15 pounds for one month
-continue to use stairs as tolerated
DRIVING RESTRICTIONS:
-No driving for one month or until approved by your surgeon
WOUND CARE:
-Shower daily. Use soap & water.
-No lotions, creams or powders on incision area.
DIET:
-continue a low fat/low cholesterol diet.
-IF you are diabetic, continue carb controlled diet.
CARDIAC REHAB:
-Please make appointment to start in 5-6 weeks with your local hospital program. (See Cardiac Rehabilitation Discharge Booklet).
SPECIALTY INSTRUCTIONS:
-Weigh yourself daily. Call your physician for any weight gain/loss of 3 lbs overnight or 5 lbs in one week.
-REPORT any clicking noise or uneven appearance of your sternum to your surgeon immediately.
-If you smoke, you are instructed to quit. The [place] smoking hotline phone number is [phone]
Referrals:
CT Transitional Care Nurse [Outside] (The Cardiothoracic Transitional Care Nurse will call you to set up a visit in 1-2 days.)
Donell Shelton MD [Non-Admitting Privileges] -
Valdo Turk MD [Active] - 04/25/24 9:30 am
Veronica Sánchez CRNP [Family Provider] -
Prescriptions:
New
acetaminophen 325 mg Tablet
650 mg PO Q4HPRN PRN (Reason: mild pain,headache,temp >101F ) Qty: 30 0RF
doxazosin 1 mg Tablet
1 mg PO DAILY Qty: 30 2RF
clopidogrel 75 mg Tablet
75 mg PO DAILY 365 Days Qty: 30 2RF
carvedilol 3.125 mg Tablet
3.125 mg PO BID Qty: 60 1RF
aspirin 81 mg Tablet,Chewable
81 mg PO DAILY Qty: 30 0RF
oxycodone 5 mg Tablet
5 mg PO Q4HPRN PRN (Reason: moderate pain) Qty: 30 0RF
hydralazine 25 mg Tablet
25 mg PO TID Qty: 90 2RF
isosorbide mononitrate 30 mg tablet extended release 24 hr
30 mg PO DAILY Qty: 30 2RF
Continued
ezetimibe [Zetia] 10 mg Tablet
10 mg PO DAILY
Discontinued
labetalol 100 MG tablet
100 mg PO BID
minoxidil 2.5 mg Tablet
5 mg PO DAILY
hydralazine 100 mg Tablet
100 mg PO BID
hydralazine 50 mg Tablet
50 mg PO DAILY
Discharge Orders:
Discharge Patient (As Directed); Ordered 03/20/24
Ordered By: Alexis Jain
Care Plan Goals
Care Plan Goals:
Problem: Readiness for enhanced knowledge related to diagnosis and treatment plan
Goal: Understand your diagnosis and treatment plan needs, including medications if applicable.
Instructions: Know your diagnosis, underlying causes and treatment plan options, including medications if applicable. Consult with your health care team to learn about your diagnosis and treatment plan, including medications if applicable.
Discharge Date and Time
Print Language: THAI
--- NOTE | 2024-03-20 16:30 | PTCARENOTE ---
pt VSS, lab work drawn, PA aware of results. pt discharged home w/ friend Yariel. discharge instructions reviewed w/ patient, questions answered. home meds reviewed, patient aware to not take amiodarone per PA. IV and tele dc'd. pt showered, dressed
self. pt took all belongings home w/ him, left via wheelchair.
== END 2024-03-20 16:30 | disposition home or self-care (01) | DRG 233 ==
LOC: CVICU 10:15
PROVIDERS: Anesthesiology; Clinical Nurse Specialist Acute Care; Internal Medicine Cardiovascular Disease; Nurse Practitioner; Physician Assistant Medical; Specialist; ADMITTING PHYSICIAN Hospitalist; ATTENDING PHYSICIAN Thoracic Surgery (Cardiothoracic Vascular Surgery); CONSULT PHYSICIAN Internal Medicine Critical Care Medicine; FAMILY PHYSICIAN Nurse Practitioner Family; OTHER PHYSICIAN Internal Medicine
PROC: B2111ZZ Fluoroscopy of Multiple Coronary Arteries using Low Osmolar Contrast (ICD-10-PCS; 2024-03-08)
PROC: 4A023N7 Measurement of Cardiac Sampling and Pressure, Left Heart, Percutaneous Approach (ICD-10-PCS; 2024-03-08)
PROC: B2151ZZ Fluoroscopy of Left Heart using Low Osmolar Contrast (ICD-10-PCS; 2024-03-08)
PROC: 02L70CK Occlusion of Left Atrial Appendage with Extraluminal Device, Open Approach (ICD-10-PCS; 2024-03-15)
PROC: 021009F Bypass Coronary Artery, One Artery from Abdominal Artery with Autologous Venous Tissue, Open Approach (ICD-10-PCS; 2024-03-15)
PROC: 5A1221Z Performance of Cardiac Output, Continuous (ICD-10-PCS; 2024-03-15)
PROC: 02100Z9 Bypass Coronary Artery, One Artery from Left Internal Mammary, Open Approach (ICD-10-PCS; 2024-03-15)
PROC: B24BZZ4 Ultrasonography of Heart with Aorta, Transesophageal (ICD-10-PCS; 2024-03-15)
PROC: 02110Z8 Bypass Coronary Artery, Two Arteries from Right Internal Mammary, Open Approach (ICD-10-PCS; 2024-03-15)
DX: I25.10 Atherosclerotic heart disease of native coronary artery without angina pectoris (principal); I50.23 Acute on chronic systolic (congestive) heart failure; I71.33 Infrarenal abdominal aortic aneurysm, ruptured; I13.0 Hypertensive heart and chronic kidney disease with heart failure and stage 1 through stage 4 chronic kidney disease, or unspecified chronic kidney disease; N17.9 Acute kidney failure, unspecified; D62 Acute posthemorrhagic anemia; J98.11 Atelectasis; N18.32 Chronic kidney disease, stage 3b; I65.23 Occlusion and stenosis of bilateral carotid arteries; E78.2 Mixed hyperlipidemia; I25.5 Ischemic cardiomyopathy; I70.1 Atherosclerosis of renal artery; I48.91 Unspecified atrial fibrillation; R00.1 Bradycardia, unspecified; R73.03 Prediabetes; E86.1 Hypovolemia; N99.0 Postprocedural (acute) (chronic) kidney failure; Z79.899 Other long term (current) drug therapy; Z82.49 Family history of ischemic heart disease and other diseases of the circulatory system
CPT/HCPCS: 93308; 71045; 71046; 80048; 80053; 80061; 81003; 82248; 82330; 82565; 82805; 82810; 82947; 82962; 83036; 83735; 83880; 84132; 84302; 84520; 85014; 85018; 85027; 85049; 85610; 85730; 86850; 86900; 86901; 86920; 93005; 93312; 93320; 93325; 93458; 93926; 94002; 94010; C1713; C1894; P9045; P9047; Q9967

== ENCOUNTER → 2025-01-27 07:54 | Outpatient (REF) | payer MEDICARE, OTHER, SELFPAY | LOC: RAD 07:54 | PROVIDERS: ATTENDING PHYSICIAN Registered Nurse; FAMILY PHYSICIAN Nurse Practitioner Family | DX: I65.23 Occlusion and stenosis of bilateral carotid arteries (principal); I77.9 Disorder of arteries and arterioles, unspecified | CPT/HCPCS: 93880; 93922; 93925 ==